=== PATIENT | male | born 1955 | race Caucasian/White ===

== ENCOUNTER 2024-07-10 10:58 | Outpatient (AMB) | payer OTHER, SELFPAY ==
--- NOTE | 2024-07-10 11:28 | AM.OFFWIN_ITS ---
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 Started a week ago Patient Tobacco Use Status: Former Tobacco user Allergies codeine Allergy (Intermediate, Verified 07/10/24 11:35) Headache Do you need a note to return to daycare/school/sports/work: No HPI HPI Comments History of Present Illness Details Patient is a 68-year-old male complaining of 2 days of constipation. He states his constipation has actually been happening for 2 weeks but he started taking MiraLax which helps him have a bowel movement but he has never had issues like this before. He denies any fevers. He does admit to 1 prior abdominal surgery. He states he is passing gas regularly. He states he does get regular colonoscopies in his last 1 was about 10 years ago. [facility] Social History Patient Tobacco Use Status: Former Tobacco user Review of Systems Const All systems reviewed & are unremarkable except as noted in HPI and below Physical Exam Vital Signs: Last Vital Signs Temp 98.1 F 07/10/24 11:29 Pulse 66 07/10/24 11:29 BP 122/78 07/10/24 11:29 Pulse Ox 95 07/10/24 11:29 Oxygen Delivery Method Room Air 07/10/24 11:29 BMI result Body Mass Index 23.0 Const General: cooperative, healthy appearing, comfortable, no acute distress and well developed Orientation/consciousness: patient oriented x3 Limitations: no limitations HEENT Head: Yes normal to inspection Ears: hearing grossly normal bilaterally General nose exam: Normal external nose present Face and sinus: Yes normal facial exam Eyes General: appearance normal, both eyes and all related structures Neck Neck: Yes normal visual inspection and Yes full ROM Resp Effort & Inspection: normal respiratory effort and able to speak in complete sentences GI Inspection: Yes normal to inspection Palpation (GI): Soft to palpation (very small amount of distension) and nontender Auscultation: normal bowel sounds Skin General skin exam: no rashes or lesions noted Neuro General: patient oriented x3 Extrem General: Yes normal to inspection Assessment & Plan Assessment & Plan (1) Constipation: Code(s): K59.00 - Constipation, unspecified Qualifiers: Constipation type: unspecified constipation type Qualified Code(s): K59.00 - Constipation, unspecified Plan: Recommended using daily Colace and senna and Metamucil and then adding in MiraLax as needed, gave him red flag warning signs and when to seek emergent medical care, ie SBO. Also recommended he follow up with his PCP for a colonoscopy if his symptoms continue because he is due for one. Plan see above Coding Level of Care Code Est Pt Level 3 (51064) Diagnoses Constipation, unspecified constipation type K59.00 Constipation type: unspecified constipation type
[2024-07-10 11:29] VITALS: BP 122/78; PULSE 66; TEMP 36.7; O2SAT 95; BMI 23.0
== END 2024-07-10 12:12 | disposition home or self-care (01) ==
PROVIDERS: Visit Provider Physician Assistant
DX: K59.00 Constipation, unspecified (principal)

== ENCOUNTER → 2024-07-10 10:58 | Outpatient (BNVA) | payer OTHER, SELFPAY | DX: K59.00 Constipation, unspecified (principal) ==

== ENCOUNTER 2024-09-12 09:41 | Outpatient (AMB) | payer OTHER, SELFPAY ==
--- NOTE | 2024-09-12 10:05 | MHC.PC.OV ---
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 - see comment Intake Note: establish care Allergies codeine Allergy (Intermediate, Verified 09/12/24 10:06) Headache Medication List - Last Reconciled 09/12/24 by Paulie Her MD ascorbic acid (vitamin C) 1 g PO DAILY atorvastatin 80 mg PO DAILY budesonide-formoterol 160-4.5 mcg/actuation (Symbicort) 1 puff inhalation BID folic acid 1 mg PO DAILY lisinopril 20 mg PO DAILY methotrexate sodium 15 mg PO QWEEK tamsulosin 0.4 mg PO DAILY Tobacco use date assessed: 09/12/24 Fall risk assessment: No Falls in past year Last assessed Fall Risk: 09/12/24 Dental Screening Dental Screen Date: 09/12/24 Did you have a dental visit in the last 12 months?: No Did you have a dental problem in the last 6 months where you did not have access to dental care?: No Was dental information given to patient?: 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 ?? Prior PCP:?Carrie Last office visit/CPE:? > 1 yr ago Acute issue(s):? Umbilical bulge ?? PMHx:? Rheumatoid Arthritis - Dr Santiago. CAD & Stents Cardiology Dr Meek SurgHx:?Umbilical hernia repairs. Coronary stents x 2. HTN. Enlarged prostate. SocHx:? 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 EtOH Social 4 dr a month. No drugs PFSH Surgical History (Updated 09/12/24 @ 10:09 by GENTRY Phillip) Stented coronary artery Social History (Updated 09/12/24 @ 10:09 by GENTRY Phillip) Housing: House Patient Tobacco Use Status: Former Tobacco user e-Cigarette/Vaping Use: Never Used service: No Current occupational status: retired Current occupational exposures/hazards: No Cognitive needs: No Hearing needs: No Vision needs: Yes Questionnaire PHQ-9 Over the last 2 weeks, how often have you been bothered by any of the following problems? 1. Little interest or pleasure in doing things: not at all 2. Feeling down, depressed, or hopeless: not at all 3. Trouble falling or staying asleep, or sleeping too much: not at all 4. Feeling tired or having little energy: not at all 5. Poor appetite or overeating: not at all 6. Feeling bad about yourself - or that you are a failure or have let yourself or your family down: not at all 7. Trouble concentrating on things, such as reading the newspaper or watching television: not at all 8. Moving or speaking so slowly that other people could have noticed. Or the opposite - being so fidgety or restless that you have been moving around a lot more than usual: not at all 9. Thoughts that you would be better off or of hurting yourself in some way: not at all Total score: 0 Depression Screening Interpretation: Negative Depression Screening Done: Yes 50198 - PHQ-9 Billing: Yes Source: Developed by Drs. Aba Larsen, Soraya Marcelino, Indra Duran and colleagues, with an educational lisette from [employer]. Thrive Questionnaire Date Thrive assessed: 09/12/24 I am a: Patient What is your living situation today?: I have a steady place to live Within the past 12 months, did the food you bought not last and you didn't have the money to get more?: Never true Within the past 12 months, did you worry whether your food would run out before you got money to buy more?: Never true Do you have trouble paying for medicines?: No Do you have trouble getting transportation to medical appointments?: No Do you have trouble paying your heating and electricity bill?: No Do you have trouble taking care of your child, family member or friend?: No Do you have trouble with day-to-day activities such as bathing, preparing meals, shopping, managing finances, etc.?: No Are you currently unemployed and looking for a job?: No Are you interested in more education?: No Please select the resources that you would like help with: None Currently or been in a relationship where the following occur: No concerns reported THRIVE Score: 0 AUDIT C Alcohol Use Questionnaire (AUDIT-C) 1. How often do you have a drink containing alcohol?: Monthly or less 2. How many drinks containing alcohol do you have on a typical day when you are drinking?: 1 or 2 3. How often do you have six or more drinks on one occasion?: Never Total Score: 1 OTONIEL-7 AMB Questionnaire OTONIEL-7 Date OTONIEL - 7 assessed: 09/12/24 Feeling nervous, anxious, or on edge: 0 = Not at all Not being able to stop or control worryin = Not at all Worrying too much about different things: 0 = Not at all Trouble relaxin = Not at all Being so restless that it is hard to sit still: 0 = Not at all Becoming easily annoyed or irritable: 0 = Not at all Feeling afraid as if something awful might happen: 0 = Not at all Total OTONIEL-7 score (0-4 normal; 5-9 mild; 10-14 moderate; 15-21 severe): 0 Source: Developed by Drs. Aba Larsen, Soraya Marcelino, Indra Duran and colleagues, with an educational lisette from [employer]. OTONIEL-7 Assessment Billing OTONIEL-7 Assessment Tool: OTONIEL-7 Assessment 11509 Review of Systems Const Denies chills, Denies fatigue, Denies fever(s), Denies headache(s) and Denies weakness ENT Denies dizziness and Denies headache(s) Card Denies chest pain, Denies lightheadedness, Denies dyspnea and Denies other (Palpitations) Resp Denies cough, Denies dyspnea, Denies wheezing and Denies other ( shortness of breath) Musc Denies numbness and Denies tingling Neuro Denies dizziness, Denies headache(s), Denies numbness, Denies tingling, Denies paresthesias and Denies weakness Psych Denies anxiety and Denies depression Endo Denies fatigue Aller/Immun Denies wheezing Physical exam (Primary Care) Vital Signs: Last Vital Signs Temp 98.1 F 09/12/24 10:11 Pulse 85 09/12/24 10:11 Resp 14 09/12/24 10:11 BP 133/65 09/12/24 10:11 Pulse Ox 95 09/12/24 10:11 Oxygen Delivery Method Room Air 09/12/24 10:11 BMI result Body Mass Index 22.7 Tobacco/Smoking Status: Tobacco use Status Tobacco use date assessed 09/12/24 09/12/24 10:15 Patient Tobacco Use Status Former Tobacco user 09/12/24 10:15 e-Cigarette/Vaping Use Never Used 09/12/24 10:15 PHQ-9: PHQ-9 Score PHQ-9: Total score 0 09/12/24 10:15 Depression Screening Interpretation: Negative Thrive Assessment: Date of Thrive Assessment Date Thrive assessed 09/12/24 09/12/24 10:15 Currently or been in a relationship where the following occur: No concerns reported Const General: no acute distress and well developed Nutritional Appearance: well nourished Orientation/consciousness: patient oriented x3 HENMT Head: Yes normocephalic and Yes atraumatic Eyes General: appearance normal, both eyes and all related structures Pupils: Equal, round and reactive pupils present EOM: EOMs intact bilaterally Resp Effort & Inspection: normal respiratory effort Auscultation: clear to auscultation bilaterally Cardio Rate: regular rate Rhythm: regular rhythm Heart sounds: S1 normal heart sound present, S2 normal heart sound present, no gallops, no murmurs and no rubs Neuro General: patient oriented x3 and gait normal Cranial nerves: Yes Equal, round and reactive pupils present Psych Affect: normal affect Coding Level of Care Code New Pt Level 3 (30058) Diagnoses CAD (coronary artery disease) I25.10 Hypertension I10 Rheumatoid arthritis M06.9 Umbilical mass R19.09 Smoker F17.200 Incomplete emptying of bladder R33.9 Laboratory exam ordered as part of routine general medical examination Z00.00 Additional Codes OTONIEL-7 Assessment Billing - OTONIEL-7 Assessment Tool: OTONIEL-7 Assessment 45773 ([id number]) PHQ-9 - 51489 - PHQ-9 Billing: Yes ([id number]) Assessment & Plan Assessment & Plan (1) CAD (coronary artery disease): Code(s): I25.10 - Atherosclerotic heart disease of [place] coronary artery without angina pectoris Category: Medical Plan: Stable.??Patient?is?on?atorvastatin?and?followed?by?cardiology Control?blood?pressure.??Goal?is?less?than?30/80 Follow-up?with?Cardiology?as?recommended (2) Hypertension: Code(s): I10 - Essential (primary) hypertension Category: Medical Plan: Blood?pressure?is?fairly?well?controlled?on?lisinopril?20?mg?daily.??Goal?is?less?than?130/80 Continue?current?medication Full?with?Cardiology (3) Rheumatoid arthritis: Code(s): M06.9 - Rheumatoid arthritis, unspecified Category: Medical Plan: He?is?methotrexate?and?followed?[facility]?as?recommended (4) Umbilical mass: Code(s): R19.09 - Other intra-abdominal and pelvic swelling, mass and lump Category: Medical Plan: History?umbilical?hernia?repair Patient?has?new?herniations?likely?through?mesh Referred?to?general?surgery (5) Smoker: Code(s): F17.200 - Nicotine dependence, unspecified, uncomplicated Category: Social Hx Plan: Patient?was?30+?year?smoker?quit?less?than?15?years?ago He?says?he?is?due?for?LDCT?which?ordered?today. 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?urology (7) Laboratory exam ordered as part of routine general medical examination: Code(s): Z00.00 - Encounter for general adult medical examination without abnormal findings Category: Medical Plan: Check?labs Orders: Orders Microalbumin, Random (w Creat) Today I10 - Essential (primary) hypertension Lipid Panel Today Z00.00 - Encounter for general adult medical examination without abnormal findings TSH reflex Free T4 Today Z00.00 - Encounter for general adult medical examination without abnormal findings CT lung screening Today F17.200 - Nicotine dependence, unspecified, uncomplicated Comprehensive [place]. Panel Fast Today Z00.00 - Encounter for general adult medical examination without abnormal findings Complete Blood Count Auto Diff Today Z00.00 - Encounter for general adult medical examination without abnormal findings Prostate Specific Antigen Scr Today Z12.5 - Encounter for screening for malignant neoplasm of prostate UA and rflx microscopic Today Z00.00 - Encounter for general adult medical examination without abnormal findings Referrals General Surgery Referral K42.9 - Umbilical hernia without obstruction or gangrene Urology Referral R33.9 - Retention of urine, unspecified
[2024-09-12 10:11] VITALS: BP 133/65; PULSE 85; RESP 14; TEMP 36.7; O2SAT 95; BMI 22.7
== END 2024-09-12 11:05 | disposition home or self-care (01) ==
PROVIDERS: Visit Provider Family Medicine
DX: I25.10 Atherosclerotic heart disease of native coronary artery without angina pectoris (principal); I10 Essential (primary) hypertension; M06.9 Rheumatoid arthritis, unspecified; R19.09 Other intra-abdominal and pelvic swelling, mass and lump; F17.200 Nicotine dependence, unspecified, uncomplicated; R33.9 Retention of urine, unspecified; Z00.00 Encounter for general adult medical examination without abnormal findings

== ENCOUNTER → 2024-09-12 09:41 | Outpatient (BNVA) | payer OTHER, SELFPAY | LOC: CF 09-13 08:30 | PROVIDERS: Visit Provider Family Medicine | DX: I25.10 Atherosclerotic heart disease of native coronary artery without angina pectoris (principal); I10 Essential (primary) hypertension; M06.9 Rheumatoid arthritis, unspecified; R19.09 Other intra-abdominal and pelvic swelling, mass and lump; R33.9 Retention of urine, unspecified; F17.200 Nicotine dependence, unspecified, uncomplicated; Z79.899 Other long term (current) drug therapy | CPT/HCPCS: 96127 ==

== ENCOUNTER 2024-09-13 08:31 | Outpatient (REF) | payer OTHER, SELFPAY ==
[2024-09-13 10:06] LABS: MANUAL DIFF FLAG NO
[2024-09-13 10:19] LABS: Appearance Urine Clear; Color Urine Yellow; Glucose Urine UA Negative (Negative); Leukocyte Esterase Urine Negative (Negative); Nitrite Urine Negative (Negative); PH 5.5 (5.0-9.0); Specific Gravity - Urine <= 1.005 (1.005-1.025); Urine Blood Negative (Negative); Urine Ketones Negative (Negative); Urine Protein Negative (Neg-Trace)
[2024-09-13 10:20] LABS: Basophils Percent Auto 0.4 % (0-2); Eosinophils Absolute Auto 0.3 X10*3/uL (0.0-0.4); Eosinophils Percent Auto 3.1 % (0-4); Hematocrit 38.3 % (42.0-52.0); Hemoglobin 12.5 g/dl (14.0-18.0); Imm Gran Abs Auto 0.02 X10*3/uL (0.00-0.03); Imm Gran Pct Auto 0.2 % (0.0-0.4); Lymphocytes Absolute Auto 1.2 X10*3/uL (1.2-4.9); Lymphocytes Percent Auto 14.3 % (20-40); Mean Corpuscular HGB Conc 32.6 g/dl (31.0-36.0); Mean Corpuscular Hemoglobin 30.2 pg (27.0-33.0); Mean Corpuscular Volume 92.5 fL (80.0-98.0); Mean Platelet Volume 9.3 fL (9.4-12.4); Monocytes Absolute Auto 0.6 X10*3/uL (0.1-1.2); Monocytes Percent Auto 6.9 % (2-11); Neutrophils Absolute Auto 6.2 x10*3/uL (2.0-8.3); Neutrophils Percent Auto 75.1 % (45-73); Platelet Count 317 X10*3/uL (160-400); Red Blood Count 4.14 X10*6/uL (4.60-5.80); White Blood Count 8.3 X10*3/uL (4.8-10.8)
[2024-09-13 10:48] LABS: Alanine Aminotransferase 22 U/L (0-40); Albumin Level 4.2 g/dL (3.5-5.0); Alkaline Phosphatase 101 U/L (39-117); Anion Gap 14 (12-20); Aspartate Amino Transferase 26 U/L (5-37); Bilirubin Total 0.3 mg/dL (0.0-1.0); Blood Urea Nitrogen 14 mg/dL (9-16); Calcium 9.2 mg/dL (8.4-10.2); Carbon Dioxide 25 mmol/L (22-29); Chloride 105 mmol/L (96-108); Cholesterol 113 mg/dL (<200); Estimated Glomerular Filt Rate > 60; Glucose Fasting 94 mg/dL (60-99); HDL Cholesterol 42 mg/dL (>40); LDL Cholesterol Calculated 56 mg/dL (<100); Potassium 4.2 mmol/L (3.3-5.1); Sodium 140 mmol/L (135-145); TSH reflex Free T4 1.14 uIU/mL (0.32-4.0); Total Protein 7.1 g/dL (6.5-8.0); Triglycerides 78 mg/dL (<150)
[2024-09-13 10:50] LABS: Prostate Specific Antigen Scr 3.16 ng/mL (<0.05-4.0)
[2024-09-13 10:51] LABS: Creatinine Urine 30.93 mg/dL; Microalbumin Urine < 5.0 mg/L
== END 2024-09-13 08:32 | disposition home or self-care (01) ==
LOC: HO.HMGCLDS 08:31
PROVIDERS: PCP Family Medicine; Visit Provider Family Medicine
DX: Z00.00 Encounter for general adult medical examination without abnormal findings (principal); I10 Essential (primary) hypertension; Z12.5 Encounter for screening for malignant neoplasm of prostate
CPT/HCPCS: 36415; 80053; 80061; 81003; 82570; 84153; 84443; 85025

== ENCOUNTER 2024-09-26 10:33 | Outpatient (AMB) | payer OTHER, SELFPAY ==
--- NOTE | 2024-09-26 10:34 | MHC.OFFVIS ---
Vital Signs 09/26/24 10:42 Height 5 ft 10 in Weight 162 lb BMI 23.2 BP 158/69 H Blood Pressure Location Lt brachial Position Sitting Pulse 68 Intake Visit Reasons: Umbilical hernia Intake Note: Patient referred by pcp Dr. Her for umbilical hernia. Present for 3-5m. Hx of umbilical repair 20yrs ago. Patient c/o: bulging out, burning feeling, feels like umbilicus ripped open recently. Outside B2B Sales Required: No Accompanied by: Self / Same As Patient Allergies codeine Allergy (Intermediate, Verified 09/26/24 10:40) Headache HPI Comments Details: Patient was status post umbilical hernia repair open technique roughly 20 years ago. He has noticed some discomfort over the last few months time over this site. During this interim, patient was lost over 30 lb. He otherwise is tolerating his diet. He is having regular bowel habits. Chart was reviewed and patient evaluated [facility] Surgical History Stented coronary artery Social History Housing: House Patient Tobacco Use Status: Former Tobacco user e-Cigarette/Vaping Use: Never Used service: No Current occupational status: retired Current occupational exposures/hazards: No Cognitive needs: No Hearing needs: No Vision needs: Yes Physical Exam Vital Signs: Last Vital Signs Pulse 68 09/26/24 10:42 BP 158/69 H 09/26/24 10:42 BMI result Body Mass Index 23.2 GI Other: Patient was examined both supine and standing with Valsalva. Abdomen is soft and benign. Patient was a small reducible left inguinal hernia. Right groin negative. Genitalia within normal limits. Patient has a scar from prior umbilical hernia repair. He has sutures subcutaneously which are palpable and this is his area of concern. There is no evidence of recurrence of hernia. Assessment & Plan Assessment & Plan (1) Protruding suture present on examination: Code(s): T85.692A - Other mechanical complication of permanent sutures, initial encounter Category: Surgical Plan Patient was reassured that since his weight loss, they sutures have become more prominent. They are not eroding through the skin and in the usual scenario are of no clinical consequence. At present, we will treat the patient conservatively. Should these symptoms progress or worsen or any indeed as a bulge in the hernia area, he has been instructed to contact the office. Otherwise patient will follow-up p.r.n.. All questions answered Coding Level of Care Code New Pt Level 4 (44899) Diagnoses Protruding suture present on examination T85.522S
[2024-09-26 10:42] VITALS: BP 158/69; PULSE 68; BMI 23.2
== END 2024-09-26 10:51 | disposition home or self-care (01) ==
PROVIDERS: PCP Family Medicine; Referring Provider Family Medicine; Visit Provider Surgery
DX: T85.692A Other mechanical complication of permanent sutures, initial encounter (principal)
CPT/HCPCS: 99204

== ENCOUNTER 2024-11-13 10:32 | Outpatient (AMB) | payer OTHER, SELFPAY ==
--- NOTE | 2024-11-13 10:48 | MHC.OFFVIS ---
Intake Visit Reasons: histoyr of retention and BPH Intake Note: Patient is present for HISTORY OF RETENTION AND BPH Urology Medication:TAMSULOSIN Antibiotic Allergy:NONE Blood Thinner:NONE TODAY'S PVE:187ML'S Inspector Exhaust Emissions Required: No Allergies codeine Allergy (Intermediate, Verified 11/13/24 10:52) Headache Medication List - Last Reconciled 11/13/24 by Osiris Oreilly MD ascorbic acid (vitamin C) 1 g PO DAILY atorvastatin 80 mg PO DAILY 90 days budesonide-formoterol 160-4.5 mcg/actuation (Symbicort) 1 puff inhalation BID dutasteride (Avodart) 0.5 mg PO DAILY folic acid 1 mg PO DAILY lisinopril 20 mg PO DAILY 90 days methotrexate sodium 15 mg PO QWEEK tamsulosin 0.4 mg PO DAILY HPI Comments Details: Jorge is a 69-year-old male who is here for evaluation due to enlarged prostate and incomplete bladder emptying. The patient states he gets up 1-3 times at night to urinate. He denies irritative voiding symptoms. He admits to drinking a lot of coffee throughout the day about 32 oz. He states he drinks decaffeinated coffee. I have discussed cutting back on coffee intake to about 12 oz. Reviewed PSA lab results with the patient which is within normal limits. Bladder scan PVR today is 187 mL. He is on tamsulosin daily, I have discussed adding Avodart 0.5 mg daily. Will check ultrasound retroperitoneal follow-up in 4 months PSA-09/13/2024--3.13 ng mL PFSH Surgical History Stented coronary artery Social History Housing: House Patient Tobacco Use Status: Former Tobacco user e-Cigarette/Vaping Use: Never Used service: No Current occupational status: retired Current occupational exposures/hazards: No Cognitive needs: No Hearing needs: No Vision needs: Yes Review of Systems Const All systems reviewed & are unremarkable except as noted in HPI and below Reports no additional complaints Eyes Reports no additional complaints ENT Reports no additional complaints Card Reports no additional complaints Resp Reports no additional complaints GI Reports no additional complaints Reports as per HPI Musc Reports no additional complaints Skin/Breast Reports system reviewed and no additional complaints, except as documented Neuro Reports no additional complaints Psych Reports no additional complaints Endo Reports no additional complaints Randell/Lymph Reports no additional complaints Aller/Immun Reports no additional complaints Physical Exam Const General: healthy appearing, no acute distress and well developed Orientation/consciousness: patient oriented x3 HEENT Head: Yes normocephalic and Yes atraumatic Eyes Conjunctivae: conjunctivae normal Neck Neck: Yes normal visual inspection Chest Chest palpation & inspection: normal inspection of the chest Resp Effort & Inspection: normal respiratory effort Cardio Rate: regular rate GI Inspection: Yes normal to inspection Palpation (GI): Soft to palpation Neuro General: patient oriented x3 Psych Appearance: grossly normal Affect: normal affect Office Procedures Post Void Residual Post Residual Void Post Void Residual (PVR): 187 [id number] Void Residual by ultrasound Assessment & Plan Assessment & Plan (1) Incomplete emptying of bladder: Code(s): R33.9 - Retention of urine, unspecified Category: Medical (2) BPH loc w urin obs/LUTS: Code(s): N40.1 - Benign prostatic hyperplasia with lower urinary tract symptoms Category: Medical Plan The patient is prescribed tamsulosin 0.4 mg daily. Avodart 0.5 mg sent to the pharmacy. Ultrasound retroperitoneal. Orders: Orders AMB Urinalysis Automated Today Z13.9 - Encounter for screening, unspecified US retroperitoneal comp 6 Weeks N40.1 - Benign prostatic hyperplasia with lower urinary tract symptoms, R33.9 - Retention of urine, unspecified Medications: New dutasteride (Avodart) 0.5 mg PO DAILY 90 caps 3RF Patient Instructions: The patient had an opportunity to ask questions regarding treatment plan. The patient expressed understanding and agreement with the above treatment plan. The patient is aware they should contact our office by phone for worsening of their current condition or the appearance of new symptoms. Compliance is encouraged with any medications and followup testing that is ordered. It is a privilege to be allowed the opportunity to participate in the urologic care of your patient. If you have any questions or concerns regarding treatment for the above conditions please do not hesitate to contact me. The office telephone contact is [phone]. This note is constructed in part using voice recognition software. While every effort has been made to ensure accuracy inside solar sales consultant errors may have been included. Yours sincerely, Osiris Oreilly MD Coding Level of Care Code New Pt Level 4 (57471) Diagnoses Incomplete emptying of bladder R33.9 BPH loc w urin obs/LUTS N40.1 CPT Codes Post Residual Void - PVR CPT Code: 45188-Toih Void Residual by ultrasound ([id number])
== END 2024-11-13 11:25 | disposition home or self-care (01) ==
PROVIDERS: PCP Family Medicine; Visit Provider Urology
DX: R33.9 Retention of urine, unspecified (principal); N40.1 Benign prostatic hyperplasia with lower urinary tract symptoms; Z13.9 Encounter for screening, unspecified
CPT/HCPCS: 99204

== ENCOUNTER → 2024-11-13 10:32 | Outpatient (BNVA) | payer OTHER, SELFPAY | PROVIDERS: PCP Family Medicine; Visit Provider Urology | DX: N40.1 Benign prostatic hyperplasia with lower urinary tract symptoms (principal); N13.8 Other obstructive and reflux uropathy; R33.8 Other retention of urine | CPT/HCPCS: 51798; 81003 ==

== ENCOUNTER 2024-12-26 09:52 | Outpatient (REF) | payer OTHER, SELFPAY ==
--- NOTE | ~2024-12-26 | US_ITS ---
CLINICAL HISTORY: N40.1 - Benign prostatic hyperplasia with lower urinary tract symptoms US retroperitoneum with color Doppler Comparison: None Findings: Right kidney normal size and echotexture, 12.0 cm length. No hydronephrosis. Normal color flow. No nephrolithiasis. Benign renal cortical cyst lower pole measuring 1.4 x 1.0 x 1.2 cm. Left kidney normal size and echotexture, 11.3 cm in length. No hydronephrosis. Normal color flow. No nephrolithiasis. Complex cystic lesion with septation midpole measuring 0.7 x 0.6 x 0.7 cm. Urinary bladder is unremarkable. Prevoid volume 195.0 mL. Postvoid volume 155 mL. Ureteral jets are visualized bilaterally Prostate gland measures 3.8 x 3.9 x 3.8 cm. Volume 29.5 cc. Complex cystic lesion within the prostate gland measuring 2.1 x 2.1 x 2.2 cm. Impression: 1. Elevated postvoid residual. Prostate volume 155 cc. 2. Complex cystic lesion seen within the prostate gland. MRI may be of further diagnostic value. 3. Complex cystic lesion lower pole left kidney CT or MRI with and without contrast renal protocol study can be considered. This document has been electronically signed by: Refugio Hicks MD on 12/26/2024 17:59:24
--- OUTSIDE RECORDS SUMMARY | 2024-12-26 11:29 | XMS_ITS ---
Author Organization [facility] Address [address] [place] [address] Care Team Providers Care Die Setter Name Role Phone DEANNE DIAS Primary Care Provider [phone] DEANNE DIAS Unavailable [phone] REASON FOR VISIT Patient Transferred Out Encounters Encounter Location Date Provider Diagnosis [facility] [address] [place] [address] 09/20/2023 DEANNE DIAS Plan Of Treatment No Information Progress Notes * Jorge DELVALLEDOB:1955 (68 yo M)Acc No.[id number]:09/20/2023 Patient:?MookJorge ritter :1955???Age:68 Y???Sex:Male [address]:[address] [place] [address], [id number] * true * Date:? Generated for Lottiei dez/Adela/eTransmitting on:?12/26/2024 11:29 AM EST
--- OUTSIDE RECORDS SUMMARY | 2024-12-26 11:30 | XMS_ITS ---
Author Organization [facility] Address [address] [place] [address] Care Team Providers Care Racecourse Barrier Attendant Name Role Phone AYAKA DIAS Primary Care Provider [phone] AYAKA DIAS Unavailable [phone] SUNIL HAWTHORNE Unavailable [phone] Allergies Allergen (clinical drug ingredient) Drug/Non Drug Allergy documented on EMR Reaction Allergy Type Onset Date Status codeine Codeine Headaches Drug Allergy Active REASON FOR VISIT Follow-Up: DM & Lipids, Last Labs: 07/08/23, EKG Needed @ Next Annual Visit Medications Medication SIG (Take, Route, Frequency, Duration) Notes Start Date End Date Status Ezetimibe 10 MG 1 tablet Orally Once a day for 30 day(s) Not-Taking Saw Ambrose 500 MG as directed Orally Not-Taking Lisinopril 20 MG TAKE 1 TABLET BY EVERY DAY for 90 Active Symbicort 160-4.5 MCG/ACT INHALE 2 PUFFS BY MOUTH TWICE DAILY for 30 Active Tamsulosin HCl 0.4 MG TAKE 1 CAPSULE BY MOUTH EVERY DAY 30 MINUTES AFTER THE SAME MEAL for 90 Active Atorvastatin Calcium 80 MG TAKE 1 TABLET BY MOUTH EVERY DAY for 90 Active Aspir-81 81 MG 1 tablet Orally Once a day for 90 Active Vitamin C 1000 MG as directed Orally Active Vitamin B-12 1000 MCG 1 tablet Orally On ce a day for 30 day(s) Active Sildenafil Citrate 100 MG 1 tablet as ne eded Orally Once a day for 90 days Active Methotrexate 2.5 MG as directed Orally 6 Tabs On Saturdays Active Folic Acid 1 MG 1 tablet Orally Once a day Active Social History Tobacco Use: Social History Observation Description Date Details (start date - stop date) Former Smoker NA - NA Tobacco Use/Smoking Question Answer Notes Are you a former smoker How long has it been since you last smoked? 1-5 years Additional Findings: Tobacco Non-User Current no n-smoker Alcohol Screen (Audit-C) Question Answer Notes Did you have a drink contain ing alcohol in the past year? Yes How often did you have a dri nk containing alcohol in the past year? 2 to 4 times a month (2 points) How many drinks did you have on a typical day when you were drinking in the past year? 1 or 2 drinks (0 point) How often did you have 6 or more drinks on one occasion in the past year? Never (0 point) Points 2 Interpretation Negative Tobacco use other than smoking: Question Answer Notes Are you an other tobacco user? 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 Swam in [facility]. Worked at [employer] 19 years. 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 played alot of [employer]. Now does back country hiking 3-4 months a year. Travels through the country by car sightseeing. In relationship satya Hawk for 21 years. 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 Lives in [place] but also has [employer] in [place] Has two grandsons. Problems Problem Type SNOMED Code ICD Code Onset Dates Problem Status W/U Status Risk Notes Problem Rheumatoid arthritis (72472442) Rheumatoid arthritis (M06.9) Active confirmed Vital Signs Temperature 98.5 degrees Fahrenheit 07/12/20 23 Blood pressure systolic 124 mm Hg 07/12/20 23 Blood pressure diastolic 62 mm Hg 023 Heart Rate 74 /min 07/12/2023 Height 70 in 07/12/2023 Weight 163 lbs 07/12/2023 BMI 23.39 kg/m2 07/12/2023 Oximetry 96 % 07/12/2023 Encounters Encounter Location Date Provider Diagnosis [address] [place] [address] 07/12/2023 SUNIL HAWTHORNE Type 2 diabetes mellitus E11.9 ; Essential hypertension I10 ; Coronary artery disease involving [place] coronary artery of [place] heart without angina pectoris I25.10 ; Benign prostatic hyperplasia with lower urinary tract symptoms N40.1 ; Erectile dysfunction N52.9 ; Pulmonary nodule R91.1 ; Hand pain, left M79.642 and Rheumatoid arthritis M06.9 Assessments Encounter Date Diagnosis (ICD Code) Assessment Notes Treatment Notes Treatment Clinical Notes Section Notes 07/12/2023 Type 2 diabetes mellitus (ICD-10 - E11.9) 07/12/2023 Essential hypertension (ICD-10 - I10) 07/12/2023 Coronary artery disease involving [place] coronary artery of [place] heart without angina pectoris (ICD-10 - I25.10) 07/12/2023 Benign prostatic hyperplasia with lower urinary tract symptoms (ICD-10 - N40.1) 07/12/2023 Erectile dysfunction (ICD-10 - N52.9) 07/12/2023 Pulmonary nodule (ICD-10 - R91.1) 07/12/2023 Hand pain, left (ICD-10 - M79.642) 07/12/23 Wears wrist braces at night 07/12/2023 Rheumatoid arthritis (ICD-10 - M06.9) 07/12/23 Diagnosed 25 yrs ago Never treated Saw Dr Santiago and now put on Methotrexate 2.5 mg 6 tablets every wednesday Plan Of Treatment Next Appt Details Follow Up: 6 Months, Reason: Progress Notes * Jorge DELVALLEDOB:1955 (67 yo M)Acc No.[id number]:07/12/2023 Progress Notes Patient:?Jorge Delvalle Provider:?Sunil Hawthorne MD :1955???Age:67 Y???Sex:Male Jose e:07/12/2023 Address:[address] [place], [place] [id number] Pcp:AYAKA Oneal Subjective: * Chief Complaints: * ???Follow-Up: DM & LipidsLas t Labs: 07/08/23EKG Needed @ Next Annual Visit * HPI: ???New/Follow-up Patient Consult:? 07/12/23 Seen after [address] Luke Santiago after [facility]. Saw him three times , last wednesday. Put on Methotrexate 2.5 mg Started on 4 tablets once a week on Saturdays and now 6 tablets Also Folic Acid 1 mg daily, Nate noticed any improvement in his wrist pain He wears 2 braces on the left wrist at night and one on right wrist. Scheduled for echo after 3 days with gas turbine assembler Dr Landon . Meds reviewed . No new complaints today. His sister of Covid in Nov 2022 in [place] Drove over there in February for the . Has 4 children ?01/08/23 Medications reviewed and reconciled ?Saw Dr Hawthorne wanted to go to her Dr Petrona sanz, they did xrays, EMG testing. She said no carpel tunnel. she did surgery in both hands and removed bone and helped. ?Has a pinhole in side of left hand, dr petrona sanz recommend engineer specialist. Used to see Dr Toscano a long time ago. he is moving to [place] so will refer to arthritis treatment center. (Jerry drake, Jack) ?Since august watches food intake, stopped cupcakes, pastries. nothing with more then 2 g of sugar. ?CT lung screening normal, no change ?Aortic aneurysm screening negative ?Going in june for echo and to follow up with cardiology ?10/12/22 67 yr old male, seeing Ayaka for past 2 years. States he is in excellent health and hikes and uses treadmill every morning for 30 minutes at [facility]. Has 2 stents in his heart. Lived in [facility] for 54 yrs. Moved to [place] at [place] for 5 years and then moved back to [place] 10 years ago because of his GF. Lives with her 23 years . 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 with 2 sons Murray 7 yr and Paul 11 yrs . Keeps in touch Lives in [facility] in [place]. ([phone]) . Carine has 2 children Margaret Angel 33 yr Special needs Lives with them [place]. Graduated from College. 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 ?Meds reviewed and reconciled Former smoker. Stopped 2015 Customer Service Trainer is Dr Meek Saw him early this year Once a year. Sees eye doctor every 2 years. Sharon started him on Tamsulosin a month ago and fels improvement in his urination. ?Hobbies , Travelling in his car a month at a tiime without a destination Went to [facility] last year. Visted his siter in [facility] last February 2022. ? Comes today for evaluation of hand swelling and numbness which started last Woke up and coulldnt open his hands Its beter but still stiff . Never happened before. * ROS:?General/Constitutional:?Denies?Change in appetite.?Denies?Chills.?Denies?Fatigue.?Denies?Fever.?Denies?Headache.?Denies?L ightheadedness.?ENT:?Denies?Blocked ear.?Denies?Decreased hearing.?Denies?Decreased sense of smell.?Denies?Deviated septum.?Denies?Difficulty swallowing.?Denies?Dry mouth.?Denies?Ear pain.?Denies?Ear problems. Denies?Hearing screen.?Denies?Nose/Throat problems,?denies.?Denies?Nosebleed.?Denies?Ringing in the ears.?Denies?Sinus pain.?Denies?Snoring,?denies.?Denies?Sore throat.?Denies?Swollen glands.?Cardiovascular:?Denies?Chest pain.?Denies?Chest pain at rest.?Denies?Chest pain with exertion.?Denies?Claudication.?Denies?Difficulty laying flat.?Denies?Dizziness.?Denies?Dyspnea on exertion.?Denies?Fluid accumulation in the legs.?Denies?Irregular heartbeat.?Denies?Orthopnea.?Denies?Palpitations.?Denies?Shortness of breath.?Swelling in hands/feet?denies.?Denies?Weakness.?Gastrointestinal:?Denies?Abdominal pain.?Denies?Blood in stool.?Denies?Change in bowel habits.?Denies?Constipation.?Denies?Decreased appetite.?Denies?Diarrhea.?Denies?Difficulty swallowing.?Denies?Heartburn.?Denies?Hematemesis.?Denies?Nausea.?Denies?Vomiting .?Hematology:?Denies?Bleeding problems.?Denies?Easy bruising.?Denies?Swollen glands.?Men Only:?Admits?Difficulty initiating stream.?Denies?Dribbling after urination.?Denies?Lump in groin.?Denies?Scrotal pain.?Genitourinary:?Denies?Abdominal pain/swelling.?Denies?Blood in urine.?Denies?Difficulty urinating.?Admits?Frequent urination.?Musculoskeletal:?Denies?Joint stiffness.?Denies?Muscle aches.?Denies?Swollen joints.?Denies?Weakness.?Peripheral Vascular:?Denies?Cold extremities.?Denies?Decreased sensation in extremities.?Denies?Pain/cramping in legs after exertion.?Denies?Painful extremities.?Denies?Ulceration of feet.?Skin:?Denies?Dry skin.?Denies?Hives.?Denies?Itching.?Denies?Rash.?Denies?Skin lesion(s).?Denies?Skin oozing.?Neurologic:?Denies?Balance difficulty.?Denies?Coordination.?Denies?Difficulty speaking.?Denies?Dizziness.?Denies?Fainting.?Denies?Gait abnormality.?Denies?Headache.?Denies?Loss of strength.?Denies?Memory loss.?Denies?Tingling/Numbness.?Denies?Transient loss of vision.?Denies?Tremor.?Psychiatric:?Denies?Anxiety.?Denies?Depressed mood.? * Medical History:? * Surgical History:?[facility] surger y for severe OA bilat. Gene Tapia 2015 and 2017angioplasty with stent Circumflex 99% occlusion 10/12/2016umbiilacat hernia repair with mesh Dr Flores[facility] * Hospitalization/Major Diagno stic Procedure:? * Family History:?Father: dece ased 78 yrs, of CAD, had polio in use, severe back problems, diagnosed with Unspecified heart disease.?Mother: 63 yrs, cancer.? 2 sisters One lives in [place] and one lives in [place] Hypertension. younger sister had stomach problems for 20 years, began after childbirth and from it. * Social History:?Tobacco Use:?Tobacco Use/Smoking?Are you a?former smoker ?How long has it been since you last smoked??1-5 years ?Additional Findings: Tobacco Non-User?Current non-smoker ?Tobacco use other than smoking?Are you an other tobacco user??No ???Drugs/Alcohol:?Alcohol Screen (Audit-C)?Did you have a drink containing alcohol in the past year??Yes ?How often did you have a drink containing alcohol in the past year??2 to 4 times a month (2 points) ?How many drinks did you have on a typical day when you were drinking in the past year??1 or 2 drinks (0 point) ?How often did you have 6 or more drinks on one occasion in the past year??Never (0 point) ?Points?2 ?Interpretation?Negative ???Miscellaneous:?Exercise: [place]. ?Home smoke detector use: smoke detectors, carbon monoxide detector. ?Housing: [facility] [place]. ?Living with: significant other. ?Marital status: , in relationship with male partner. 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 Swam in [facility]. Worked at [employer] 19 years. 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 played alot of [employer]. Now does back country hiking 3-4 months a year. Travels through the country by car sightseeing. In relationship satya Hawk for 21 years. 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 Lives in [place] but also has [employer] in [place] Has two grandsons. * Medications:?TakingFolic Aci d 1 MG Tablet 1 tablet Orally Once a dayMethotrexate 2.5 MG Tablet as directed Orally 6 Tabs On SaturdaysSildenafil Citrate 100 MG Tablet 1 tablet as needed Orally Once a dayVitamin B-12 1000 MCG Tablet 1 tablet Orally Once a dayVitamin C 1000 MG Tablet as directed Orally Aspir-81 81 MG Tablet Delayed Release 1 tablet Orally Once a dayAtorvastatin Calcium 80 MG Tablet TAKE 1 TABLET BY MOUTH EVERY DAY Tamsulosin HCl 0.4 MG Capsule TAKE 1 CAPSULE BY MOUTH EVERY DAY 30 MINUTES AFTER THE SAME MEAL Symbicort 160-4.5 MCG/ACT Aerosol INHALE 2 PUFFS BY MOUTH TWICE DAILY Lisinopril 20 MG Tablet TAKE 1 TABLET BY MOUTH EVERY DAY Taking Folic Acid 1 MG Tablet 1 tablet Orally Once a dayTaking Methotrexate 2.5 MG Tablet as directed Orally 6 Tabs On SaturdaysTaking Sildenafil Citrate 100 MG Tablet 1 tablet as needed Orally Once a dayTaking Vitamin B-12 1000 MCG Tablet 1 tablet Orally Once a dayTaking Vitamin C 1000 MG Tablet as directed Orally Taking Aspir-81 81 MG Tablet Delayed Release 1 tablet Orally Once a dayTaking Atorvastatin Calcium 80 MG Tablet TAKE 1 TABLET BY MOUTH EVERY DAY Taking Tamsulosin HCl 0.4 MG Capsule TAKE 1 CAPSULE BY MOUTH EVERY DAY 30 MINUTES AFTER THE SAME MEAL Taking Symbicort 160-4.5 MCG/ACT Aerosol INHALE 2 PUFFS BY MOUTH TWICE DAILY Taking Lisinopril 20 MG Tablet TAKE 1 TABLET BY MOUTH EVERY DAY Not-TakingSaw Ambrose 500 MG Capsule as directed Orally Ezetimibe 10 MG Tablet 1 tablet Orally Once a dayMedication List reviewed and reconciled with the patientNot-Taking Saw Ambrose 500 MG Capsule as directed Orally Not-Taking Ezetimibe 10 MG Tablet 1 tablet Orally Once a dayMedication List reviewed and reconciled with the patient * Allergies:?Codeine: Headache s - Side Effectsno[Allergies Verified] Objective: * Vitals:?Temp: 98.5 F, HR: 74 /min, BP: 124/62 mm Hg, Wt: 163 lbs, BMI:23.39 Index, Ht: 70 in, Oxygen sat %: 96 %, Ht-cm: 177.8 cm, Wt-k.94 kg. * ???Past Orders: Lab:MICROALB/CREAT RATIO, RA NDOM * Order Date 07/08/2023 11/30/2022 CREATININE, RANDOM URINE 101 (Ref Range: mg/dL) 131 (Ref Range: mg/dL) MICROALB/CRE RATIO RANDOM 21.1 (Ref Range: 0.0-30.0 mg/G) 20.8 (Ref Range: 0.0-30.0 mg/G) MICROALBUMIN, RANDOM 21.4 (Ref Range: 0.0-29.0 mg/L) 27.3 (Ref Range: 0.0-29.0 mg/L) * Lab:GLYCOHEMOGLOBIN PROFILE * Order Date 07/08/2023 11/30/2022 09/01/2022 ESTIMATED AVERAGE GLUCOSE 137 (Ref Range: mg/dL) 143 (Ref Range: mg/dL) 143 (Ref Range: mg/dL) GLYCATED HEMOGLOBIN A1C 6.4 (Ref Range: <6.5 %) 6.6?H (Ref Range: <6.5 %) 6.6?H (Ref Range: <6.5 %) * Lab:COMPREHENSIVE METABOLIC PANEL * Order Date 07/08/2023 11/30/2022 09/01/2022 ALBUMIN 3.8 (Ref Range: 3.2-5.0 G/dL) 3.7 (Ref Range: 3.2-5.0 G/dL) 3.5 (Ref Range: 3.2-5.0 G/dL) ALK PHOS 93 (Ref Range: 42-121 U/L) 114 (Ref Range: 42-121 U/L) 110 (Ref Range: 42-121 U/L) SGPT 37 (Ref Range: 10-60 U/L) 26 (Ref Range: 10-60 U/L) 32 (Ref Range: 10-60 U/L) ANION GAP 4 (Ref Range: 3-11) 6 (Ref Range: 3-11) 6 (Ref Range: 3-11) SGOT 25 (Ref Range: 10-42 U/L) 14 (Ref Range: 10-42 U/L) 19 (Ref Range: 10-42 U/L) BILI,TOTAL 0.5 (Ref Range: 0.0-1.4 mg/dL) 0.3 (Ref Range: 0.0-1.4 mg/dL) 0.4 (Ref Range: 0.0-1.4 mg/dL) BUN 14 (Ref Range: 5-25 mg/dL) 16 (Ref Range: 5-25 mg/dL) 17 (Ref Range: 5-25 mg/dL) CALCIUM 9.2 (Ref Range: 8.5-10.5 mg/dL) 8.8 (Ref Range: 8.5-10.5 mg/dL) 8.9 (Ref Range: 8.5-10.5 mg/dL) CHLORIDE 106 (Ref Range: 96-110 mmol/L) 108 (Ref Range: 96-110 mmol/L) 103 (Ref Range: 96-110 mmol/L) CO2 28 (Ref Range: 21-32 mmol/L) 26 (Ref Range: 21-32 mmol/L) 28 (Ref Range: 21-32 mmol/L) CREAT 0.84 (Ref Range: 0.7-1.3 mg/dL) 0.85 (Ref Range: 0.7-1.3 mg/dL) 0.82 (Ref Range: 0.7-1.3 mg/dL) GLOMERULAR FILTRATION RATE 94 (Ref Range: >60) 94 (Ref Range: >60) 95 (Ref Range: >60) GLUCOSE 97 (Ref Range: 70-100 mg/dL) 93 (Ref Range: 70-100 mg/dL) 113?H (Ref Range: 70-100 mg/dL) POTASSIUM 5.0 (Ref Range: 3.5-5.5 mmol/L) 4.3 (Ref Range: 3.5-5.5 mmol/L) 4.7 (Ref Range: 3.5-5.5 mmol/L) SODIUM 138 (Ref Range: 135-145 mEq/L) 140 (Ref Range: 135-145 mEq/L) 137 (Ref Range: 135-145 mEq/L) TOTAL PROTEIN 6.8 (Ref Range: 6.0-8.0 G/dL) 7.0 (Ref Range: 6.0-8.0 G/dL) 7.3 (Ref Range: 6.0-8.0 G/dL) ???Lab:CC PRIMARY (Order Date - 04/29/2023) (Collection Date - 04/29/2023) ???Lab:LYME PROFILE (Order Date - 12/07/2022) (Collection Date - 12/07/2022) ?ValueReference Range?LYME DISEASE ANTIBODIESNEGATIVENEGATIVE - ?Notes: SHARON VILLEGAS 12/10/2022 12:04:37 PM >Viry Mccabe MD, not this office * Lab:RHEUMATOID FACTOR * Order Date 12/07/2022 02/13/2021 11/09/2019 RHEUMATOID FACTOR 222?H (Ref Range: <15 IU/mL) 219?H (Ref Range: <15 IU/mL) 147?H (Ref Range: <15 IU/mL) Notes: OV 02/21 GONSALO DIAS 11/14/2019 5:19:41 PM > ???Lab:ESR (Order Date - 12/07/2022) (Collection Date - 12/07/2022)?Value Reference Range?[id number] - mm/hr ???Lab:URIC ACID (Order Date - 12/07/2022) (Collection Date - 12/07/2022) ?ValueReference Range?URIC [id number] - mg/dL * Lab:CBC WITH AUTO DIFF * Order Date 12/07/2022 11/30/2022 09/01/2022 BASO # 0.03 (Ref Range: 0-0.2 x10-3/uL) 0.03 (Ref Range: 0-0.2 x10-3/uL) 0.03 (Ref Range: 0-0.2 x10-3/uL) BASO % 0.3 (Ref Range: %) 0.4 (Ref Range: %) 0.4 (Ref Range: %) EOS # 0.08 (Ref Range: 0-0.5 x10-3/uL) 0.41 (Ref Range: 0-0.5 x10-3/uL) 0.37 (Ref Range: 0-0.5 x10-3/uL) EOS % 0.9 (Ref Range: %) 5.4 (Ref Range: %) 4.6 (Ref Range: %) HEMATOCRIT 46.3 (Ref Range: 42-54 %) 43.3 (Ref Range: 42-54 %) 42.3 (Ref Range: 42-54 %) HEMOGLOBIN 14.3 (Ref Range: 13.5-17.5 g/dL) 13.6 (Ref Range: 13.5-17.5 g/dL) 13.5 (Ref Range: 13.5-17.5 g/dL) IMMATURE GRANULOCYTES % 0.6 (Ref Range: %) 0.4 (Ref Range: %) 0.4 (Ref Range: %) IMMATURE GRANULOCYTES # 0.05?H (Ref Range: 0-0.03 x10-3/uL) 0.03 (Ref Range: 0-0.03 x10-3/uL) 0.03 (Ref Range: 0-0.03 x10-3/uL) LYMPH # 1.76 (Ref Range: 1-5.0 x10-3/uL) 1.48 (Ref Range: 1-5.0 x10-3/uL) 1.50 (Ref Range: 1-5.0 x10-3/uL) LYMPH % 19.8 (Ref Range: %) 19.5 (Ref Range: %) 18.8 (Ref Range: %) MCH 28.9 (Ref Range: 27-32 pg) 28.9 (Ref Range: 27-32 pg) 29.8 (Ref Range: 27-32 pg) MCHC 30.9?L (Ref Range: 32-37 g/dL) 31.4?L (Ref Range: 32-37 g/dL) 31.9?L (Ref Range: 32-37 g/dL) MCV 93.5 (Ref Range: 79-98 fL) 91.9 (Ref Range: 79-98 fL) 93.4 (Ref Range: 79-98 fL) MONO # 0.70 (Ref Range: 0.2-1.0 x10-3/uL) 0.58 (Ref Range: 0.2-1.0 x10-3/uL) 0.75 (Ref Range: 0.2-1.0 x10-3/uL) MONO % 7.9 (Ref Range: %) 7.7 (Ref Range: %) 9.4 (Ref Range: %) MEAN PLATELET VOLUME 9.6 (Ref Range: 7-11 fL) 9.7 (Ref Range: 7-11 fL) 9.5 (Ref Range: 7-11 fL) ABSOLUTE NEUT 6.29 (Ref Range: 1.5-7.0 x10-3/uL) 5.05 (Ref Range: 1.5-7.0 x10-3/uL) 5.30 (Ref Range: 1.5-7.0 x10-3/uL) NEUT % 70.5 (Ref Range: %) 66.6 (Ref Range: %) 66.4 (Ref Range: %) NRBC # AUTO DIFF 0.00 (Ref Range: <0.1 x10-3/uL) 0.00 (Ref Range: <0.1 x10-3/uL) 0.00 (Ref Range: <0.1 x10-3/uL) NRBC % AUTO DIFF 0.0 (Ref Range: <1 %) 0.0 (Ref Range: <1 %) 0.0 (Ref Range: <1 %) PLT COUNT 386 (Ref Range: 130-400 x10-3/uL) 343 (Ref Range: 130-400 x10-3/uL) 382 (Ref Range: 130-400 x10-3/uL) RBC 5.0 (Ref Range: 4.5-5.5 x10-6/uL) 4.7 (Ref Range: 4.5-5.5 x10-6/uL) 4.5 (Ref Range: 4.5-5.5 x10-6/uL) RDW 14.0 (Ref Range: 11-15 %) 13.5 (Ref Range: 11-15 %) 13.4 (Ref Range: 11-15 %) WBC 8.9 (Ref Range: 4.8-10.8 x10-3/uL) 7.6 (Ref Range: 4.8-10.8 x10-3/uL) 8.0 (Ref Range: 4.8-10.8 x10-3/uL) * Examination: ???General Examination: ?GENERAL APPEARANCE:?in no acute distress, well developed, well nourished.?HEAD:?normocephalic, atraumatic.?HEART:?no murmurs, regular rate and rhythm, S1, S2 normal.?LUNGS:?clear to auscultation bilaterally.?ABDOMEN:?normal, bowel sounds present, soft, nontender, nondistended.?PSYCH:?alert, oriented, cognitive function intact , good eye contact.? Assessment: * Assessment: 1.?Type 2 diabetes mellitus - E11.9 (Primary)?2.?Essential hypertension - I10?3.?Coronary artery disease involving [place] coronary artery of [place] heart without angina pectoris - I25.10?4.?Benign prostatic hyperplasia with lower urinary tract symptoms - N40.1?5.?Erectile dysfunction - N52.9?6.?Pulmonary nodule - R91.1?7.?Hand pain, left - M79.642, 07/12/23 Wears wrist braces at night?8.?Rheumatoid arthritis - M06.9, 07/12/23 Diagnosed 25 yrs ago Never treated Saw Dr Santiago and now put on Methotrexate 2.5 mg 6 tablets every wednesday? Plan: * Treatment: * Procedure Codes:? * Follow Up:?6 Months * Billing Information: * Visit Code:? 78443 Office Visit, Est Pt., Level 4. * Procedure Codes:? * Sign off status: Completed true * Provider:?Sunil Hawthorne MD Date:?2022 Generated for Zoraida garces/Adela/Edd on:?12/26/2024 11:29 AM EST History and Physical Notes * HPI (History of Present Illness) Category Sub-Category Detail Notes Category Not es New/Follow-up Patient Consult 07/12/23 Seen after [address] uLke Santiago [facility]. Saw him three times , last wednesday. Put on Methotrexate 2.5 mg Started on 4 tablets once a week on Saturdays and now 6 tablets Also Folic Acid 1 mg daily, Hant noticed any improvement in his wrist pain He wears 2 braces on the left wrist at night and one on right wrist. Scheduled for echo after 3 days with gas turbine assembler Dr Landon . Meds reviewed . No new complaints today. His sister of Covid in Nov 2022 in [place] Drove over there in February for the . Has 4 children 01/08/23 Medications reviewed and reconciled Saw Dr Hawthorne wanted to go to her Dr Petrona sanz, they did xrays, EMG testing. She said no carpel tunnel. she did surgery in both hands and removed bone and helped. Has a pinhole in side of left hand, dr petrona sanz recommend engineer specialist. Used to see Dr Toscano a long time ago. he is moving to [place] so will refer to [facility] treatment [facility]. (Jerry drake, Jack) Since august watches food intake, stopped cupcakes, pastries. nothing with more then [address] lung screening normal, no change Aortic aneurysm screening negative Going in june for echo and to follow up with cardiology 10/12/22 67 yr old male, seeing Ayaka for past 2 years. States he is in excellent health and hikes and uses treadmill every morning for 30 minutes at 3mph. Has 2 stents in his heart. Lived in [facility] for 54 yrs. Moved to [place] at [place] for 5 years and then moved back to [place] 10 years ago because of his GF. Lives with her 23 years . 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 with 2 sons Murray 7 yr and Paul 11 yrs . Keeps in touch Lives in [facility] in [place]. ([phone]) . Carine has 2 children Margaret Angel 33 yr Special needs Lives with them [place]. Graduated from [employer]. Prasanna Angel 28 yr works for [employer] in [place] Single Lives with father in . Living in [facility] for 23 years .He sold his [employer] [place] [employer] in [place] 15 years $1.1 million. Meds reviewed and reconciled Former smoker. Stopped 2015 Customer Service Trainer is Dr Meek Saw him early this year Once a year. Sees eye doctor every 2 years. Sharon started him on Tamsulosin a month ago and fels improvement in his urination. Hobbies , Travelling in his car a month at a tiime without a destination [facility] Of [place] last year. Visted his siter in [facility] last February 2022. Comes today for evaluation of hand swelling and numbness which started last Woke up and coulldnt open his hands Its beter but still stiff . Never happened before. Examination Category Sub-Category Detail Notes Category Not es General Examination GENERAL APPEARANCE: in no ac carey distress, well developed, well nourished HEAD: normocephalic, atrau matic HEART: no murmurs, regular rate and rhythm, S1, S2 normal LUNGS: clear to auscultatio n bilaterally ABDOMEN: normal, bowel sounds present, soft, nontender, nondistended PSYCH: alert, oriented , co gnitive function intact , good eye contact
--- OUTSIDE RECORDS SUMMARY | 2024-12-26 11:30 | XMS_ITS | Clinical Summary ---
Author Organization [facility] Address [address] [place] [address] Phone Care Team Providers Care Datapower Developer Name Role Phone Jennifer Quiroz MD Primary Care Prov ider Allergies Active Allergy Reactions Criticality Noted Date Comments Codeine Headache 09/09/2021 Medications tamsulosin (FLOMAX) 0.4 mg 24 hr capsule TAKE 1 CAPSULE BY MOUTH EVERY DAY 30 MINUTES AFTER THE SAME MEAL 90 capsule 09/29/2024 Active ascorbic acid (VITAMIN C) 500 mg tablet Take 1 tablet (500 mg total) by mouth 1 (one) time each day. Active aspirin 81 mg EC tablet Take 1 tablet (81 mg total) by mouth 1 (one) time. Active atorvastatin (LIPITOR) 80 mg tablet Take 80 mg by mouth daily. Active budesonide-form oteroL (SYMBICORT) 160-4.5 mcg/actuation inhaler Inhale 2 puffs by mouth 2 (two) times a day. Active folic acid (FOLVITE) 1 mg tablet Take 1 tablet (1,000 mcg total) by mouth 1 (one) time each day. 12/22/2023 Active lisinopriL (PRINIVIL,ZESTR IL) 20 mg tablet Take 1 tablet (20 mg total) by mouth 1 (one) time each day. Active methotrexate 2.5 mg tablet TAKE 6 TABLETS BY MOUTH ONCE WEEKLY ON Wednesday12/05/2023 Active naproxen sodium (ALEVE ORAL) Take by mouth. Active cyanocobalamin (VITAMIN B-12) 1,000 mcg tablet Take 1 tablet (1,000 mcg total) by mouth 1 (one) time each day. Active Active Problems Problem Noted Date Diagnosed Date Pulmonary emphysema 01/04/2024 Essential hypertension 01/04/2024 HLD (hyperlipidemia) 01/04/2024 Enlarged prostate without lo wer urinary tract symptoms (luts) 01/04/2024 Rheumatoid arthritis 01/04/2024 CAD (coronary atherosclerotic disease) 6 Overview (10/13/2024): with stents Encounters Date Type Department Care Team Description 09/29/2024 Telephone Lung Screening Program - [address] [id number] Tiny Marcelino [place] Appointment (1st notification) from Last 3 Months Immunizations Name Administration Dates Next Due COVID-19 (Pfizer/Comirnaty) 12yo and older 07/27/2023 Influenza trivalent, 0.5mL ( Fluad) 65yo and older 07/27/2023,07/17/2022,07/25/2021,07/30 Influenza trivalent, 0.5mL, preservative free (Fluarix; FluLaval; Fluzone) ages 6mo and older (Afluria) 3 years and older 09/06/2017,09/08/2016,09/01/2013,08/10 Influenza, Unspecified 07/27/2023 Pneumococcal conjugate 13 va lent (Prevnar 13, PCV13) 2mo and older 05/25/2019 Pneumococcal polysaccharide 23 valent (Pneumovax 23) 2yo and older 03/14/2013 Respiratory syncytial virus (RSV), unspecified 09/10/2023 Td Tetanus diptheria (Tdvax) 7yo and older 05/15/2019 Tdap Tetanus diptheria acell ular pertussis (Boostrix; Adacel) 7yo and older 2008 Zoster Live 05/13/2015 Surgical History Surgery Date Site/Laterality Comments ANGIOPLASTY 10/12/2016 PROCEDURE: HISTORICAL ANGIOPLASTY W/STENT; COMMENT: Circumflex 99% occlusion HERNIA REPAIR 2004 N/A PROCEDURE: HISTORICAL HERNIA REPAIR/UMB; COMMENT: with mesh WRIST SURGERY 2016 Bilateral PROCEDURE: HISTORICAL WRIST SURGERY; COMMENT: bone removal Medical History Medical History Date Comments CAD (coronary atherosclerotic disease) 2015 DX:CAD (coronary atherosclerotic disease); COMMENT: with stents Pulmonary emphysema (CMS/HCC) DX :Pulmonary emphysema (HCC) History of elevated glucose DX:H istory of elevated glucose HTN (hypertension) DX:HTN (hyper tension) HLD (hyperlipidemia) DX:HLD (hyp erlipidemia) Enlarged prostate without lo wer urinary tract symptoms (luts) DX:Enlarged prostate without lower urinary tract symptoms (luts) Rheumatoid arthritis (CMS/HCC) D X:Rheumatoid arthritis (HCC) Family History Medical History Relation Name Comments No Known Problems Daughter Coronary artery disease Father Heart attack Father Other: History of polio Father Other cancer Mother Arthritis Sister 1 Hypertension Sister 1 Hypertension Sister 2 February Other: COVID-19 Sister 2 February Breast cancer Neg Hx Colon cancer Neg Hx Diabetes Neg Hx Prostate cancer Neg Hx Relation Name Status Comments Daughter Alive Father Maternal Grandfather Maternal Grandmother Mother (Age 63) Cancer Paternal Grandfather Paternal Grandmother Sister 1 Alive Sister 2 February Social History Tobacco Use Types Packs/Day Years Used Date Smoking Tobacco: Former Cigarettes Q uit: 10/25/2014 Smokeless Tobacco: Never Alcohol Use Standard Drinks/Week Comments Yes 0 (1 standard drink = 0.6 oz pur e alcohol) Sex and Gender Information Value Date Recorded Sex Assigned at Not on file Legal Sex Male 4:58 PM EST Gender Identity Not on file Sexual Orientation Not on file Obstetrics History Last Filed Vital Signs Vital Sign Reading Time Taken Comments Blood Pressure 122/56 01/04/2024 1:49 PM EDT Pulse 54 01/04/2024 1:49 PM EDT Temperature - - Respiratory Rate - - Oxygen Saturation - - Inhaled Oxygen Concentration - - Weight 74.9 kg (165 lb 3.2 oz) 01/04/2024 1:49 P M EDT Height - - Body Mass Index - - Plan of Treatment Health Maintenance Due Date Last Done Comments RSV Immunization Patients 60+ Years Old (1 - Risk 60-74 years 1-dose series) 2013 09/10/2023 Zoster Vaccines (2 of 3) 07/08/2015 05/13/2015 Hepatitis C Screening 09/23/2022 Medicare Annual Wellness Visit 09/23/2022 Social Influencers of Health Screening 09/23/2022 Pneumococcal Vaccine: 50+ Years (3 of 3 - PCV20 or PCV21) 05/25/2024 05/25/2019, 03/14/2013 COVID-19 Vaccine ( season) 2024 07/27/2023, 07/27/2023, 09/28/2022, Additional history exists Influenza Vaccine (#1) 2024 , 07/27/2023, 07/17/2022, Additional history exists Lung Cancer Screening (Low Dose CT) 10/11/2024 10/11/2023, 09/25/2022, 09/24/2021 Depression Screening 01/03/2025 01/04/2024 Falls Risk Assessment 01/03/2025 01/04/2024 Hypertension/CHF/CAD Annual BMP Blood Test 01/04/2025 01/05/2024 Cholesterol Screening (Lipid Panel) 01/04/2029 01/05/2024 DTaP,Tdap,and Td Vaccines (3 - Td or Tdap) 05/15/2029 05/15/2019, 2008 Colorectal Cancer Screening: Colonoscopy 09/14/2029 09/14/2019 RSV Immunization Patients Under 20 months Aged Out 09/10/2023 No longer eligible based on patient's age to complete this topic Abdominal Aortic Aneurysm (AAA) Screen Completed 02/03/2024, 02/03/2024, 02/03/2024, Additional history exists HIB Vaccines Aged Out No longer eligi ble based on patient's age to complete this topic HPV Vaccines Aged Out No longer eligi ble based on patient's age to complete this topic Hepatitis A Vaccines Aged Out No long er eligible based on patient's age to complete this topic Hepatitis B Vaccines Aged Out No long er eligible based on patient's age to complete this topic IPV Vaccines Aged Out No longer eligi ble based on patient's age to complete this topic MMR Vaccines Aged Out No longer eligi ble based on patient's age to complete this topic Meningococcal ACWY Vaccine Aged Out N o longer eligible based on patient's age to complete this topic Meningococcal B Vacine Aged Out No lo nger eligible based on patient's age to complete this topic Varicella Vaccines Aged Out No longer eligible based on patient's age to complete this topic Procedures Procedure Name Priority Date/Time Associated Diagnosis Comments US ABDOMINAL AORTA REAL TIME SCREEN STUDY AAA Routine 02/03/2024 9:26 AM EDT Personal history of nicotine dependence ANNUAL BMP BLOOD TEST Routine 01/05/2024 LIPID PANEL Routine 01/05/2024 DEPRESSION SCREENING Routine 01/04/2024 FALLS RISK ASSESSMENT Routine 01/04/2024 CT LUNG SCREENING LOW DOSE Routine 10/11/2023 4:23 AM EST Encounter for screening for malignant neoplasm of respiratory organs COLONOSCOPY Routine 09/14/2019 from Last 3 Months or Most Recently Relevant to Health Maintenance Results * US ABDOMINAL AORTA REAL TIME SCREEN STUDY AAA (02/03/2024 9:26 AM EDT) Anatomical Region Laterality Modality Ultrasound 01/04/2024 2:26 PM EDT Narrative 02/03/2024 10:36 AM EDT US ABDOMINAL AORTA REAL TIME SCREEN STUDY AAA ABDOMINAL AORTA SCREENING ULTRASOUND History: ??Former smoker. Comparison: None. FINDINGS: ??The proximal aorta measures 2.5 cm in diameter. The mid aorta measures 1.8 cm in diameter. The distal aorta measures 1.4 cm in diameter. No periaortic fluid collection is seen. The aortic bifurcation is normal in appearance. The proximal bilateral common iliac arteries are normal in caliber. IMPRESSION: IMPRESSION: No visualized abdominal aortic aneurysm. Procedure Note Jazmyn Patrick MD - 06/12/2024 US ABDOMINAL AORTA REAL TIME SCREEN STUDY AAA ABDOMINAL AORTA SCREENING ULTRASOUND History: Former smoker. Comparison: None. FINDINGS: The proximal aorta measures 2.5 cm in diameter. The mid aortameasures 1.8 cm in diameter. The distal aorta measures 1.4 cm in diameter. No periaortic fluid collection is seen. The aortic bifurcation is normalin appearance. The proximal bilateral common iliac arteries are normal in caliber. IMPRESSION: IMPRESSION: No visualized abdominal aortic aneurysm. us Chantel CARVALHO US PROCEDURES Final Result * Annual BMP Blood Test (01/05/2024) Pathologist [facility] Annual BMP Blood Test abstracted Historical Provider HEALTH MAINTENANCE Final Result * Lipid panel (01/05/2024) [facility] LDL/HDL Ratio 2 0 - 4 Triglycerides 82 0 - 150 mg/dL Cholesterol 118 0 - 200 mg/dL HDL 53 >=40 mg/dL LDL Cholesterol 49 0 - 100 mg/dL Blood Venous blood specimen / Unknown Historical Provider MD LAB BLOOD ORDERABLES Radha l Result * Falls Risk Assessment (01/04/2024) [facility] Falls Risk Assessment abstracted [facility] Provider HEALTH MAINTENANCE Final Result * Depression Screening (01/04/2024) [facility] Depression Screening abstracted [facility] Provider HEALTH MAINTENANCE Final Result * CT LUNG SCREENING LOW DOSE (10/11/2023 4:23 AM EST) Anatomical Region Laterality Modality Computed Tomogra phy 09/30/2023 7:43 AM EST Narrative 10/11/2023 4:23 AM EST [facility] Diagnostic Imaging Department [address] [place], [place] [id number] Patient: ??SEDRICK HOWE ?/Age/Sex: 1955 - 68 - M Unit#: ??[id number] ? Location/Status: ??SPDICATLS/REG CLI ? Mnemonic/Ordering Site: ??CTLUNGLD/SPCT Ordering Physician: ??TREVON DONATO MD CT Lung Screening Low Dose - 09/30/23 - [id number] Report Status:Signed Indication: Greater than 20 total pack-year smoking history, asymptomatic former smoker Technique: Low-dose CT scan of the chest obtained as a lung cancer screening study. Multiplanar reformatted images were obtained. ??Dose reduction technique: ASIR (Adaptive statistical iterative reconstruction) and/or AEC (automated exposure control) COMPARISON: September 2022. FINDINGS: Lack of intravenous contrast limits evaluation of the annabelle, vascular structures and visualized abdominal viscera. Lungs/airways: Trachea and central airways are patent. ??Bronchial wall thickening. ??Emphysematous changes. ??Lingular atelectasis. ??Biapical pleural- parenchymal scarring. Scattered sub-5 mm pulmonary nodules, similar to prior. Base of the neck, mediastinum, heart, chest wall, vessels: ??The assessment of hilar lymphadenopathy is difficult without the use of IV contrast. ??No enlarged mediastinal lymphadenopathy. ??Thoracic aortic and coronary artery calcifications. Upper abdomen: This study was performed without contrast and with lower than standard dose. These factors reduce the sensitivity for detection of small lesions in the upper abdomen. No significant abnormality is seen Bones/soft tissues: No suspicious osseous lesion IMPRESSION: No suspicious pulmonary nodules Lung RADS 2: Benign Appearance or Behavior - Continue annual screening with LDCT in 12 months. Dictating Physician: ??ALEX MALIN MD Electronically Signed by: ??ALEX MALIN MD Dic Date/Time: ??10/11/23 0419 Sign date/Time: ??10/11/23 0423 Procedure Note Alex Malin MD - 11/30/2023 [facility] Diagnostic Imaging Department [address] [place] [id number] Patient: SEDRICK HOWE /Age/Sex: 1955 - 68 - M Unit#: [id number] Location/Status: SPDICATLS/REG CLI Mnemonic/Ordering Site: [facility] Ordering Physician: TREVON DONATO MD CT Lung Screening Low Dose - 09/30/23 - [id number] Report Status:Signed Indication: Greater than 20 total pack-year smoking history,asymptomatic former smoker Technique: Low-dose CT scan of the chest obtained as a lung cancerscreening study. Multiplanar reformatted images were obtained. Dose reductiontechnique: ASIR (Adaptive statistical iterative reconstruction) and/or AEC(automated exposure control) COMPARISON: September 2022. FINDINGS: Lack of intravenous contrast limits evaluation of the annabelle,vascular structures and visualized abdominal viscera. Lungs/airways: Trachea and central airways are patent. Bronchial wall thickening. Emphysematous changes. Lingular atelectasis. Biapicalpleural- parenchymal scarring. Scattered sub-5 mm pulmonary nodules, similar to prior. Base of the neck, mediastinum, heart, chest wall, vessels: The assessmentof hilar lymphadenopathy is difficult without the use of IV contrast. Noenlarged mediastinal lymphadenopathy. Thoracic aortic and coronary artery calcifications. Upper abdomen: This study was performed without contrast and with lowerthan standard dose. These factors reduce the sensitivity for detection ofsmall lesions in the upper abdomen. No significant abnormality is seen Bones/soft tissues: No suspicious osseous lesion IMPRESSION: No suspicious pulmonary nodules Lung RADS 2: Benign Appearance or Behavior - Continue annual screeningwith LDCT in 12 months. Dictating Physician: ALEX MALIN MD Electronically Signed by: ALEX MALIN MD Dic Date/Time: 10/11/23 0419 Sign date/Time: 10/11/23 0423 Trevon Donato MD IMG CT PROCEDURES Final Result * Colonoscopy (09/14/2019) Colonoscopy no interpretation , abstracted Anatomical Region Laterality Modality Other Historical Provider HEALTH MAINTENANCE Final Result from Last 3 Months or Most Recently Relevant to Health Maintenance Insurance [employer] Care Teams Datapower Developer Relationship Specialty Start Date End Date Jennifer Quiroz MD [address] [place] [id number] PCP - General Internal Medicine 10/04/24
--- OUTSIDE RECORDS SUMMARY | 2024-12-26 11:30 | XMS_ITS | Patient Health Record ---
Author Organization [facility] Address [address] [place] [address] Care Team Providers Care Animal Damage Control Agent Name Role Phone DEANNE DIAS Primary Care Provider DEANNE DIAS Unavailable [phone] Allergies Allergen (clinical drug ingredient) Drug/Non Drug Allergy documented on EMR Reaction Allergy Type Onset Date Status codeine Codeine Headaches Drug Allergy Active Reason For Referral No Information Medications Medication SIG (Take, Route, Frequency, Duration) Notes Start Date End Date Status Ezetimibe 10 MG 1 tablet Orally Once a day for 30 day(s) Not-Taking Saw [place] 500 MG as directed Orally Not-Taking Tamsulosin HCl 0.4 MG TAKE 1 CAPSULE BY MOUTH EVERY DAY 30 MINUTES AFTER THE SAME MEAL for 90 Active Aspir-81 81 MG 1 tablet Orally Once a day for 90 Active Vitamin C 1000 MG as directed Orally Active Vitamin B-12 1000 MCG 1 tablet Orally On a day for 30 day(s) Active Sildenafil Citrate 100 MG 1 tablet as ne eded Orally Once a day for 90 days Active Methotrexate 2.5 MG as directed Orally 6 Tabs On Saturdays Active Atorvastatin Calcium 80 MG TAKE 1 TABLET BY MOUTH EVERY DAY for 90 days Active Folic Acid 1 MG 1 tablet Orally Once a day Active Lisinopril 20 MG TAKE 1 TABLET BY VALERIE TH EVERY DAY for 90 days Active Symbicort 160-4.5 MCG/ACT INHALE 2 PUFFS BY MOUTH TWICE DAILY for 90 days Active Immunizations Vaccine Route Administration Date Status Comme nts Zoster Unknown 05/13/2005 Administered Tdap Unknown 05/15/2019 Administered Pneumococcal polysaccharide PPV23 Unknown 03/14/2013 Administered Pneumococcal conjugate PCV 13 Unknown 05/15/2019 Administered Influenza (split), 3 yrs and above Unknown 07/25/2020 Administered Influenza (split), 3 yrs and above IM Intramuscular 07/25/2021 Administered Social History Tobacco Use: Social History Observation [...] 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. Swam in [place]. Worked at [employer] 19 years. 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 played alot of [employer]. Now does back country hiking 3-4 months a year. Travels through the country by car sightseeing. In relationship satya Hawk for 21 years. Was from first marriage Has 41 yo daughter, works in [facility] working for [employer], is the news producer for the [employer]. Lives in [place] but also has [employer] in [place] Has two grandsons. 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. Swam in [employer]. Worked at [employer] 19 years. 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 played alot of sotfball. Now does back country hiking 3-4 months a year. Travels through the country by car sightseeing. In relationship satya Hawk for 21 years. Was from first marriage Has 41 yo daughter, works in [facility] working for [employer], is the news producer for the show. Lives in [place] but also has [employer] in [place] Has two grandsons. 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. Swam in [facility]. Worked at [employer] [facility] [employer] 19 years. 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 played alot of sotfball. Now does back country hiking 3-4 months a year. Travels through the country by car sightseeing. In relationship satya Hawk for 21 years. Was from first marriage Has 41 yo daughter, works in [facility] working for [employer], is the news producer for the show. Lives in [place] but also has [employer] in [place] Has two grandsons. 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. Swam in [facility]. Worked at [employer] 19 years. 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 played alot of s[employer]fball. Now does back country hiking 3-4 months a year. Travels through the country by car sightseeing. In relationship satya Hawk for 21 years. Was from first marriage Has 41 yo daughter, works in [facility] working for [employer], is the news producer for the show. Lives in [place] but also has [employer] in [place] Has two grandsons. 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. Swam in [place]. Worked at [employer] [facility] [employer] 19 years. 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 played alot of sotfball. Now does back country hiking 3-4 months a year. Travels through the country by car sightseeing. In relationship satya Hawk for 21 years. Was from first marriage Has 41 yo daughter, works in [facility] working for [employer], is the news producer for the show. Lives in [place] but also has [employer] in [place] Has two grandsons. 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. Swam in [place]. Worked at [employer] [facility] [employer] [facility] [employer] 19 years. 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 played alot of sotfball. Now does back country hiking 3-4 months a year. Travels through the country by car sightseeing. In relationship satya Hawk for 21 years. Was from first marriage Has 41 yo daughter, works in [facility] working for [employer], is the news producer for the show. Lives in [place] but also has [employer] in [place] Has two grandsons. 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. Swam in [place]. Worked at [employer] [facility] [employer] [facility] [employer] 19 years. 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 played alot of s[employer]fball. Now does back country hiking 3-4 months a year. Travels through the country by car sightseeing. In relationship satya Hawk for 21 years. Was from first marriage Has 41 yo daughter, works in [facility] working for [employer], is the news producer for the show. Lives in [place] but also has [employer] in [place] Has two grandsons. 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. Swam in [place]. Worked at [employer] [facility] [employer] [facility] [employer] 19 years. 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 played alot of sotfball. Now does back country hiking 3-4 months a year. Travels through the country by car sightseeing. In relationship satya Hawk for 21 years. Was from first marriage Has 41 yo daughter, works in [facility] working for [employer], is the news producer for the show. Lives in [place] but also has [employer] in [place] Has two grandsons. 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. Swam in [place]. Worked at [employer] 19 years. 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 played alot of sotfball. Now does back country hiking 3-4 months a year. Travels through the country by car sightseeing. In relationship satya Hawk for 21 years. Was from first marriage Has 41 yo daughter, works in [facility] working for [employer], is the news producer for the show. Lives in [place] but also has [employer] in [place] Has two grandsons. 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. Swam in [place]. Worked at [employer] 19 years. 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 played alot of sotfball. Now does back country hiking 3-4 months a year. Travels through the country by car sightseeing. In relationship satya Hawk for 21 years. Was from first marriage Has 41 yo daughter, works in [facility] working for [employer], is the news producer for the show. Lives in [place] but also has [employer] in [place] Has two grandsons. 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. Swam in [place]. Worked at [employer] [facility] [employer] 19 years. 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 played alot of s[employer]fball. Now does back country hiking 3-4 months a year. Travels through the country by car sightseeing. In relationship satya Hawk for 21 years. Was from first marriage Has 41 yo daughter, works in [facility] working for [employer], is the news producer for the show. Lives in [place] but also has [employer] in [place] Has two grandsons. 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. Swam in [place]. Worked at [employer] [facility] [employer] 19 years. 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 played alot of sotfball. Now does back country hiking 3-4 months a year. Travels through the country by car sightseeing. In relationship wirico Hawk for 21 years. Was from first marriage Has 41 yo daughter, works in [facility] working for [employer], is the news producer for the show. Lives in [place] but also has [employer] in [place] Has two grandsons. Problems Problem Type SNOMED Code ICD Code Onset Dates Problem Status W/U Status Risk Notes Problem Mixed hyperlipidemia (394788838) Mixed hyperlipidemia (E78.2) Active confirmed Problem 63449284 Centrilobular emphysema (J43.2) Active confirmed moderate per low dose CT lung 06/2020 2 pulm nodules repeat 1 year. Not symptomatic. No cigs since 2002. FEV1 today 41% Taking symbicort inhaler once daily- urged to use bid. 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 began with a shivering sensation when exercising. Never had CP or SOB Had angioplasty and stent. Has been followed by Allen Morel MD in [facility]; in [address] Meek. On statin and bp med . No recent sx. Not associated with palp or SOB, CP. Mange lipds and bp. Problem Type 2 diabetes mellitus (44284097) Type 2 diabetes mellitus (E11.9) Active confirmed 10/12/22 A1 C 6.6 Lost 10 bs weight with diet restriction On no meds. Problem Rheumatoid arthritis (06534800) Rheumatoid arthritis (M06.9) Active confirmed Problem 98956027 Essential hypertension (I10) Active confirmed ekg nsr bp at goal. Problem 2282789196053 Benign prostatic hyperplasia with lower urinary tract symptoms (N40.1) Active confirmed discussed dx and meds. will try saw palmetto rather than rx meds. Problem 925862227 Pure hypercholesterol emia (E78.00) Active confirmed llabs reviewed with pt. cont lower fat diet, statin Problem Localized, primary osteoarthritis of the hand (137048265) Arthritis pain of hand (M19.049) Active confirmed 10/12/22 Had bilateral wrist surgery by Dr Viry Herzog in [place] I will send him back to her for evaluation May need EMG and NCV Problem 509274242 Primary osteoarthritis of both first carpometacarpal joints (M18.0) Active confirmed surgery at [facility] Problem 395298974 Elevated rheumatoid factor (R76.8) Active confirmed told in past RF was elevated but never persued eval Has multiple joints stiffness in morning. advised rheumatology eval. Problem hypercholesterolemi a (disorder) (23605126) Hypercholesterem ia (E78.00) Active confirmed Plan Of Treatment Pending Test Test Name Order Date Hemoglobin A1c 01/08/2023 Microalb/Creat Ratio, Randm Ur 3 Comp. Metabolic Panel (14) 01/08/2023 HEPATITIS C VIRUS SCREEN 09/10/2022 LIPID PANEL 11/30/2022 PSA, SCREEN 09/10/2022 Future Test Test Name Order Date CBC 11/01/2019 COMPREHENSIVE METABOLIC PANEL 11/01/2019 LIPID PROFILE 11/01/2019 RHEUMATOID FACTOR 11/01/2019 Insurance Providers Payer Name Payer Address Payer Phone Subscriber Number Group Number Insured Name Patient Relationship to Insured Coverage Start Date Coverage End Date [facility] [address] [place] [address] [id number] Jorge Delvalle Self - patient is the insured Medical (General) History Medical History History ICD Code CAD with stents 2015 let shoulder dislocation while in [place], [place] punchboard stuffer left testicle 2010 negative eval elevated LFT's decades ago. found due to high acetominophen doses lung nodules up to 4mm, unchanged on rep eat CT' smoked for 35 years 1 ppd , stopped 2015 Right sided sciatica . Not since he stop ped riding a bike 11 yrs ago. Surgical History Surgery Date(Month/Year) [facility] surgery for severe OA bilat. [facility] 2015 and 2018 angioplasty with stent Circumflex 99% oc clusion 10/12/2016 umbiilacat hernia repair with mesh Dr Elia blackwood, [facility] surgery 2004
== END 2024-12-26 09:53 | disposition home or self-care (01) ==
LOC: HO.HMGCX 09:52
PROVIDERS: PCP Family Medicine; Visit Provider Urology
DX: N40.1 Benign prostatic hyperplasia with lower urinary tract symptoms (principal); R33.9 Retention of urine, unspecified
CPT/HCPCS: 76770

== ENCOUNTER → 2024-12-26 09:56 | Outpatient (BNV) | payer OTHER, SELFPAY | PROVIDERS: PCP Family Medicine; Visit Provider Radiology Diagnostic Radiology | DX: N40.1 Benign prostatic hyperplasia with lower urinary tract symptoms (principal) | CPT/HCPCS: 76770 ==

== ENCOUNTER 2025-01-09 15:49 | Outpatient (AMB) | payer OTHER, SELFPAY ==
--- NOTE | 2025-01-09 15:56 | MHC.PC.OV ---
Vital Signs 01/09/25 15:59 Height 5 ft 10 in Weight 161 lb 6 oz BMI 23.2 BP 120/50 L Blood Pressure Location Lt brachial Position Sitting Respiration 14 Pulse 66 Pulse Source Pulse Oximeter Temp 98.4 F Temp Source Oral Pulse Oximetry (%) 94 Oxygen Delivery Method Room Air Intake Visit Reasons: CPE with f/u labs and health maint Intake Note: CPE with lab review Thiokol Operator Required: No Allergies codeine Allergy (Intermediate, Verified 01/09/25 15:57) Headache Medication List - Last Reconciled 01/09/25 by Paulie Her MD ascorbic acid (vitamin C) 1 g PO DAILY atorvastatin 80 mg PO DAILY 90 days budesonide-formoterol 160-4.5 mcg/actuation (Symbicort) 1 puff inhalation BID dutasteride (Avodart) 0.5 mg PO DAILY folic acid 1 mg PO DAILY lisinopril 20 mg PO DAILY 90 days methotrexate sodium 15 mg PO QWEEK tamsulosin 0.4 mg PO DAILY Tobacco use date assessed: 01/09/25 Fall risk assessment: No Falls in past year Last assessed Fall Risk: 01/09/25 Dental Screening Dental Screen Date: 09/12/24 Did you have a dental visit in the last 12 months?: No Did you have a dental problem in the last 6 months where you did not have access to dental care?: No Was dental information given to patient?: No HPI CPE with f/u labs and health maint HPI Details Patient?presents?for?complete?physical?exam Reviewed?labs?with?patient: Mild?anemia.??He?denies?any?blood?loss?or?blood?in?stools His?other?labs?are?okay No?new?complaints.??Patient?feels?well [facility] History Stented coronary artery Social History Housing: House Patient Tobacco Use Status: Former Tobacco user e-Cigarette/Vaping Use: Never Used service: No Current occupational status: retired Current occupational exposures/hazards: No Cognitive needs: No Hearing needs: No Vision needs: Yes Questionnaire PHQ-9 Over the last 2 weeks, how often have you been bothered by any of the following problems? 1. Little interest or pleasure in doing things: not at all 2. Feeling down, depressed, or hopeless: not at all 3. Trouble falling or staying asleep, or sleeping too much: not at all 4. Feeling tired or having little energy: not at all 5. Poor appetite or overeating: not at all 6. Feeling bad about yourself - or that you are a failure or have let yourself or your family down: not at all 7. Trouble concentrating on things, such as reading the newspaper or watching television: not at all 8. Moving or speaking so slowly that other people could have noticed. Or the opposite - being so fidgety or restless that you have been moving around a lot more than usual: not at all 9. Thoughts that you would be better off or of hurting yourself in some way: not at all Total score: 0 Depression Screening Interpretation: Negative Depression Screening Done: Yes 11224 - PHQ-9 Billing: Yes Source: Developed by Drs. Aba Larsen, Soraya Marcelino, Indra Duran and colleagues, with an educational lisette from [employer] Thrive Questionnaire Date Thrive assessed: 01/09/25 I am a: Patient What is your living situation today?: I have a steady place to live Within the past 12 months, did the food you bought not last and you didn't have the money to get more?: Never true Within the past 12 months, did you worry whether your food would run out before you got money to buy more?: Never true Do you have trouble paying for medicines?: No Do you have trouble getting transportation to medical appointments?: No Do you have trouble paying your heating and electricity bill?: No Do you have trouble taking care of your child, family member or friend?: No Do you have trouble with day-to-day activities such as bathing, preparing meals, shopping, managing finances, etc.?: No Are you currently unemployed and looking for a job?: No Are you interested in more education?: No Please select the resources that you would like help with: None Currently or been in a relationship where the following occur: I choose not to answer THRIVE Score: 0 AUDIT C Alcohol Use Questionnaire (AUDIT-C) 1. How often do you have a drink containing alcohol?: Never 2. How many drinks containing alcohol do you have on a typical day when you are drinking?: 1 or 2 3. How often do you have six or more drinks on one occasion?: Never Total Score: 0 Score Reviewed/Action Taken: Yes OTONIEL-7 AMB Questionnaire OTONIEL-7 Date OTONIEL - 7 assessed: 01/09/25 Feeling nervous, anxious, or on edge: 0 = Not at all Not being able to stop or control worryin = Not at all Worrying too much about different things: 0 = Not at all Trouble relaxin = Not at all Being so restless that it is hard to sit still: 0 = Not at all Becoming easily annoyed or irritable: 0 = Not at all Feeling afraid as if something awful might happen: 0 = Not at all Total OTONIEL-7 score (0-4 normal; 5-9 mild; 10-14 moderate; 15-21 severe): 0 Source: Developed by Drs. Aba Larsen, Soraya Marcelino, Indra Duran and colleagues, with an educational lisette from [employer]. OTONIEL-7 Assessment Billing OTONIEL-7 Assessment Tool: OTONIEL-7 Assessment 91997 Review of Systems Const Denies chills, Denies fatigue, Denies fever(s), Denies headache(s) and Denies weakness Eyes Denies change in vision ENT Denies dizziness, Denies headache(s), Denies hearing loss, Denies nasal congestion, Denies sinus pain, Denies sinus pressure and Denies sore throat Card Denies chest pain, Denies lightheadedness, Denies dyspnea and Denies other (palpitations) Resp Denies cough, Denies dyspnea and Denies wheezing GI Denies abdominal pain, Denies melena, Denies hematochezia, Denies change in bowel habits, Denies dyspepsia and Denies nausea Denies hematuria and Denies dysuria Musc Denies abnormal gait, Denies myalgias, Denies arthralgias, Denies numbness and Denies tingling Skin/Breast Denies rash, Denies unusual bruising and Denies wounds Neuro Denies abnormal gait, Denies dizziness, Denies headache(s), Denies memory loss, Denies numbness, Denies Sensory deficit (Neuro), Denies tingling and Denies weakness Psych Denies anxiety, Denies depression and Denies memory loss Endo Denies cold intolerance, Denies fatigue, Denies heat intolerance, Denies polydipsia and Denies polyuria Randell/Lymph Denies easy bleeding and Denies easy bruising Aller/Immun Denies wheezing Physical exam (Primary Care) Vital Signs: Last Vital Signs Temp 98.4 F 01/09/25 15:59 Pulse 66 01/09/25 15:59 Resp 14 01/09/25 15:59 BP 120/50 L 01/09/25 15:59 Pulse Ox 94 01/09/25 15:59 Oxygen Delivery Method Room Air 01/09/25 15:59 BMI result Body Mass Index 23.2 Tobacco/Smoking Status: Tobacco use Status Tobacco use date assessed 01/09/25 01/09/25 16:03 Patient Tobacco Use Status Former Tobacco user 01/09/25 15:56 e-Cigarette/Vaping Use Never Used 01/09/25 15:56 PHQ-9: PHQ-9 Score PHQ-9: Total score 0 01/09/25 16:03 Depression Screening Interpretation: Negative Thrive Assessment: Date of Thrive Assessment Date Thrive assessed 01/09/25 01/09/25 16:03 Currently or been in a relationship where the following occur: I choose not to answer Const General: no acute distress, well developed, alert and awake Nutritional Appearance: well nourished Orientation/consciousness: patient oriented x3 HENMT Head: Yes normocephalic and Yes atraumatic Ears: hearing grossly normal bilaterally and TM's normal bilaterally General nose exam: Normal external nose present and Normal nares present Mouth: Normal oral and palatal mucosa present and moist mucous membranes Teeth and gingiva: poor dentition Throat: Yes posterior oropharynx normal Eyes Pupils: Equal, round and reactive pupils present and Pupil accommodation reflex normal EOM: EOMs intact bilaterally Neck Neck: Yes normal visual inspection, Yes no lymphadenopathy and Yes trachea midline Thyroid: Thyroid normal Carotids: no bruits Lymphatic: no lymphadenopathy noted Chest Chest palpation & inspection: normal inspection of the chest Resp Effort & Inspection: normal respiratory effort Auscultation: clear to auscultation bilaterally Cardio Rate: regular rate Rhythm: regular rhythm Heart sounds: S1 normal heart sound present, S2 normal heart sound present, no gallops, no murmurs and no rubs Bruits: no abdominal aortic bruits and no carotid bruits GI Palpation (GI): No Abdominal aortic bruit present, Soft to palpation, nontender, No hepatosplenomegaly present and No Rebound tenderness present Auscultation: normal bowel sounds General: Yes no CVA tenderness Back/Spine/Pelvis Back: no CVA tenderness Cervical Spine: cervical ROM normal and No Cervical spine tenderness Thoracic/Lumbar Spine: thoraco-lumbar ROM normal, No pain with thoraco-lumbar ROM, No thoracic spinal tenderness and No lumbar spinal tenderness Skin Lesions: no lesions Rashes: no rashes Trauma: no lacerations or abrasions Wounds: no wounds Nails: normal Neuro General: patient oriented x3, gait normal and CN's II-XI intact bilaterally Cranial nerves: Yes Equal, round and reactive pupils present Cognition (Neuro): normal cognition Gait exam (Neuro): Normal gait present Motor exam (neuro): 5/5 motor strength present throughout Sensory Exam: No Sensory deficit (Neuro) Deep tendon reflexes (DTR's): Right patellar reflex intensity grade: 2+ and Left patellar reflex intensity grade: 2+ Extrem General: Yes normal to inspection and No edema Psych Appearance: grossly normal Affect: normal affect Attitude: cooperative Thought process: Normal thought process present Coding Level of Care Code Est Pt Prev Care >65y(80039) Diagnoses Adult general medical exam Z00.00 Mild anemia D64.9 Hypertension I10 CAD (coronary artery disease) I25.10 Poor dentition K08.9 Smoker F17.200 Screening for prostate cancer Z12.5 Screening for colon cancer Z12.11 Elevated fasting blood sugar R73.01 Additional Codes OTONIEL-7 Assessment Billing - OTONIEL-7 Assessment Tool: OTONIEL-7 Assessment 21326 ([id number]) PHQ-9 - 72305 - PHQ-9 Billing: Yes ([id number]) Assessment & Plan Assessment & Plan (1) Adult general medical exam: Code(s): Z00.00 - Encounter for general adult medical examination without abnormal findings Category: Medical Plan: 69-year-old?male?presents?for?complete?physical?exam Encouraged?healthy?diet?with?active?lifestyle?and?plenty?of?exercise (2) Mild anemia: Code(s): D64.9 - Anemia, unspecified Category: Medical Plan: Mild?anemia Denies?any?bleeding?or?blood?in?stools Will?repeat?with?next?blood?draw?and?discussed?with?patient (3) Hypertension: Code(s): I10 - Essential (primary) hypertension Category: Medical Plan: Blood?pressure?is?controlled.??Goal?is?less?than?130/80 Continue?current?medication (4) CAD (coronary artery disease): Code(s): I25.10 - Atherosclerotic heart disease of [place] coronary artery without angina pectoris Category: Medical Plan: History?of?coronary?artery?disease?and?stent Followed?by?Dr. Meek He?is?on?atorvastatin?80?mg?daily Stable Follow-up?with?Cardiology?as?recommended (5) Poor dentition: Code(s): K08.9 - Disorder of teeth and supporting structures, unspecified Category: Medical Plan: Recommended?follow-up?with?a?dentist. (6) Smoker: Code(s): F17.200 - Nicotine dependence, unspecified, uncomplicated Category: Social Hx Plan: History?of?smoking?and?I?had?referred?him?for?lung?cancer?screening?by?low-dose?CT He?says?he?has?not?been?contacted Will?have?the?office?try?to?get?him?scheduled. (7) Screening for prostate cancer: Code(s): Z12.5 - Encounter for screening for malignant neoplasm of prostate Category: Medical Plan: PSA?is?within?normal?limits He?does?have?some?urinary?symptoms?and?BPH He?is?followed?by?Urology?and?has?appointment?to?review?retroperitoneal?ultrasound He?is?on?Avodart?and?Flomax. Follow-up?with?urology?as?recommended (8) Screening for colon cancer: Code(s): Z12.11 - Encounter for screening for malignant neoplasm of colon Category: Medical Plan: Patient?says?he?had?his?last?colonoscopy?almost?10?years?ago. Referred?to?Gastroenterology (9) Elevated fasting blood sugar: Code(s): R73.01 - Impaired fasting glucose Category: Medical Plan: History?of?elevated?fasting?blood?sugars.??Patient?has?lost?significant?amounts?of?weight Will?recheck?A1c?with?next?blood?draw Orders: Orders Lipid Panel Today I25.10 - Atherosclerotic heart disease of [place] coronary artery without angina pectoris, Z00.00 - Encounter for general adult medical examination without abnormal findings Vitamin B12 and Folate Today D64.9 - Anemia, unspecified, E53.8 - Deficiency of other specified B group vitamins Reticulocyte Count Today D64.9 - Anemia, unspecified Complete Blood Count Auto Diff Today D64.9 - Anemia, unspecified, Z00.00 - Encounter for general adult medical examination without abnormal findings Hemoglobin A1c Today R73.01 - Impaired fasting glucose Comprehensive [place]. Panel Fast Today R73.01 - Impaired fasting glucose, Z00.00 - Encounter for general adult medical examination without abnormal findings IRON PROFILE Today D64.9 - Anemia, unspecified Ferritin Today D64.9 - Anemia, unspecified Referrals Lung Cancer Screening Referral F17.200 - Nicotine dependence, unspecified, uncomplicated Gastroenterology Referral D64.9 - Anemia, unspecified, Z12.11 - Encounter for screening for malignant neoplasm of colon
[2025-01-09 15:59] VITALS: BP 120/50; PULSE 66; RESP 14; TEMP 36.9; O2SAT 94; BMI 23.2
--- OUTSIDE RECORDS SUMMARY | 2025-01-09 18:35 | XMS_ITS ---
Author Organization [facility] Address [address] [place] [address] Care Team Providers Care Dressing Machine Operator Name Role Phone DEANNE DIAS Primary Care Provider [phone] DEANNE DIAS Unavailable [phone] REASON FOR VISIT refills Medications Medication SIG (Take, Route, Frequency, Duration) Notes Start Date End Date Status Atorvastatin Calcium 80 MG TAKE 1 TABLET BY MOUTH EVERY DAY for 90 days Active Lisinopril 20 MG TAKE 1 TABLET BY VALERIE TH EVERY DAY for 90 days Active Symbicort 160-4.5 MCG/ACT INHALE 2 PUFFS BY MOUTH TWICE DAILY for 90 days Active Encounters Encounter Location Date Provider Diagnosis [facility] [address] [facility] [address] [place] [address] 09/20/2023 DEANNE DIAS Plan Of Treatment Medication Medication Name Sig Start Date Stop Date Notes Atorvastatin Calcium 80 MG TAKE 1 TABLET BY MOUTH EVERY DAY for 90 days Lisinopril 20 MG TAKE 1 TABLET BY VALERIE TH EVERY DAY for 90 days Symbicort 160-4.5 MCG/ACT INHALE 2 PUFFS BY MOUTH TWICE DAILY for 90 days Progress Notes * Jorge DELVALLEDOB:1955 (68 yo M)Acc No.[id number]:09/20/2023 Patient:?Jorge Delvalle :1955???Age:68 Y???Sex:Male Address:[address] [place] [address], [address] * Refills? Refill Atorvastatin Calcium Tablet, 80 MG, 90, TAKE 1 TABLET BY MOUTH EVERY DAY, 90 days, Refills=3 Refill Symbicort Aerosol, 160-4.5 MCG/ACT, 3, INHALE 2 PUFFS BY MOUTH TWICE DAILY, 90 days, Refills=3 Refill Lisinopril Tablet, 20 MG, 90, TAKE 1 TABLET BY MOUTH EVERY DAY, 90 days, Refills=3 * true * Date:? Generated for Zoraida garces/Adela/Jackieitting on:?01/09/2025 06:35 PM EDT
--- OUTSIDE RECORDS SUMMARY | 2025-01-09 18:35 | XMS_ITS ---
Author Organization [facility] Address [address] [place] [address] Care Team Providers Care Rn Urgent Care Name Role Phone DEANNE DIAS Primary Care Provider [phone] DEANNE DIAS Unavailable [phone] REASON FOR VISIT Patient Transferred Out Encounters Encounter Location Date Provider Diagnosis [facility] [address] [place] [address] 09/20/2023 DEANNE DIAS Plan Of Treatment No Information Progress Notes * Jorge DELVALLEDOB:1955 (68 yo M)Acc No.[id number]:09/20/2023 Patient:?MookJorge ritter :1955???Age:68 Y???Sex:Male Address:[address] [place] [address], [address] * true * Date:? Generated for Printi ng/Enriquetag/eTransmitting on:?01/09/2025 06:34 PM EDT
--- OUTSIDE RECORDS SUMMARY | 2025-01-09 18:35 | XMS_ITS | Clinical Summary ---
Author Organization [facility] Address [address] [place] [address] Phone Care Team Providers Care Manager Contract Name Role Phone Jennifer Quiroz MD Primary [...] atherosclerotic disease) 6 Overview (10/13/2024): with stents Immunizations Name Administration Dates Next Due COVID-19 [...] IMPRESSION: IMPRESSION: No visualized abdominal aortic aneurysm. Chantel CARVALHO US PROCEDURES Final Result * Annual BMP Blood Test (01/05/2024) Annual BMP Blood Test abstracted Historical Provider HEALTH MAINTENANCE Final Result * Lipid panel (01/05/2024) LDL/HDL Ratio 2 0 - 4 Triglycerides 82 0 - 150 mg/dL Cholesterol 118 0 - 200 mg/dL HDL 53 >=40 mg/dL LDL Cholesterol 49 0 - 100 mg/dL Blood Venous blood specimen / Unknown Historical Provider LAB BLOOD ORDERABLES Radha l Result * Falls Risk Assessment (01/04/2024) Falls Risk Assessment abstracted Historical Provider MD HEALTH MAINTENANCE Final Result * Depression Screening (01/04/2024) Depression Screening abstracted Historical Provider HEALTH MAINTENANCE Final Result * CT LUNG SCREENING LOW DOSE (10/11/2023 4:23 AM EST) Anatomical Region Laterality Modality Computed Tomogra phy 09/30/2023 7:43 AM EST Narrative 10/11/2023 4:23 AM EST [facility] Diagnostic Imaging Department [address] [place] [address] Patient: ??SEDRICK HOWE ?/Age/Sex: 1955 - 68 - M Unit#: ??[id number] ? Location/Status: ??SPDICATLS/REG CLI ? Mnemonic/Ordering Site: ??CTLUNGLD/SPCT Ordering Physician: ??TREVON DONATO MD CT Lung Screening Low Dose - 09/30/2324 Report Status:Signed Indication: Greater than 20 total [...] MD Dic Date/Time: ??10/11/23 0419 Sign date/Time: ??10/11/23422 Procedure Note Alex Malin MD - 11/30/2023 [facility] Diagnostic Imaging Department [address] [place] [address] Patient: SEDRICK HOWE./Age/Sex: 1955 - 68 - M Unit#: [id number] Location/Status: SPDICATLS/REG CLI Mnemonic/Ordering Site: [facility] Ordering Physician: TREVON DONATO MD CT Lung Screening Low Dose - 09/30/23 - 47 Report Status:Signed Indication: Greater than 20 total [...] Signed by: ALEX MALIN MD Dic Date/Time: 10/11/23418 Sign date/Time: 10/11/23422 Trevon Donato MD IM CT PROCEDURES Final Result * Colonoscopy (09/14/2019) Colonoscopy no interpretation , abstracted Anatomical Region Laterality Modality Other us Historical Provider HEALTH MAINTENANCE Final Result from Last 3 Months or Most Recently Relevant to Health Maintenance Insurance [employer] Care Teams Manager Contract Relationship Specialty Start Date End Date Jennifer Quiroz MD [address] [place] [address] PCP - General Internal Medicine 10/04/24
--- OUTSIDE RECORDS SUMMARY | 2025-01-09 18:35 | XMS_ITS ---
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 Swam in [facility]. Worked at [employer] 19 years. 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 played alot of [employer]. Now does back country hiking 3-4 months a year. Travels through the country by car sightseeing. In relationship satya Hawk for 21 years. 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 Lives in [place] but also has [employer] in [place] Has two grandsons. Problems Problem Type SNOMED Code ICD Code Onset Dates Problem Status W/U Status Risk Notes Problem Rheumatoid arthritis (03097319) Rheumatoid arthritis (M06.9) Active confirmed Vital Signs Temperature 98.5 degrees Fahrenheit 07/12/20 23 Blood pressure systolic 124 mm Hg 07/12/20 23 Blood pressure diastolic 62 mm Hg 023 Heart Rate 74 /min 07/12/2023 Height 70 in 07/12/2023 Weight 163 lbs 07/12/2023 BMI 23.39 kg/m2 07/12/2023 Oximetry 96 % 07/12/2023 Encounters Encounter Location Date Provider Diagnosis [address] [place] [address] 07/12/2023 SUNIL HAWTHORNE Type 2 diabetes mellitus E11.9 ; Essential hypertension I10 ; Coronary artery disease involving omaha coronary artery of omaha heart without angina pectoris I25.10 ; Benign [...] - I10) 07/12/2023 Coronary artery disease involving omaha coronary artery of omaha heart without angina pectoris (ICD-10 - I25.10) [...] Notes * Jorge DELVALLEDOB:1955 (67 yo M)Acc No.[id number]:07/12/2023 Progress Notes Patient:?Jorge Delvalle Provider:?Sunil Hawthorne MD :1955???Age:67 Y???Sex:Male Jose e:07/12/2023 Address:[address] [place], [place] [id number] Pcp:AYAKA Oneal Subjective: * Chief Complaints: * [...] Scheduled for echo after [address] Landon . Meds reviewed . No new complaints today. His sister of Covid in Nov 2022 in [place] Drove over there in February for the . Has 4 children ?01/08/23 Medications reviewed and reconciled ?Saw Dr Hawthorne wanted to go to her Dr Petrona sanz, they did xrays, EMG testing. She said no carpel tunnel. she did surgery in both hands and removed bone and helped. ?Has a pinhole in side of left hand, dr petrona sanz recommend retail experience specialist. Used to see Dr Toscano a long time ago. he is moving to [place] so will refer to arthritis treatment center. [...] treadmill every morning for 30 minutes at [facility]. Has 2 stents in his heart. Lived in [facility] for 54 yrs. Moved to [place] at [place] for 5 years and then moved back to [place] 10 years ago because of his GF. Lives with her 23 years . Carine Harvey 54 yr Works at [employer] in [place] for 30 yrs He was for 12 yrs and has a daughter Yumi Delvalle 43 yr Director of [employer] in [facility]. with 2 sons Murray 7 yr and Paul 11 yrs . Keeps in touch Lives in [place] in [place]. ([phone]) . Carine has 2 children Margaret Angel 33 yr Special needs Lives with them [place]. Graduated from College. 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 ?Meds reviewed and reconciled Former smoker. Stopped [address] Dr Meek Saw him early this year Once a year. Sees eye doctor every 2 years. Sharon started him on Tamsulosin a month ago and fels improvement in his urination. ?Hobbies , Travelling in his car a month at a tiime without a destination Went to [facility] last year. Visted his siter in [facility] last February 2022. ? Comes today for [...] 10/12/2016umbiilacat hernia repair with mesh Dr Flores, [facility] surgery 2004 * Hospitalization/Major Diagno stic Procedure:? * Family History:?Father: dece ased 78 yrs, of CAD, had polio in use, severe back problems, diagnosed with Unspecified heart disease.?Mother: 63 yrs, cancer.? 2 sisters One lives in [place] and one lives in [place] Hypertension. younger sister had stomach problems for [...] use: smoke detectors, carbon monoxide detector. ?[facility]. ?Living with: significant other. ?Marital status: , in relationship with male partner. 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 Swam in [facility]. Worked at [employer] 19 years. 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 played alot of s[employer]ball. Now does back country hiking 3-4 months a year. Travels through the country by car sightseeing. In relationship satya Hawk for 21 years. 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 Lives in [place] but also has [employer] in [place] Has two grandsons. * Medications:?TakingFolic Aci d [...] 1 TABLET BY MOUTH EVERY DAY Not-TakingSaw Lebanon 500 MG Capsule as directed Orally Ezetimibe 10 MG Tablet 1 tablet Orally Once a dayMedication List reviewed and reconciled with the patientNot-Taking Saw Lebanon 500 MG Capsule as directed Orally Not-Taking [...] - 12/07/2022) (Collection Date - 12/07/2022)?Value Reference Range?[id number] - mm/hr ???Lab:URIC ACID (Order Date - [...] (Primary)?2.?Essential hypertension - I10?3.?Coronary artery disease involving omaha coronary artery of omaha heart without angina pectoris - I25.10?4.?Benign prostatic [...] Months * Billing Information: * Visit Code:? 13626 Office Visit, Est Pt., Level 4. * Procedure Codes:? * Sign off status: Completed true * Provider:?Sunil Hawthorne MD Date:?2022 Generated for Zoraida garces/Adela/Edd on:?01/09/2025 06:35 PM EDT History and Physical Notes * HPI (History [...] Scheduled for echo after [address] Landon . Meds reviewed . No new complaints today. His sister of Covid in Nov 2022 in [place] Drove over there in February for the . Has 4 children 01/08/23 Medications reviewed and reconciled Saw Dr Hawthorne wanted to go to her Dr Petrona sanz, they did xrays, EMG testing. She said no carpel tunnel. she did surgery in both hands and removed bone and helped. Has a pinhole in side of left hand, dr petrona sanz recommend retail experience specialist. Used to see Dr Toscano a long time ago. he is moving to [place] so will refer to arthritis treatment center. [...] treadmill every morning for 30 minutes at [facility]. Has 2 stents in his heart. Lived in [facility] for 54 yrs. Moved to [place] at [place] for 5 years and then moved back to [place] 10 years ago because of his GF. Lives with her 23 years . Carine Harvey 54 yr Works at [employer] in [place] for 30 yrs He was for 12 yrs and has a daughter Yumi Delvalle 43 yr Director of [employer] in [facility]. with 2 sons Murray 7 yr and Paul 11 yrs . Keeps in touch Lives in [place] in [place]. ([phone]) . Carine has 2 children Margaret Angel 33 yr Special needs Lives with them [place]. Graduated from College. Prasanna Angel 30 yr works for [employer] in [place] Single Lives with father in . Living in [facility] for 23 years .He sold his [employer] acre [employer] in [place] 15 years $1.1 million. Meds reviewed and reconciled Former smoker. Stopped [address] is Dr Meek Saw him early this year Once a year. Sees eye doctor every 2 years. Sharon started him on Tamsulosin a month ago and fels improvement in his urination. Hobbies , Travelling in his car a month at a tiime without a destination Went to [facility] last year. Visted his siter in [facility] last February 2022. Comes today for evaluation of hand swelling and numbness which started last Woke up and coulldnt open his hands Its beter but still stiff . Never happened before. Examination Category Sub-Category Detail Notes Category Not es General Examination GENERAL APPEARANCE: in no ac ho-chunk distress, well developed, well nourished HEAD: normocephalic, atrau matic HEART: no murmurs, regular rate and rhythm, S1, S2 normal LUNGS: clear to auscultatio n bilaterally ABDOMEN: normal, bowel sounds present, soft, nontender, nondistended PSYCH: alert, oriented , co gnitive function intact , good eye contact
== END 2025-01-09 16:30 | disposition home or self-care (01) ==
LOC: HO.HMCFM 15:50
PROVIDERS: PCP Family Medicine; Visit Provider Family Medicine
DX: Z00.00 Encounter for general adult medical examination without abnormal findings (principal); D64.9 Anemia, unspecified; I10 Essential (primary) hypertension; I25.10 Atherosclerotic heart disease of native coronary artery without angina pectoris; K08.9 Disorder of teeth and supporting structures, unspecified; F17.200 Nicotine dependence, unspecified, uncomplicated; Z12.5 Encounter for screening for malignant neoplasm of prostate; Z12.11 Encounter for screening for malignant neoplasm of colon; R73.01 Impaired fasting glucose

== ENCOUNTER → 2025-01-09 15:49 | Outpatient (BNVA) | payer OTHER, SELFPAY | PROVIDERS: PCP Family Medicine; Visit Provider Family Medicine | DX: Z00.00 Encounter for general adult medical examination without abnormal findings (principal); D64.9 Anemia, unspecified; I10 Essential (primary) hypertension; I25.10 Atherosclerotic heart disease of native coronary artery without angina pectoris; K08.9 Disorder of teeth and supporting structures, unspecified; R73.01 Impaired fasting glucose; Z79.899 Other long term (current) drug therapy; Z87.891 Personal history of nicotine dependence | CPT/HCPCS: 96127 ==

== ENCOUNTER 2025-03-01 11:21 | Outpatient (AMB) | payer OTHER, SELFPAY ==
--- NOTE | 2025-03-01 11:35 | A.OFFVIS_ITS ---
Intake Visit Reasons: 4m/US Intake Note: Patient is present for 4M/US Urology Medication:TAMSULOSIN Antibiotic Allergy:NONE Blood Thinner:NONE General Activities Therapist Required: No Allergies codeine Allergy (Intermediate, Verified 03/13/25 09:08) Headache HPI Comments Details: 03/01/25--69-year-old male presenting with benign prostatic hyperplasia (BPH) for follow-up. Treatments have included dutasteride and tamsulosin, leading to decreased nocturnal urinary frequency. He occasionally notes increased urination during the day, often correlated with high fluid consumption like coffee. Ultrasound findings revealed complex cystic lesions kidney and prostate. Plan to further evaluate the noted cysts, a CT scan Abd/pelvis with and without IV contrast. PSA monitoring. Continuation of the current dutasteride and tamsulosin regimen, given its efficacy for this patient's urinary symptoms, is confirmed. Urinary Symptoms Review - Decreased frequency of nocturnal urination with current medications - Increased daytime urination associated with high fluid intake, particularly coffee - No reports of discomfort, pain, or incontinence - No urinary hesitancy Results - Ultrasound Report (12/26/24): - Prostate: 2.1 x 2.2 cm complex cystic lesion, - Left Kidney: 0.7 cm complex cystic lesion - No urolithiasis noted 11/13/24--Jorge is a 69-year-old male who is here for evaluation due to enlarged prostate and incomplete bladder emptying. The patient states he gets up 1-3 times at night to urinate. He denies irritative voiding symptoms. He admits to drinking a lot of coffee throughout the day about 32 oz. He states he drinks decaffeinated coffee. I have discussed cutting back on coffee intake to about 12 oz. Reviewed PSA lab results with the patient which is within normal limits. Bladder scan PVR today is 187 mL. He is on tamsulosin daily, I have discussed adding Avodart 0.5 mg daily. Will check ultrasound retroperitoneal follow-up in 4 months PSA-09/13/2024--3.13 ng mL PFSH Medical History (Updated 05/06/25 @ 08:14 by Osiris Oreilly MD) CAD (coronary artery disease) Stented coronary artery Hypertension Hyperlipidemia Pre-diabetes BPH loc w urin obs/LUTS Personal history of nicotine dependence Surgical History (Updated 02/08/25 @ 16:05 by Brittney Pedersen PA-C) History of surgery on wrist History of umbilical hernia repair History of heart artery stent Social History (Updated 03/23/25 @ 09:54 by Brittney Pedersen PA-C) Housing: House Patient Tobacco Use Status: Current someday Tobacco user Years Smoked: (onset 16yo, 1ppd x 42yrs, 40pyh - quit 2013) e-Cigarette/Vaping Use: Never Used service: No Current occupational status: retired Current occupational exposures/hazards: No Cognitive needs: No Hearing needs: No Vision needs: Yes Review of Systems Const All systems reviewed & are unremarkable except as noted in HPI and below Reports no additional complaints Eyes Reports no additional complaints ENT Reports no additional complaints Card Reports no additional complaints Resp Reports no additional complaints GI Reports no additional complaints Reports as per HPI Musc Reports no additional complaints Skin/Breast Reports system reviewed and no additional complaints, except as documented Neuro Reports no additional complaints Psych Reports no additional complaints Endo Reports no additional complaints Randell/Lymph Reports no additional complaints Aller/Immun Reports no additional complaints Results Reviewed Results Reviewed: Date of Service: 12/26/24 CLINICAL HISTORY: N40.1 - Benign prostatic hyperplasia with lower urinary tract symptoms US retroperitoneum with color Doppler Comparison: None Findings: Right kidney normal size and echotexture, 12.0 cm length. No hydronephrosis. Normal color flow. No nephrolithiasis. Benign renal cortical cyst lower pole measuring 1.4 x 1.0 x 1.2 cm. Left kidney normal size and echotexture, 11.3 cm in length. No hydronephrosis. Normal color flow. No nephrolithiasis. Complex cystic lesion with septation midpole measuring 0.7 x 0.6 x 0.7 cm. Urinary bladder is unremarkable. Prevoid volume 195.0 mL. Postvoid volume 155 mL. Ureteral jets are visualized bilaterally Prostate gland measures 3.8 x 3.9 x 3.8 cm. Volume 29.5 cc. Complex cystic lesion within the prostate gland measuring 2.1 x 2.1 x 2.2 cm. Impression: 1. Elevated postvoid residual. Prostate volume 155 cc. 2. Complex cystic lesion seen within the prostate gland. MRI may be of further diagnostic value. 3. Complex cystic lesion lower pole left kidney CT or MRI with and without contrast renal protocol study can be considered. Assessment & Plan Assessment & Plan (1) Incomplete emptying of bladder: Code(s): R33.9 - Retention of urine, unspecified Category: Medical (2) BPH loc w urin obs/LUTS: Code(s): N40.1 - Benign prostatic hyperplasia with lower urinary tract symptoms Category: Medical (3) Complex renal cyst: Code(s): N28.1 - Cyst of kidney, acquired Category: Medical (4) Prostatic cyst: Code(s): N42.83 - Cyst of prostate Category: Medical (5) Abnormal ultrasound of prostate: Code(s): R93.89 - Abnormal findings on diagnostic imaging of other specified body structures Category: Medical Plan Plan to further evaluate the noted prostate and complex renal cysts, a CT scan Abd/pelvis with and without IV contrast. PSA monitoring. Continuation of the current dutasteride and tamsulosin regimen, Instructions - Continue taking dutasteride and tamsulosin as prescribed. - Reduce coffee intake to manage daytime urination frequency. - Drink plenty of water; aim for a consistent fluid intake. - fu for CT scan. Patient Instructions: The patient had an opportunity to ask questions regarding treatment plan. The patient expressed understanding and agreement with the above treatment plan. The patient is aware they should contact our office by phone for worsening of their current condition or the appearance of new symptoms. Compliance is encouraged with any medications and followup testing that is ordered. It is a privilege to be allowed the opportunity to participate in the urologic care of your patient. If you have any questions or concerns regarding treatment for the above conditions please do not hesitate to contact me. The office telephone contact is [phone]. This note is constructed in part using voice recognition software. While every effort has been made to ensure accuracy knitter wire mesh errors may have been included. Yours sincerely, Osiris Oreilly MD Scribe Plan - Not visible on output: Patient was informed and verbally consented to the use of an ambient scribe for clinic note documentation during this visit. Coding Level of Care Code Est Pt Level 4 (33651) Complex EM visit Add On G2211 Diagnoses Incomplete emptying of bladder R33.9 BPH loc w urin obs/LUTS N40.1 Complex renal cyst N28.1 Prostatic cyst N42.83 Abnormal ultrasound of prostate R93.89
== END 2025-03-01 12:43 | disposition home or self-care (01) ==
LOC: HO.HUSH 11:21
PROVIDERS: PCP Family Medicine; Visit Provider Urology
DX: R33.9 Retention of urine, unspecified (principal); N40.1 Benign prostatic hyperplasia with lower urinary tract symptoms; N28.1 Cyst of kidney, acquired; N42.83 Cyst of prostate; R93.89 Abnormal findings on diagnostic imaging of other specified body structures
CPT/HCPCS: 99214

== ENCOUNTER → 2025-03-01 11:21 | Outpatient (BNVA) | payer OTHER, SELFPAY | PROVIDERS: PCP Family Medicine; Visit Provider Urology ==

== ENCOUNTER 2025-03-06 07:20 | Outpatient (REF) | payer OTHER, SELFPAY ==
[2025-03-06 10:08] LABS: MANUAL DIFF FLAG NO
[2025-03-06 10:31] LABS: Basophils Percent Auto 0.4 % (0-2); Eosinophils Absolute Auto 0.3 X10*3/uL (0.0-0.4); Eosinophils Percent Auto 4.6 % (0-4); Hematocrit 39.5 % (42.0-52.0); Hemoglobin 12.7 g/dl (14.0-18.0); Imm Gran Abs Auto 0.02 X10*3/uL (0.00-0.03); Imm Gran Pct Auto 0.3 % (0.0-0.4); Lymphocytes Absolute Auto 1.1 X10*3/uL (1.2-4.9); Mean Corpuscular HGB Conc 32.2 g/dl (31.0-36.0); Mean Corpuscular Hemoglobin 29.6 pg (27.0-33.0); Mean Corpuscular Volume 92.1 fL (80.0-98.0); Mean Platelet Volume 9.8 fL (9.4-12.4); Monocytes Absolute Auto 0.5 X10*3/uL (0.1-1.2); Neutrophils Absolute Auto 4.8 x10*3/uL (2.0-8.3); Neutrophils Percent Auto 70.7 % (45-73); Platelet Count 312 X10*3/uL (160-400); Red Blood Count 4.29 X10*6/uL (4.60-5.80); Retic HGB Equivalent 33.9 pg (30.0-35.0); Reticulocyte Percent 1.1 % (0.5-1.8); Reticulocytes Absolute 0.046 X10*6/uL (0.026-0.095); White Blood Count 6.8 X10*3/uL (4.8-10.8)
[2025-03-06 10:32] LABS: Estimated Average Glucose 123 mg/dL; Hemoglobin A1C 139.7873 umol/L; Hemoglobin A1c % 5.9 % (<6.0); Total Hemoglobin (HGBA1C) 3404.0867 umol/L
[2025-03-06 11:03] LABS: Alanine Aminotransferase 29 U/L (0-40); Albumin Level 4.1 g/dL (3.5-5.0); Anion Gap 13 (12-20); Aspartate Amino Transferase 31 U/L (5-37); Bilirubin Total 0.4 mg/dL (0.0-1.0); Blood Urea Nitrogen 16 mg/dL (9-16); Calcium 9.6 mg/dL (8.4-10.2); Carbon Dioxide 24 mmol/L (22-29); Chloride 108 mmol/L (96-108); Cholesterol 131 mg/dL (<200); Estimated Glomerular Filt Rate > 60; Glucose Fasting 102 mg/dL (60-99); HDL Cholesterol 46 mg/dL (>40); Iron 98 mcg/dL (45-160); LDL Cholesterol Calculated 70 mg/dL (<100); Percent Iron Saturation 41 % (15-50); Potassium 4.3 mmol/L (3.3-5.1); Sodium 141 mmol/L (135-145); Total Iron Binding Capacity 240 mcg/dL (228-428); Total Protein 6.9 g/dL (6.5-8.0); Triglycerides 76 mg/dL (<150); Unsaturated Iron Binding 142 ug/dL
[2025-03-06 11:08] LABS: Ferritin 277 ng/mL (20-250)
[2025-03-06 11:12] LABS: Vitamin B12 916 pg/mL (200-900)
[2025-03-06 13:11] LABS: Alkaline Phosphatase 104 U/L (39-117)
== END 2025-03-06 07:21 | disposition home or self-care (01) ==
LOC: HO.HMGCLDS 07:20
PROVIDERS: PCP Family Medicine; Visit Provider Family Medicine
DX: Z00.00 Encounter for general adult medical examination without abnormal findings (principal); D64.9 Anemia, unspecified; E53.8 Deficiency of other specified B group vitamins; I25.10 Atherosclerotic heart disease of native coronary artery without angina pectoris; R73.01 Impaired fasting glucose
CPT/HCPCS: 36415; 80053; 80061; 82607; 82728; 82746; 83036; 83540; 85025; 85045

== ENCOUNTER 2025-03-13 08:38 | Outpatient (AMB) | payer OTHER, SELFPAY ==
--- OUTSIDE RECORDS SUMMARY | 2025-03-13 08:53 | XMS_ITS | Clinical Summary ---
Author Organization [facility] Address [address] [place] [address] Phone Care Team Providers Care Spring Winder Name Role Phone Jennifer Quiroz MD Primary [...] Problem Noted Date Diagnosed Date Pulmonary emphysema (CMS/HCC V24, [facility] V28) 0 01/04/2024 Essential hypertension 01/04/2024 HLD (hyperlipidemia) 01/04/2024 Enlarged prostate without lo wer urinary tract symptoms (luts) 01/04/2024 Rheumatoid arthritis ([facility] V24, [facility] V28) 01/04/2024 CAD (coronary atherosclerotic disease) 6 Overview [...] atherosclerotic disease); COMMENT: with stents Pulmonary emphysema ([facility] V24, [facility] V28) DX:Pulmonary emphysema (HCC) History of elevated glucose DX:H istory of elevated glucose HTN (hypertension) DX:HTN (hyper tension) HLD (hyperlipidemia) DX:HLD (hyp erlipidemia) Enlarged prostate without lo wer urinary tract symptoms (luts) DX:Enlarged prostate without lower urinary tract symptoms (luts) Rheumatoid arthritis (CMS/HC C V24, CMS/HCC V28) DX:Rheumatoid arthritis (HCC ) Family History Medical History Relation Name Comments [...] Due Date Last Done Comments RSV Immunization Adult Patients (1 - Risk 60-74 years 1-dose series) 2013 09/10/2023 Zoster Vaccines (2 of 3) 07/08/2015 05/13/2015 Hepatitis C Screening 09/23/2022 Medicare Annual Wellness Visit 09/23/2022 Social Influencers of Health Screening 09/23/2022 Pneumococcal Vaccine: 50+ Years (3 of 3 - PCV20 or PCV21) 05/25/2024 05/25/2019, 03/14/2013 COVID-19 Vaccine ( season) 2024 07/27/2023, 07/27/2023, 09/28/2022, Additional history exists Lung Cancer Screening (Low Dose CT) 10/11/2024 10/11/2023, 09/25/2022, 09/24/2021 Depression Screening 01/03/2025 01/04/2024 Falls Risk Assessment 01/03/2025 01/04/2024 Hypertension/CHF/CAD Annual BMP Blood Test 01/04/2025 01/05/2024 Influenza Vaccine (Season Ended) 2025 07/27/2023, 07/27/2023, 07/17/2022, Additional history exists Cholesterol Screening (Lipid Panel) 01/04/2029 01/05/2024 DTaP,Tdap,and [...] age to complete this topic Meningococcal B Vaccine Aged Out No l onger eligible based on patient's age to complete this topic Varicella Vaccines Aged Out No longer eligible based on patient's age to complete this topic Procedures Procedure Name Priority Date/Time Associated Diagnosis Comments US ABDOMINAL AORTA REAL TIME SCREEN STUDY AAA Routine 02/03/2024 9:26 AM EDT Personal history of nicotine dependence HM ANNUAL BMP BLOOD TEST Routine 01/05/2024 LIPID [...] MAINTENANCE Final Result * Lipid panel (01/05/2024) Pathologist [facility] LDL/HDL Ratio 2 0 - 4 Triglycerides 82 0 - 150 mg/dL Cholesterol 118 0 - 200 mg/dL HDL 53 >=40 mg/dL LDL Cholesterol 49 0 - 100 mg/dL Blood Venous blood specimen / Unknown Historical Provider LAB BLOOD ORDERABLES Radha l Result * Falls Risk Assessment (01/04/2024) Pathologist [facility] Falls Risk Assessment abstracted Historical Provider HEALTH MAINTENANCE Final Result * Depression Screening (01/04/2024) Pathologist Pending sale to [facility] Depression Screening abstracted Historical Provider HEALTH MAINTENANCE Final Result * CT LUNG SCREENING LOW DOSE (10/11/2023 4:23 AM EST) Anatomical Region Laterality Modality Computed Tomogra phy 09/30/2023 7:43 AM EST Narrative 10/11/2023 4:23 AM EST [facility] Diagnostic Imaging Department [address] [place] [address] Patient: ??SEDRICK HOWE ?/Age/Sex: 1955 - 68 - M Unit#: ??[id number] ? Location/Status: ??SPDICATLS/REG CLI ? Mnemonic/Ordering Site: ??CTLUNGLD/SPCT Ordering Physician: ??TREVON DONATO MD CT Lung Screening Low Dose - 09/30/23 - 76 Report Status:Signed Indication: Greater than 20 total [...] Procedure Note Alex Malin MD - 11/30/2023 [facility] Diagnostic Imaging Department [address] [place] [address] Patient: SEDRICK HOWE /Age/Sex: 1955 - 68 - M Unit#: [id number] Location/Status: SPDICATLS/REG CLI Mnemonic/Ordering Site: [facility] [[email or web address]] Ordering Physician: TREVON DONATO MD CT Lung Screening Low Dose - 09/30/23746 Report Status:Signed Indication: Greater than 20 total [...] Signed by: ALEX MALIN MD Dic Date/Time: 10/11/239 Sign date/Time: 10/11/23422 us Trevon Donato MD IMG CT PROCEDURES Final Result * Colonoscopy (09/14/2019) Colonoscopy no interpretation , abstracted Anatomical Region Laterality Modality Other Historical Provider HEALTH MAINTENANCE Final Result from Last 3 Months or Most Recently Relevant to Health Maintenance Insurance [employer] MEDICARE Care Teams Spring Winder Relationship Specialty Start Date End Date Jennifer Quiroz MD [address] [place] [address] PCP - General Internal Medicine 10/04/24
--- NOTE | 2025-03-13 09:07 | MHC.PC.OV ---
Vital Signs 03/13/25 09:10 Height 5 ft 10 in Weight 161 lb 2 oz BMI 23.1 BP 130/60 Blood Pressure Location Lt brachial Position Sitting Respiration 14 Pulse 56 Pulse Source Pulse Oximeter Temp 97.9 F Temp Source Oral Pulse Oximetry (%) 96 Oxygen Delivery Method Room Air Intake Visit Reasons: follow-up mild anemia Intake Note: patient is scheduled to follow up for lab work Social Media Intern Required: No Allergies codeine Allergy (Intermediate, Verified 03/13/25 09:08) Headache Tobacco use date assessed: 01/09/25 Fall risk assessment: No Falls in past year Last assessed Fall Risk: 03/13/25 Dental Screening Dental Screen Date: 09/12/24 HPI follow-up mild anemia HPI Details 69 y/o male presents to f/u mild anemia. Labs drawn 03/06/25. Reviewed labs with pt. Ongoing mild anemia, slightly improving. A1c 5.9%. Triglycerides 76. TC 131. LDL 70. HDL 46. He is on artovastatin 80mg. Hx of CAD. BP today 130/60, 56p. He is on lisinopril 20mg daily. Has complaints of a tick bite. [facility] Medical History (Updated 03/13/25 @ 09:46 by Vince Hyman) Stented coronary artery CAD (coronary artery disease) Hypertension Personal history of nicotine dependence Surgical History (Updated 02/08/25 @ 16:05 by Brittney Pedersen PA-C) History of surgery on wrist History of umbilical hernia repair History of heart artery stent Social History Housing: House Patient Tobacco Use Status: Former Tobacco user e-Cigarette/Vaping Use: Never Used service: No Current occupational status: retired Current occupational exposures/hazards: No Cognitive needs: No Hearing needs: No Vision needs: Yes Questionnaire Thrive Questionnaire Date Thrive assessed: 01/06/25 I am a: Patient What is your living situation today?: I have a steady place to live Within the past 12 months, did the food you bought not last and you didn't have the money to get more?: Never true Within the past 12 months, did you worry whether your food would run out before you got money to buy more?: Never true Do you have trouble paying for medicines?: No Do you have trouble getting transportation to medical appointments?: No Do you have trouble paying your heating and electricity bill?: No Do you have trouble taking care of your child, family member or friend?: No Do you have trouble with day-to-day activities such as bathing, preparing meals, shopping, managing finances, etc.?: No Are you currently unemployed and looking for a job?: No Are you interested in more education?: No Please select the resources that you would like help with: None Currently or been in a relationship where the following occur: I choose not to answer THRIVE Score: 0 OTONIEL-7 AMB Questionnaire OTONIEL-7 Date OTONIEL - 7 assessed: 01/09/25 Source: Developed by Drs. Aba Larsen, Soraya Marcelino, Indra Duran and colleagues, with an educational lisette from [employer]. Review of Systems Const Denies chills, Denies fatigue, Denies fever(s), Denies headache(s) and Denies weakness ENT Denies dizziness and Denies headache(s) Card Denies dyspnea Resp Denies cough, Denies dyspnea, Denies wheezing and Denies other (shortness of breath) Musc Denies numbness and Denies tingling Neuro Denies dizziness, Denies headache(s), Denies numbness, Denies tingling and Denies weakness Psych Denies anxiety and Denies depression Endo Denies fatigue Aller/Immun Denies wheezing Physical exam (Primary Care) Vital Signs: Last Vital Signs Temp 97.9 F 03/13/25 09:10 Pulse 56 03/13/25 09:10 Resp 14 03/13/25 09:10 BP 130/60 03/13/25 09:10 Pulse Ox 96 03/13/25 09:10 Oxygen Delivery Method Room Air 03/13/25 09:10 BMI result Body Mass Index 23.1 Tobacco/Smoking Status: Tobacco use Status Tobacco use date assessed 01/09/25 03/13/25 09:14 Patient Tobacco Use Status Former Tobacco user 03/13/25 09:14 e-Cigarette/Vaping Use Never Used 03/13/25 09:14 Thrive Assessment: Date of Thrive Assessment Date Thrive assessed 01/06/25 03/13/25 09:14 Currently or been in a relationship where the following occur: I choose not to answer Const General: well developed; No acute distress Nutritional Appearance: well nourished Orientation/consciousness: patient oriented x3 HENMT Head: Yes normocephalic and Yes atraumatic Eyes General: appearance normal, both eyes and all related structures Pupils: Equal, round and reactive pupils present EOM: EOMs intact bilaterally Resp Effort & Inspection: normal respiratory effort Neuro General: patient oriented x3 and gait normal Cranial nerves: Yes Equal, round and reactive pupils present Psych Affect: normal affect Coding Level of Care Code Est Pt Level 4 (79490) Diagnoses Hypertension I10 CAD (coronary artery disease) I25.10 Pre-diabetes R73.03 Anemia of chronic disease D63.8 Tick bites W57.XXXA Assessment & Plan Assessment & Plan (1) Hypertension: Code(s): I10 - Essential (primary) hypertension Category: Medical Plan: Blood?pressure?is?fairly?well?controlled.??Goal?is?less?than?130/80 Watch?salt/sodium?in?diet Get?plenty?of?sleep Control?weight?and?get?exercise?as?tolerated Control?weight Will?continue?to?monitor Continue?current?medication (2) CAD (coronary artery disease): Code(s): I25.10 - Atherosclerotic heart disease of [place] coronary artery without angina pectoris Category: Medical Plan: Stable (3) Pre-diabetes: Code(s): R73.03 - Prediabetes Category: Medical Plan: A1c?in?pre?diabetes?range. Work?at?a?diet?low?in?sugars?and?starches Will?monitor (4) Anemia of chronic disease: Code(s): D63.8 - Anemia in other chronic diseases classified elsewhere Category: Medical Plan: Patient?with?rheumatoid?arthritis?and?on?methotrexate CBC?consistent?with?anemia?of?chronic?disease Stable Will?monitor (5) Tick bites: Code(s): W57.XXXA - Bitten or stung by nonvenomous insect and other nonvenomous arthropods, initial encounter Category: Medical Plan: Recent?tick?bite.??Will?give?patient?prophylactic?doxycycline Can?check?Lyme?titer w/?blood?draw Orders: Orders Lyme IgG/IgM w/reflex to WB Today W57.XXXA - Bitten or stung by nonvenomous insect and other nonvenomous arthropods, initial encounter Hemoglobin A1c Today R73.01 - Impaired fasting glucose, R73.03 - Prediabetes Comprehensive [place]. Panel Fast Today R73.03 - Prediabetes, Z00.00 - Encounter for general adult medical examination without abnormal findings Medications: New doxycycline hyclate 200 mg (2 x 100 mg) PO ONCE 2 tabs 0RF 1 day W57.XXXA - Bitten or stung by nonvenomous insect and other nonvenomous arthropods, initial encounter
[2025-03-13 09:10] VITALS: BP 130/60; PULSE 56; RESP 14; TEMP 36.6; O2SAT 96; BMI 23.1
== END 2025-03-13 09:45 | disposition home or self-care (01) ==
LOC: HO.HMCFM 08:38
PROVIDERS: PCP Family Medicine; Visit Provider Family Medicine
DX: I10 Essential (primary) hypertension (principal); I25.10 Atherosclerotic heart disease of native coronary artery without angina pectoris; R73.03 Prediabetes; D63.8 Anemia in other chronic diseases classified elsewhere; W57.XXXA Bitten or stung by nonvenomous insect and other nonvenomous arthropods, initial encounter

== ENCOUNTER → 2025-03-13 08:38 | Outpatient (BNVA) | payer OTHER, SELFPAY | PROVIDERS: PCP Family Medicine; Visit Provider Family Medicine | DX: Z13.89 Encounter for screening for other disorder (principal) ==

== ENCOUNTER 2025-03-23 09:24 | Outpatient (AMB) | payer OTHER, SELFPAY ==
--- NOTE | 2025-03-23 07:58 | MHC.OFFVIS ---
Intake Visit Reasons: Former Smoker Allergies codeine Allergy (Intermediate, Verified 03/13/25 09:08) Headache HPI HPI Former Smoker: Details: Initial visit for this 69yo former smoker with a 40PYH. Patient started smoking at age 16 for 42 years at 1ppd. Quit 11 years ago in 2013. . Denies marijuana use. Denies second hand smoke exposure. Denies exposure to chemicals or substances like asbestos. . Denies known family history of lung cancer. Denies personal history of cancers. . Denies chest CT in last year. Reports prior chest CT but insurance issues - was due in August at [facility]. . Denies recent travel outside the . Denies recent respiratory illness or recent hospitalization for respiratory issues. Reports history testing positive for COVID. Admits receiving COVID Vaccine. . Denies fever, chills, new/worsening cough, hemoptysis, hoarseness or dysphagia. Denies significant chest pain, significant dyspnea or unintentional weight loss. Patient Lung Cancer Screening Questionnaire reviewed with patient by provider. . Shared Decision Making Completed. Patient meets criteria. Discussed in detail with patient, the risk vs benefit of LDCT screening. Patient consents to proceed with scan. Discussed and encouraged continued smoking cessation. [facility] Medical History (Updated 03/23/25 @ 09:47 by Brittney Pedersen PA-C) CAD (coronary artery disease) Stented coronary artery Hypertension Hyperlipidemia Pre-diabetes BPH loc w urin obs/LUTS Personal history of nicotine dependence Surgical History (Updated 02/08/25 @ 16:05 by Brittney Pedersen PA-C) History of surgery on wrist History of umbilical hernia repair History of heart artery stent Social History (Updated 03/23/25 @ 09:54 by Brittney Pedersen PA-C) Housing: House Patient Tobacco Use Status: Current someday Tobacco user Years Smoked: (onset 16yo, 1ppd x 42yrs, 40pyh - quit 2013) e-Cigarette/Vaping Use: Never Used service: No Current occupational status: retired Current occupational exposures/hazards: No Cognitive needs: No Hearing needs: No Vision needs: Yes Assessment & Plan Assessment & Plan (1) Personal history of nicotine dependence: Comment: (onset 16yo, 1ppd x 42yrs, 40pyh - quit 2013) Code(s): Z87.891 - Personal history of nicotine dependence Category: Medical Plan: - SDM visit completed today in office. - Patient meets criteria for LDCT for lung cancer screening purposes and is asymptomatic. - Smoking cessation counseling offered. Patients can always call [phone]. - Will arrange for a LDCT scan of the chest for screening purposes at [facility]. - Risks, benefits, and alternatives were discussed in detail and the patient agrees to proceed. - Risks discussed include but are not limited to: radiation exposure, anxiety during testing and while awaiting results, false negatives, false positives and possibility of additional intervention such as further imaging or surgical procedures for benign disease. - Benefits are obviously detection of lung cancer at an early stage which can lead to improved outcomes. - Discussed the importance of screening program compliance with adherence to yearly LDCT scan as scheduled - or sooner interval scans for personalized screening regimen. - Discussed follow up plan. Our office will send a letter discussing results and if needed set up phone call and office visit based on CT findings. - Patient educated on results categorization and the management decisions for suspicious findings potentially found on the screening LDCT scan. Any patient with a Lung RADS score of 3 or 4 will be reviewed by a multidisciplinary team at [facility] to form a plan of action in regards to scan findings. - If further work up is warranted for a suspicious lung finding this will be followed by the Lung Cancer Screening program in conjunction with the Thoracic Surgery Department at [facility]. - A copy of the office note and LDCT will be sent to the patient's PCP - as well as documentation on any associated further plans of care. - Incidental findings on LDCT are the PCP's responsibility. These findings are indicated with an S finding on the LDCT Assessment. A note discussing the findings will be sent to the PCP who is then responsible for further management. - All questions answered.? Coding Level of Care Code Lung Cancer Screening G0296 Diagnoses Personal history of nicotine dependence Z87.892
--- OUTSIDE RECORDS SUMMARY | 2025-03-23 09:41 | XMS_ITS | Clinical Summary ---
Author Organization [facility] Address [address] [place] [address] Phone Care Team Providers Care Knitting Teacher Name Role Phone Jennifer Quiroz MD Primary [...] Date Diagnosed Date Pulmonary emphysema (CMS/HCC V24, [facility] V28) 0 01/04/2024 Essential hypertension 01/04/2024 HLD (hyperlipidemia) 01/04/2024 Enlarged prostate without lo wer urinary tract symptoms (luts) 01/04/2024 Rheumatoid arthritis ([facility] V24, [facility] V28) 01/04/2024 CAD (coronary atherosclerotic disease) 6 [...] atherosclerotic disease); COMMENT: with stents Pulmonary emphysema ([facility] V24, [facility] V28) DX:Pulmonary emphysema (HCC) History of [...] Final Result * Lipid panel (01/05/2024) Pathologist [facility] LDL/HDL Ratio 2 0 - 4 Triglycerides 82 0 - 150 mg/dL Cholesterol 118 0 - 200 mg/dL HDL 53 >=40 mg/dL LDL Cholesterol 49 0 - 100 mg/dL Blood Venous blood specimen / Unknown Historical Provider LAB BLOOD ORDERABLES Radha l Result * Falls Risk Assessment (01/04/2024) Pathologist [facility] Falls Risk Assessment abstracted Historical Provider HEALTH MAINTENANCE Final Result * Depression Screening (01/04/2024) Pathologist [facility] Depression Screening abstracted Historical Provider HEALTH MAINTENANCE Final Result * CT LUNG SCREENING LOW DOSE (10/11/2023 4:23 AM EST) Anatomical Region Laterality Modality Computed Tomogra phy 09/30/2023 7:43 AM EST Narrative 10/11/2023 4:23 AM EST [facility] Diagnostic Imaging Department [address] [place] [address] Patient: ??SEDRICK HOWE ?/Age/Sex: 1955 - 68 - M Unit#: ??[id number] ? Location/Status: ??SPDICATLS/REG CLI ? Mnemonic/Ordering Site: ??[facility] Ordering Physician: ??TREVON DONATO MD CT Lung Screening Low Dose - 09/30/23 - 72 Report Status:Signed Indication: Greater than 20 total [...] Procedure Note Alex Malin MD - 11/30/2023 [facility] Diagnostic Imaging Department [address] [place] [id number] Patient: SEDRICK HOWE /Age/Sex: 1955 - 68 - M Unit#: [id number] Location/Status: SPDICATLS/REG CLI Mnemonic/Ordering Site: [facility] Ordering Physician: TREVON DONATO MD CT [...] Maintenance Insurance [employer] Care Teams Knitting Teacher Relationship Specialty Start Date End Date Jennifer Quiroz MD [address] [place] [id number] PCP - General Internal Medicine 10/04/24
== END 2025-03-23 10:12 | disposition home or self-care (01) ==
LOC: HO.HPS 09:25
PROVIDERS: PCP Family Medicine; Referring Provider Family Medicine; Visit Provider Physician Assistant Medical
DX: Z87.891 Personal history of nicotine dependence (principal)
CPT/HCPCS: G0296

== ENCOUNTER 2025-03-23 09:56 | Outpatient (REF) | payer MEDICARE, SELFPAY ==
--- NOTE | ~2025-03-23 | CT_ITS ---
EXAMINATION: CT LUNG SCREENING HISTORY: Z87.891 - Personal history of nicotine dependence TECHNIQUE: Low dose axial images were obtained from the sternal notch to upper abdomen without IV contrast per standard departmental protocol. Sagittal and coronal reformatted images were also obtained and reviewed. One or more of the following techniques was used for dose reduction: Automated exposure control, adjustment of the mA and/or kV according to patient size, use of iterative reconstruction technique. DLP: 51 mGy-cm COMPARISON: There are no prior studies available for comparison. FINDINGS: Lung nodules: Tiny nodules along the left major fissure are compatible with intrapulmonary lymph nodes. No suspicious pulmonary nodules are identified. There is biapical pleural thickening. Emphysema: moderate Coronary Calcification: severe Aortic Arch Calcification: mild Potentially Significant Incidentals : none Additional Chest Findings: There is no pleural or pericardial effusion. No mediastinal or axillary lymphadenopathy is identified. Visualized upper abdomen: The visualized portions of the liver, spleen, and adrenals have an unremarkable unenhanced appearance. CT/CT lung screening IMPRESSION: No suspicious pulmonary nodules are identified. LUNG-RADS ASSESSMENT: Lung-RADS 2: Benign MANAGEMENT: Continue annual screening with LDCT in 12 months Category S: N/A Electronically signed by: Aba Roberto MD 03/23/2025 11:35 AM EDT
== END 2025-03-23 09:57 | disposition home or self-care (01) ==
LOC: HO.CT 09:56
PROVIDERS: PCP Family Medicine; Visit Provider Physician Assistant Medical
DX: Z12.2 Encounter for screening for malignant neoplasm of respiratory organs (principal); Z87.891 Personal history of nicotine dependence
CPT/HCPCS: 71271; G0296

== ENCOUNTER → 2025-03-23 09:58 | Outpatient (BNV) | payer MEDICARE, SELFPAY | PROVIDERS: PCP Family Medicine; Visit Provider Radiology Diagnostic Radiology | DX: Z87.891 Personal history of nicotine dependence (principal) | CPT/HCPCS: 71271 ==

== ENCOUNTER 2025-04-18 07:30 | Outpatient (REF) | payer MEDICARE, SELFPAY ==
--- NOTE | ~2025-04-18 | US_ITS ---
CLINICAL HISTORY: N40.1 - Benign prostatic hyperplasia with lower urinary tract symptoms US Renal Comparison: None provided Findings: Right kidney normal size and echotexture, 11.2 cm length. Complex 2.3 cm right renal cyst is seen containing thickened internal septations. Left kidney normal size and echotexture, 11.3 cm length. 1.7 cm anechoic simple left renal cyst is present. No hydronephrosis of either kidney. IMPRESSION: 1. Complex 2.3 cm right renal cyst containing thickened internal septations. Recommend CT or MRI renal mass protocol for further evaluation. 2. 1.7 cm simple left renal cyst. This document has been electronically signed by: Noemi Aguilar on 04/19/2025 08:59:23
--- NOTE | ~2025-04-18 | CT_ITS ---
CLINICAL HISTORY: N40.1 - Benign prostatic hyperplasia with lower urinary tract symptoms CT abdomen and pelvis with and without contrast Comparison: CT - CT ABDOMEN PELVIS WO/W IV CON - 04/18/25 14:02 EDT Findings: The lung bases are clear. Unremarkable gallbladder and solid organs. No urolithiasis. No bowel obstruction, pneumoperitoneum, or pneumatosis. Pelvic contents unremarkable. Prostate is enlarged. Normal appendix. The bones are intact. IMPRESSION: No acute findings. This document has been electronically signed by: Jennifer Barry MD on 04/19/2025 13:41:02
--- OUTSIDE RECORDS SUMMARY | 2025-04-18 07:33 | XMS_ITS | Clinical Summary ---
Author Organization [facility] Address [address] [place] [address] Phone Care Team Providers Care Field Operations Technician Name Role Phone Jennifer Quiroz MD Primary [...] Diagnosed Date Pulmonary emphysema (CMS/HCC V24, [facility] V28) 0 01/04/2024 Essential hypertension 01/04/2024 HLD (hyperlipidemia) 01/04/2024 Enlarged prostate without lo wer urinary tract symptoms (luts) 01/04/2024 Rheumatoid arthritis ([facility] V24, [facility] V28) 01/04/2024 CAD (coronary atherosclerotic disease) 6 [...] atherosclerotic disease); COMMENT: with stents Pulmonary emphysema ([facility] V24, [facility] V28) DX:Pulmonary emphysema (HCC) History of elevated [...] Result * Falls Risk Assessment (01/04/2024) Pathologist [facility] Falls Risk Assessment abstracted Historical Provider HEALTH MAINTENANCE Final Result * Depression Screening (01/04/2024) Pathologist [facility] Depression Screening abstracted Historical Provider HEALTH MAINTENANCE Final Result * CT LUNG SCREENING LOW DOSE (10/11/2023 4:23 AM EST) Anatomical Region Laterality Modality Computed Tomogra phy 09/30/2023 7:43 AM EST Narrative 10/11/2023 4:[address] [facility] Diagnostic Imaging Department [address] [place] [address] Patient: SEDRICK HOWE /Age/Sex: 1955 - 68 - M Unit#: [id number] Location/Status: SPDICATLS/REG CLI Mnemonic/Ordering Site: [facility] Ordering Physician: TREVON DONATO MD CT Lung Screening Low Dose - 09/30/2395 Report Status:Signed Indication: Greater than 20 total pack-year smoking history, asymptomatic former smoker Technique: Low-dose CT scan of the chest obtained as a lung cancer screening study. Multiplanar reformatted images were obtained. Dose reduction technique: ASIR (Adaptive statistical iterative reconstruction) and/or AEC (automated exposure control) COMPARISON: September 2022. FINDINGS: Lack of intravenous contrast limits evaluation of the annabelle, vascular structures and visualized abdominal viscera. Lungs/airways: Trachea and central airways are patent. Bronchial wall thickening. Emphysematous changes. Lingular atelectasis. Biapical pleural- parenchymal scarring. Scattered sub-5 mm pulmonary nodules, similar to prior. Base of the neck, mediastinum, heart, chest wall, vessels: The assessment of hilar lymphadenopathy is difficult without the use of IV contrast. No enlarged mediastinal lymphadenopathy. Thoracic aortic and coronary artery [...] with LDCT in 12 months. Dictating Physician: ALEX MALIN MD Electronically Signed by: ALEX MALIN MD Dic Date/Time: 10/11/23418 Sign date/Time: 10/11/23422 Procedure Note Alex Malin MD - 11/30/2023 [facility] Diagnostic Imaging Department [address] [place] [address] Patient: SEDRICK HOWE Derrell LockeB./Age/Sex: 1955 - 68 - M Unit#: [id number] [facility] Mnemonic/Ordering Site: [facility] Ordering Physician: TREVON DONATO MD CT Lung Screening Low Dose - 09/30/23 - 746 Report Status:Signed Indication: Greater than 20 total [...] MD Dic Date/Time: 10/11/239 Sign date/Time: 10/11/[address] [facility] CT PROCEDURES Final Result * Colonoscopy (09/14/2019) Colonoscopy no interpretation , abstracted Anatomical Region Laterality Modality Other Historical Provider HEALTH MAINTENANCE Final Result from Last 3 Months or Most Recently Relevant to Health Maintenance Insurance [employer] Care Teams Field Operations Technician Relationship Specialty Start Date End Date Jennifer Quiroz MD [address] [place] [id number] PCP - General Internal Medicine 10/04/24
[2025-04-18 10:39] LABS: Estimated Average Glucose 126 mg/dL; Hemoglobin A1C 148.5528 umol/L
[2025-04-18 10:43] LABS: Alanine Aminotransferase 21 U/L (0-40); Albumin Level 4.4 g/dL (3.5-5.0); Alkaline Phosphatase 93 U/L (39-117); Anion Gap 13 (12-20); Aspartate Amino Transferase 28 U/L (5-37); Bilirubin Total 0.6 mg/dL (0.0-1.0); Blood Urea Nitrogen 20 mg/dL (9-16); Calcium 9.9 mg/dL (8.4-10.2); Carbon Dioxide 25 mmol/L (22-29); Chloride 106 mmol/L (96-108); Estimated Glomerular Filt Rate > 60; Glucose Fasting 95 mg/dL (60-99); Potassium 4.4 mmol/L (3.3-5.1); Sodium 140 mmol/L (135-145); Total Protein 7.1 g/dL (6.5-8.0)
[2025-04-18] MEDS: iohexoL 350 MG/ML 100 ML INFUS..BTL IV (14:16)
[2025-04-19 10:09] LABS: Lyme Abs Screen <0.90 index
== END 2025-04-18 07:31 | disposition home or self-care (01) ==
LOC: HO.US 07:30
PROVIDERS: PCP Family Medicine; Referring Provider Family Medicine; Visit Provider Urology
DX: R73.01 Impaired fasting glucose (principal); R73.03 Prediabetes; N40.1 Benign prostatic hyperplasia with lower urinary tract symptoms; R33.9 Retention of urine, unspecified; Z00.00 Encounter for general adult medical examination without abnormal findings; W57.XXXA Bitten or stung by nonvenomous insect and other nonvenomous arthropods, initial encounter
CPT/HCPCS: 36415; 74178; 76775; 80053; 83036; 86617; 86618; Q9967

== ENCOUNTER → 2025-04-18 13:06 | Outpatient (BNV) | payer MEDICARE, SELFPAY | PROVIDERS: PCP Family Medicine; Referring Provider Family Medicine; Visit Provider Radiology Vascular & Interventional Radiology | DX: N40.1 Benign prostatic hyperplasia with lower urinary tract symptoms (principal) | CPT/HCPCS: 74178; 76775 ==

== ENCOUNTER 2025-05-07 15:34 | Outpatient (AMB) | payer MEDICARE, SELFPAY ==
--- NOTE | 2025-05-07 15:35 | MHC.OFFVIS ---
Intake Visit Reasons: CT/US Intake Note: Patient is present for CT/US follow up 04/19 Renal US 04/19 Abdomen/Pelvis CT Urology Medication:TAMSULOSIN Antibiotic Allergy:NONE Blood Thinner:NONE Senior Environmental Consultant Required: No Allergies codeine Allergy (Intermediate, Verified 06/21/25 08:47) Headache HPI Comments Details: 05/07/25 History of Present Illness - The patient is a 69-year-old male presenting with evaluation of a renal cyst and management of prostate enlargement. - A 2.3 cm cyst was identified in the right kidney, which was evaluated through a CT scan. - The CT scan indicated that the cyst is benign, with no solid components or suspicious lesions. - The patient is currently taking tamsulosin for prostate enlargement. - The last PSA test was conducted in August 2024, showing a normal level of 3.16. - It is planned to repeat the PSA test in six months for ongoing monitoring. Plan - Continue tamsulosin for prostate enlargement management. - Schedule a repeat PSA test in six months for monitoring. - Consider a follow-up ultrasound in one year to monitor the renal cyst, although not mandatory for benign cysts. Results - CT scan: 2.3 cm benign cyst in the right kidney, no solid components or suspicious lesions. - PSA test: Normal level of 3.16 in August 2024. 03/01/25--69-year-old male presenting with benign prostatic hyperplasia (BPH) for follow-up. Treatments have included dutasteride and tamsulosin, leading to decreased nocturnal urinary frequency. He occasionally notes increased urination during the day, often correlated with high fluid consumption like coffee. Ultrasound findings revealed complex cystic lesions kidney and prostate. Plan to further evaluate the noted cysts, a CT scan Abd/pelvis with and without IV contrast. PSA monitoring. Continuation of the current dutasteride and tamsulosin regimen, given its efficacy for this patient's urinary symptoms, is confirmed. Urinary Symptoms Review - Decreased frequency of nocturnal urination with current medications - Increased daytime urination associated with high fluid intake, particularly coffee - No reports of discomfort, pain, or incontinence - No urinary hesitancy Results - Ultrasound Report (12/26/24): - Prostate: 2.1 x 2.2 cm complex cystic lesion, - Left Kidney: 0.7 cm complex cystic lesion - No urolithiasis noted 11/13/24--Jorge is a 69-year-old male who is here for evaluation due to enlarged prostate and incomplete bladder emptying. The patient states he gets up 1-3 times at night to urinate. He denies irritative voiding symptoms. He admits to drinking a lot of coffee throughout the day about 32 oz. He states he drinks decaffeinated coffee. I have discussed cutting back on coffee intake to about 12 oz. Reviewed PSA lab results with the patient which is within normal limits. Bladder scan PVR today is 187 mL. He is on tamsulosin daily, I have discussed adding Avodart 0.5 mg daily. Will check ultrasound retroperitoneal follow-up in 4 months PSA-09/13/2024--3.13 ng mL PFS Medical History (Updated 06/21/25 @ 08:58 by HARRY Parks) Screening for prostate cancer Acquired complex renal cyst Umbilical mass Screening for colon cancer CAD (coronary artery disease) Stented coronary artery Hypertension Hyperlipidemia Pre-diabetes BPH loc w urin obs/LUTS Personal history of nicotine dependence Surgical History (Updated 06/21/25 @ 08:54 by GENTRY Ayon) History of colonoscopy History of surgery on wrist History of umbilical hernia repair History of heart artery stent Social History Housing: House Patient Tobacco Use Status: Current someday Tobacco user Years Smoked: (onset 16yo, 1ppd x 42yrs, 40pyh - quit 2013) e-Cigarette/Vaping Use: Never Used service: No Current occupational status: retired Current occupational exposures/hazards: No Cognitive needs: No Hearing needs: No Vision needs: Yes Review of Systems Const All systems reviewed & are unremarkable except as noted in HPI and below Reports no additional complaints Eyes Reports no additional complaints ENT Reports no additional complaints Card Reports no additional complaints Resp Reports no additional complaints GI Reports no additional complaints Reports as per HPI Musc Reports no additional complaints Skin/Breast Reports system reviewed and no additional complaints, except as documented Neuro Reports no additional complaints Psych Reports no additional complaints Endo Reports no additional complaints Randell/Lymph Reports no additional complaints Aller/Immun Reports no additional complaints Telehealth Telehealth Telehealth Platform: Telephone Location of provider rendering services: practice address Location of patient: address on file Patient Identification confirmed using: Name, : Yes Telehealth method: voice only Patient verbally consented to treatment: Yes Patient verbally consented to billing insurance company: Yes Patient informed of any privacy concerns related to visit: Yes Minutes spent on Phone/Video with Pt.: 13 Assessment & Plan Assessment & Plan (1) Acquired complex renal cyst: Code(s): N28.1 - Cyst of kidney, acquired Category: Medical (2) Bilateral renal cysts: Code(s): N28.1 - Cyst of kidney, acquired Category: Medical (3) BPH loc w urin obs/LUTS: Code(s): N40.1 - Benign prostatic hyperplasia with lower urinary tract symptoms Category: Medical Plan Plan - Continue tamsulosin for prostate enlargement management. - Schedule a repeat PSA test in six months for monitoring. - Consider a follow-up ultrasound in one year to monitor the renal cyst, although not mandatory for benign cysts. Orders: Orders US renal BI 11 Months N28.1 - Cyst of kidney, acquired Patient Instructions: The patient had an opportunity to ask questions regarding treatment plan. The patient expressed understanding and agreement with the above treatment plan. The patient is aware they should contact our office by phone for worsening of their current condition or the appearance of new symptoms. Compliance is encouraged with any medications and followup testing that is ordered. It is a privilege to be allowed the opportunity to participate in the urologic care of your patient. If you have any questions or concerns regarding treatment for the above conditions please do not hesitate to contact me. The office telephone contact is [phone]. This note is constructed in part using voice recognition software. While every effort has been made to ensure accuracy salesperson trailers and motor homes errors may have been included. Yours sincerely, Osiris Oreilly MD Scribe Plan - Not visible on output: Patient was informed and verbally consented to the use of an ambient scribe for clinic note documentation during this visit. Coding Level of Care Code Tele Est Pt Level 4 (45509) Diagnoses Acquired complex renal cyst N28.1 Bilateral renal cysts N28.1 BPH loc w urin obs/LUTS N40.1
--- OUTSIDE RECORDS SUMMARY | 2025-05-07 16:45 | XMS_ITS | Clinical Summary ---
Author Organization [facility] Address [address] [place] [address] Phone Care Team Providers Care Java Development Team Lead Name Role Phone Jennifer Quiroz MD Primary [...] Date Diagnosed Date Pulmonary emphysema ([place]24, [facility] [place] 0 01/04/2024 Essential hypertension 01/04/2024 HLD (hyperlipidemia) 01/04/2024 Enlarged prostate without lo wer urinary tract symptoms (luts) 01/04/2024 Rheumatoid arthritis [place] [place] [facility] [place]) 01/04/2024 CAD (coronary atherosclerotic disease) 6 [...] atherosclerotic disease); COMMENT: with stents Pulmonary emphysema ([facility] V24, [facility] V28) DX:Pulmonary emphysema (HCC) History of [...] BMP Blood Test 01/04/2025 01/05/2024 Influenza Vaccine (#1) 2025 , 07/27/2023, 07/17/2022, Additional history exists Cholesterol Screening [...] Result * Falls Risk Assessment (01/04/2024) Pathologist [facility] Falls Risk Assessment abstracted Historical Provider HEALTH MAINTENANCE Final Result * Depression Screening (01/04/2024) Pathologist [facility] Depression Screening abstracted Historical Provider HEALTH MAINTENANCE Final Result * CT LUNG SCREENING LOW DOSE (10/11/2023 4:23 AM EST) Anatomical Region Laterality Modality Computed Tomogra phy 09/30/2023 7:43 AM EST Narrative 10/11/2023 4:23 AM EST [facility] Diagnostic Imaging Department [address] [place] [address] Patient: SEDRICK HOWE /Age/Sex: 1955 - 68 - M Unit#: [id number] Location/Status: SPDICATLS/REG CLI Mnemonic/[place] [facility] Ordering Physician: TREVON DONATO MD CT Lung Screening Low Dose - 09/30/2314 Report Status:Signed Indication: Greater than 20 total [...] with LDCT in 12 months. Dictating Physician: AELX MALIN MD Electronically Signed by: ALEX MALIN MD Dic Date/Time: 10/11/23418 Sign date/Time: 10/11/23422 Procedure Note Alex Malin MD - 11/30/2023 [facility] Diagnostic Imaging Department [address] [place] [address] Patient: SEDRICK HOWE Derrell LockeB./Age/Sex: 1955 - 68 - M Unit#: [id number] [facility] CLI Mnemonic/Ordering Site: [facility] Ordering Physician: TREVON DONATO MD CT [...] 10/11/239 Sign date/Time: 10/11/23422 Trevon Donato MD [facility] [place] PROCEDURES Final Result * Colonoscopy (09/14/2019) Colonoscopy no interpretation , abstracted Anatomical Region Laterality Modality Other Historical Provider HEALTH MAINTENANCE Final Result from Last 3 Months or Most Recently Relevant to Health Maintenance Insurance [employer] Care Teams Java Development Team Lead Relationship Specialty Start Date End Date Jennifer Quiroz MD [address] [place] [phone] PCP - General Internal Medicine 10/04/24
== END 2025-05-07 16:38 | disposition home or self-care (01) ==
LOC: HO.HUSH 15:34
PROVIDERS: PCP Family Medicine; Visit Provider Urology
DX: N28.1 Cyst of kidney, acquired (principal); N40.1 Benign prostatic hyperplasia with lower urinary tract symptoms
CPT/HCPCS: 99214

== ENCOUNTER 2025-06-21 08:41 | Outpatient (AMB) | payer OTHER, SELFPAY ==
--- NOTE | 2025-06-21 08:44 | A.OFFVIS_ITS ---
Vital Signs 3 06/21/25 08:47 Height 5 ft 10 in Weight 150 lb BMI 21.5 BP 142/64 H Blood Pressure Location Lt brachial Position Sitting Pulse 58 Pulse Source Pulse Oximeter Pulse Oximetry (%) 94 Oxygen Delivery Method Room Air Intake Visit Reasons: [place] screening/ Anemia Intake Note: New pt for recall colo screening + anemia eval. CC: Pt denies any GI sx or concerns at this time. Last colo ~ 10 years ago per pt. Library Clerical Assistant Required: No Accompanied by: Self / Same As Patient Allergies codeine Allergy (Intermediate, Verified 06/21/25 08:47) Headache HPI HPI [place] screening/ Anemia: Details: 69-year-old male here for preprocedural meeting to discuss a screening colonoscopy. He is referred by Paulie Her. PMX Hypertension High cholesterol Pre diabetes Coronary artery disease Rheumatoid arthritis BPH Constipation * SURGICAL HISTORY Wrist surgery thumb OA bilaterally Umbilical hernia repair Cardiac stent x 3 * ALLERGIES Codeine * World Blender LABS: Laboratory Tests 03/06/25 04/18/25 07:30 07:37 WBC 6.8 RBC 4.29 L Hgb 12.7 L Hct 39.5 L MCV 92.1 MCH 29.6 Plt Count 312 Estimated GFR > 60 Ferritin 277 H Total Bilirubin 0.6 AST 28 ALT 21 Alkaline Phosphatase 93 TODAY'S VISIT He had a prior colonoscopy about 10 years ago and e remembers a small polyp. He denies any bowel or upper GI problems. There are no prior problems with anesthesia or sedation. He denies any resp problems and his cardiac conditions is well controlled. No ID polyps. He may have a polyp 10 years ago and there is no known FHX crc or polyps. Patient is asymptomatic for anemia. He has no trouble with his daily activities and even hikes and climbs ladders without difficulty. He occasionally has dizziness which he attributes to his methotrexate. Looking at his CBC given that he has a normocytic normochromic anemia with an elevated ferritin I do not see any reason to do an upper GI as this is not the pattern of blood loss. This is most likely either thalassemia or an anemia of chronic inflammation. Chronic inflammation is favored given the patient's rheumatoid arthritis. I advised the patient against oral iron supplementation given the elevated ferritin which could be damaging to his liver. I suggest that he continue his current lifestyle it if he ever develops symptoms he is welcome to return to our office or report this to his primary care provider. However, if he becomes symptomatic in the absence of heme-positive stools or melena a referral to Hematology maybe of preferred diagnostic pathway. [facility] Medical History (Updated 06/21/25 @ 08:58 by HARRY Parks) Screening for prostate cancer Acquired complex renal cyst Umbilical mass Screening for colon cancer CAD (coronary artery disease) Stented coronary artery Hypertension Hyperlipidemia Pre-diabetes BPH loc w urin obs/LUTS Personal history of nicotine dependence Surgical History (Updated 06/21/25 @ 08:54 by Akash Bernal [facility]) History of colonoscopy History of surgery on wrist History of umbilical hernia repair History of heart artery stent Social History Housing: House Patient Tobacco Use Status: Current someday Tobacco user Years Smoked: (onset 16yo, 1ppd x 42yrs, 40pyh - quit 2013) e-Cigarette/Vaping Use: Never Used service: No Current occupational status: retired Current occupational exposures/hazards: No Cognitive needs: No Hearing needs: No Vision needs: Yes Review of Systems Const Denies fatigue, Denies fever(s), Denies night sweats, Denies poor appetite and Denies weight loss Eyes Details: glasses Reports requires corrective lenses ENT Reports Normal hearing present, Denies dental pain, Denies dysphagia, Denies hearing loss, Denies mouth pain, Denies odynophagia, Denies throat swelling, Denies tongue swelling and Reports other (Dentition adequate) Card Reports no additional complaints Resp Reports no additional complaints GI Details: Denies abdominal pain, Denies melena, Denies bloating, Denies hematochezia, Denies constipation, Denies GI cramping, Denies dysphagia, Denies excessive flatus, Denies early satiety, Denies heartburn, Denies diarrhea, Denies nausea, Denies odynophagia, Denies vomiting and Denies hematemesis Skin/Breast Denies pruritus, Denies lesions, Denies rash and Denies jaundice Neuro Reports Normal hearing present and Denies Abnormal speech present Endo Denies fatigue Aller/Immun Denies throat swelling and Denies tongue swelling Physical Exam Const General: cooperative, no acute distress, well developed and well groomed Nutritional Appearance: well nourished and thin Orientation/consciousness: oriented to person, oriented to place and oriented to time Limitations: No language barrier HEENT Head: Yes normocephalic and Yes atraumatic Eyes General: appearance normal, both eyes and all related structures Pupils: Equal, round and reactive pupils present Neck Neck: Yes normal visual inspection and Yes no lymphadenopathy Thyroid: Thyroid normal Resp Effort & Inspection: normal respiratory effort and able to speak in complete sentences Auscultation: clear to auscultation bilaterally Cardio Rate: regular rate Rhythm: regular rhythm Heart sounds: Normal, physiologic split S2 sound present Peripheral pulses: radial pulses present and posterior tibial pulses present GI Inspection: No distended and No Abdominal panniculus present Palpation (GI): Soft to palpation, nontender, no guarding, not rigid and No hepatosplenomegaly present Percussion: Yes normal to percussion Auscultation: normal bowel sounds Rectal Exam - Male: Yes deferred Abdomen image: 2 1. surgical scar Skin General skin exam: no rashes or lesions noted, turgor normal, skin not dry, no jaundice, No spider nevi and no striae Rashes: no rashes Nails: normal Neuro General: oriented to person, oriented to place and oriented to time Cranial nerves: Yes Equal, round and reactive pupils present and Yes Normal hearing present Speech: No Abnormal speech present Extrem General: Yes normal to inspection, No clubbing, No cyanosis and No edema Psych Appearance: grossly normal and well kempt Mental Status: mental status grossly normal Speech and movement: Normal speech and movement present Affect: normal affect Attitude: cooperative Thought process: Normal thought process present and not confabulating Thought content: Normal thought content present Insight: Good insight present (Psych) Judgement: Good judgement present (Psych) Assessment & Plan Assessment & Plan (1) Pre-op examination: Code(s): Z01.818 - Encounter for other preprocedural examination Category: Medical (2) Anemia of chronic disease: Code(s): D63.8 - Anemia in other chronic diseases classified elsewhere Category: Medical (3) Rheumatoid arthritis: Code(s): M06.9 - Rheumatoid arthritis, unspecified Category: Medical Plan He had a prior colonoscopy about 10 years ago and e remembers a small polyp. He denies any bowel or upper GI problems. There are no prior problems with anesthesia or sedation. He denies any resp problems and his cardiac conditions is well controlled. No ID polyps. He may have a polyp 10 years ago and there is no known FHX crc or polyps. Patient is asymptomatic for anemia. He has no trouble with his daily activities and even hikes and climbs ladders without difficulty. He occasionally has dizziness which he attributes to his methotrexate. Looking at his CBC given that he has a normocytic normochromic anemia with an elevated ferritin I do not see any reason to do an upper GI as this is not the pattern of blood loss. This is most likely either thalassemia or an anemia of chronic inflammation. Chronic inflammation is favored given the patient's rheumatoid arthritis. I advised the patient against oral iron supplementation given the elevated ferritin which could be damaging to his liver. I suggest that he continue his current lifestyle it if he ever develops symptoms he is welcome to return to our office or report this to his primary care provider. However, if he becomes symptomatic in the absence of heme-positive stools or melena a referral to Hematology maybe of preferred diagnostic pathway Orders: Orders 2 Colonoscopy - GI Use Only Today Z01.818 - Encounter for other preprocedural examination Medications: New 2 peg 3350-electrolytes 236-22.74-6.74 -5.86 gram (Golytely) until fecal effluent is clear; do not exceed a total volume of 2,000 mL 240 mL PO Q10M 4,000 mL 0RF 1 day Z12.11 - Encounter for screening for malignant neoplasm of colon bisacodyl (Dulcolax (bisacodyl)) 10 mg (2 x 5 mg) PO BEDTIME 4 tabs 0RF 2 days Coding Level of Care Code New Pt Level 3 (31482) Diagnoses Pre-op examination Z01.818 Anemia of chronic disease D63.8 Rheumatoid arthritis M06.9
[2025-06-21 08:47] VITALS: BP 142/64; PULSE 58; O2SAT 94; BMI 21.5
--- OUTSIDE RECORDS SUMMARY | 2025-06-21 09:23 | XMS_ITS | Clinical Summary ---
Author Organization [facility] Address [address] [place] [address] Phone Care Team Providers Care Pizza Maker Name Role Phone Jennifer Quiroz MD Primary [...] Date Diagnosed Date Pulmonary emphysema (CMS/HCC V24, [facility] [place]28) 0 01/04/2024 Essential hypertension 01/04/2024 HLD (hyperlipidemia) 01/04/2024 Enlarged prostate without lo wer urinary tract symptoms (luts) 01/04/2024 Rheumatoid arthritis ([facility] [place]24, [facility] V28) 01/04/2024 CAD (coronary atherosclerotic disease) 6 [...] atherosclerotic disease); COMMENT: with stents Pulmonary emphysema ([facility] V24, [facility] V28) DX:Pulmonary emphysema (HCC) History of [...] CT) 10/11/2024 10/11/2023, 09/25/2022, 09/24/2021 Depression Screening 10/25/2024 01/04/2024 Falls Risk Assessment 01/03/2025 01/04/2024 Hypertension/CHF/CAD [...] Result * Falls Risk Assessment (01/04/2024) Pathologist [facility] Falls Risk Assessment abstracted Historical Provider HEALTH MAINTENANCE Final Result * Depression Screening (01/04/2024) Pathologist [facility] Depression Screening abstracted Historical Provider HEALTH MAINTENANCE Final Result * CT LUNG SCREENING LOW DOSE (10/11/2023 4:23 AM EST) Anatomical Region Laterality Modality Computed Tomogra phy 09/30/2023 7:43 AM EST Narrative 10/11/2023 4:23 AM EST [facility] Diagnostic Imaging Department [address] [place] [address] Patient: SEDRICK HOWE /Age/Sex: 1955 - 68 - M Unit#: [id number] Location/Status: SPDICATLS/REG CLI Mnemonic/Ordering Site[facility] Ordering Physician: TREVON DONATO MD CT Lung Screening Low Dose - 09/30/2354 Report Status:Signed Indication: Greater than 20 total [...] Procedure Note Alex Malin MD - 11/30/2023 [facility] Diagnostic Imaging Department [address] [place] [address] Patient: SEDRICK HOWE Derrell LockeB./Age/Sex: 1955 - 68 - M Unit#: [id number] [facility] CLI Mnemonic/Ordering Site: [facility] Ordering Physician: [...] 10/11/239 Sign date/Time: 10/11/23422 Trevon Donato MD [facility] [place]ED[place] Final Result * Colonoscopy (09/14/2019) Colonoscopy no interpretation , abstracted Anatomical Region Laterality Modality Other Historical Provider HEALTH MAINTENANCE Final Result from Last 3 Months or Most Recently Relevant to Health Maintenance Insurance [employer] Care Teams Pizza Maker Relationship Specialty Start Date End Date Jennifer Quiroz MD [address] [place] [phone] PCP - General Internal Medicine 10/04/24
== END 2025-06-21 09:23 | disposition home or self-care (01) ==
LOC: HO.HGI 08:41
PROVIDERS: PCP Family Medicine; Visit Provider Nurse Practitioner
DX: Z01.818 Encounter for other preprocedural examination (principal); Z12.11 Encounter for screening for malignant neoplasm of colon; D64.9 Anemia, unspecified; M06.9 Rheumatoid arthritis, unspecified
CPT/HCPCS: 99203

== ENCOUNTER 2025-07-02 06:46 | Outpatient (REF) | payer OTHER, SELFPAY ==
--- OUTSIDE RECORDS SUMMARY | 2025-07-02 06:49 | XMS_ITS | Encounter Summary ---
Author Organization [facility] Address [address] [place] [address] Phone Care Team Providers Care Assistant Press Operator Name Role Phone Akash Schulz PA-C Primary Care Provider [phone] Vaughn Reyes MD Unavailable [phone] Layne Heller Primary Care Provider [phone] Ayaka French CIGAR WRAPPER TENDER AUTOMATIC Primary Care Provi larry Unavailable Magali Maxwell NP Primary Care Provider [phone] Encounter Details Date Type Department Care Team (Late st Contact Info) Description 07/05/2018 Ancillary Orders [address] [address] Magali Goodman PA-C [address] [place] [address] Orthopedics & Sports Medicine, [facility] [place] [address] [email or web address] Finger pain, left Social History Tobacco Use Types Packs/Day Years Used Date Smoking Tobacco: Former Cigarettes Q uit: 2013 Smokeless Tobacco: Never Alcohol Use Standard Drinks/Week Comments Yes 1 (1 standard drink = 0.6 oz pur e alcohol) socially Sex and Gender Information Value Date Recorded Sex Assigned at Not on file Legal Sex Male 9:58 PM EDT Gender Identity Not on file Sexual Orientation Not on file documented as of this encounter Plan of Treatment Not on file documented as of this encounter Results * XR FINGER THUMB (LEFT) (07/05/2018 10:00 AM EDT) Narrative Carrol Harman - 07/05/2018 10:00 AM EDT This image report has been auto-finalized and has not been read by a Radiologist. Interpretation has been included in the provider encounter note for this date of service. Magali Austinfranco ODONNELL IMG XR UPPER EXTREMI TY Final Result documented in this encounter Visit Diagnoses Diagnosis Finger pain, left Pain in soft tissues of limb Finger pain, left Pain in soft tissues of limb documented in this encounter Care Teams Assistant Press Operator Relationship Specialty Start Date End Date Akash Schulz PA-C [address] [place] [address] 1 [place] [address] PCP - General 09/21/17 09/13/19 Layne Heller PA [address] [place] [address] 234 [place] [address] PCP - General Unknown Provider Specialty 09/14/19 06/14/22 Ayaka French NP PCP - General Family Medicine 06/15/22 10/12/22 Magali Maxwell NP [address] [facility] 204 [place] [address] PCP - General Family Medicine 10/13/22 Vaughn Reyes MD [address] [place] [phone] [email or web address] Assigned Provider 01/22/18 01/28/19 documented as of this encounter Additional Source Comments The information contained in this document represents components of the legal health record. It is not the complete legal health record.[facility]
--- OUTSIDE RECORDS SUMMARY | 2025-07-02 06:49 | XMS_ITS | Encounter Summary ---
Author Organization [facility] Address [address] [place] [address] Phone Care Team Providers Care Web Feeder Name Role Phone Akash Schulz PA-C Primary Care Provider [phone] Vaughn Reyes MD Unavailable [phone] Layne Heller Primary Care Provider Ayaka French MINERAL RESOURCES INSPECTOR Primary Care Provi larry Unavailable Magali Maxwell NP Primary Care Provider [phone] Encounter Details Date Type Department Care Team (Latest Contact Info) Description 09/21/2017 Prep for Surgery [facility] Orthopedics & Sports Medicine [address] [place] [address] Viry Mccabe MD [address] [place] [address] Orthopedics & Sports Medicine, [facility] [place] [address] Arthritis of carpometacarpal (CMC) joints of both thumbs (Primary Dx) Social History Tobacco Use Types Packs/Day Years [...] on file documented as of this encounter Visit Diagnoses Diagnosis Arthritis of carpometacarpal (CMC) joints of both thumbs- Primary documented in this encounter Care Teams Web Feeder Relationship Specialty Start Date End Date Akash Schulz PA-C [address] [place] [address] [address] [place] [address] PCP - General 09/21/17 09/13/19 Layne Heller PA [address] [place] [address] 234 [place] [address] PCP - General Unknown Provider Specialty 09/14/19 06/14/22 Ayaka French NP PCP - General Family Medicine 06/15/22 10/12/22 Magali Maxwell NP [address] [place] [address] PCP - General Family Medicine 10/13/22 Vaughn Reyes MD [address] [place] [phone] [email or web address] Insurance Assigned Provider 01/22/18 01/28/19 documented as of this encounter Additional Source Comments The information contained in this document represents components of the legal health record. It is not the complete legal health record.[facility]
--- OUTSIDE RECORDS SUMMARY | 2025-07-02 06:49 | XMS_ITS | Encounter Summary ---
Author Organization [facility] Address [address] [place] [address] Phone Care Team Providers Care Telescope Operator Name Role Phone Layne Heller Primary Care Provider Ayaka French COMMUNICATIONS SUPERINTENDENT Primary Care Provi larry [facility] Magali Maxwell COMMUNICATIONS SUPERINTENDENT Primary Care Provider [phone] Encounter Details Date Type Department Care Team (Late st Contact Info) Description 09/14/2019 Procedure Pass [facility] Endoscopy Admitting Dept Virtual Department [address] [place] [address] Social History Tobacco Use Types Packs/Day Years Used Date Smoking Tobacco: Former Cigarettes Q uit: 2013 Smokeless Tobacco: Never Alcohol Use Standard Drinks/Week Comments Yes 1 (1 standard drink = 0.6 oz pur e alcohol) 2 drinks weekly Sex and Gender Information Value Date Recorded Sex Assigned at Not on file Legal Sex Male 9:58 PM EDT Gender Identity Not on file Sexual Orientation Not on file documented as of this encounter Plan of Treatment Not on file documented as of this encounter Visit Diagnoses Not on filedocumented in this encounter Care Teams Telescope Operator Relationship Specialty Start Date End Date Layne Heller PA [address] [place] [address] PCP - General Unknown Provider Specialty 09/14/19 06/14/22 Ayaka French NP PCP - General Family Medicine 06/15/22 10/12/22 Magali Maxwell NP [address] [address] [place] [address] PCP - General Family Medicine 10/13/22 documented as of this encounter Additional Source Comments The information contained in this document represents components of the legal health record. It is not the complete legal health record.[facility]
--- OUTSIDE RECORDS SUMMARY | 2025-07-02 06:49 | XMS_ITS | Encounter Summary ---
Author Organization [facility] Address [address] [facility] [address] [place] [address] Phone Care Team Providers Care Guest Services Officer Name Role Phone Akash Schulz PA-C Primary Care Provider [phone] Vaughn Reyes MD Unavailable [phone] Layne Heller Primary Care Provider Ayaka French LAW SECRETARY Primary Care Provi larry Unavailable Magali Maxwell NP Primary Care Provider [phone] Encounter Details Date Type Department Care Team (Late st Contact Info) Description 10/13/2017 Procedure Pass [place] Admitting Dept - Virtual Department [address] [place] [address] Social History Tobacco Use Types Packs/Day Years [...] on filedocumented in this encounter Care Teams Guest Services Officer Relationship Specialty Start Date End Date Akash Schulz PA-C [address] [facility] [address] [place] [address] PCP - General 09/21/17 09/13/19 Layne Heller PA [address] [facility] 234 [place] [address] PCP - General Unknown Provider Specialty 09/14/19 06/14/22 Ayaka French NP PCP - General Family Medicine 06/15/22 10/12/22 Magali Maxwell NP 185 [facility] 204 [place] [address] PCP - General Family Medicine 10/13/22 Vaughn Reyes MD [address] [place] [phone] [email or web address] Insurance Assigned Provider 01/22/18 01/28/19 documented as of this encounter Additional Source Comments The information contained in this document represents components of the legal health record. It is not the complete legal health record.[facility]
--- OUTSIDE RECORDS SUMMARY | 2025-07-02 06:49 | XMS_ITS | Encounter Summary ---
Author Organization [facility] Address [address] [place] [address] Phone Care Team Providers Care Impersonator Character Name Role Phone Akash Schulz PA-C Primary Care Provider [phone] Vaughn Reyes MD Unavailable [phone] Layne Heller Primary Care Provider Ayaka French SEGMENT PRODUCER Primary Care Provi larry Unavailable Magali Maxwell NP Primary Care Provider [phone] Encounter Details Date Type Department Care Team (Late st Contact Info) Description 10/21/2017 Ancillary Orders [facility] Orthopedics & Sports Medicine [address] [place] [address] Magali Goodman PA-C [address] [place] [address] Orthopedics & Sports Medicine, [facility] [place] [address] [email or web address] Social History Tobacco Use Types Packs/Day Years [...] on filedocumented in this encounter Care Teams Impersonator Character Relationship Specialty Start Date End Date Akash Schulz PA-C [address] [place] [address] [address] [place] [address] PCP - General 09/21/17 09/13/19 Layne Heller PA [address] [place] [address] 234 [place] [address] PCP - General Unknown Provider Specialty 09/14/19 06/14/22 Ayaka French NP PCP - General Family Medicine 06/15/22 10/12/22 Magali Maxwell NP [address] [place] [address] PCP - General Family Medicine 10/13/22 Vaughn Reyes MD [address] [place] [phone] Insurance Assigned Provider 01/22/18 01/28/19 documented as of this encounter Additional Source Comments The information contained in this document represents components of the legal health record. It is not the complete legal health record.[facility]
--- OUTSIDE RECORDS SUMMARY | 2025-07-02 06:49 | XMS_ITS | Encounter Summary ---
Author Organization [facility] Address [address] [facility] [address] [facility] [address] [place] [address] Phone Care Team Providers Care Book Sewer Name Role Phone Akash Schulz PA-C Primary Care Provider [phone] Vaughn Reyes MD Unavailable [phone] Layne Heller Primary Care Provider Ayaka French SVP RESEARCH AND STRATEGIC ANALYSIS Primary Care Provi larry Unavailable Magali Maxwell NP Primary Care Provider [phone] Encounter Details Date Type Department Care Team (Late st Contact Info) Description 06/22/2018 Procedure Pass [place] Admitting Dept - Virtual Department 30 [place] [address] Social History Tobacco Use Types Packs/Day Years [...] on filedocumented in this encounter Care Teams Book Sewer Relationship Specialty Start Date End Date Akash Schulz PA-C [address] [facility] [address] [place] [address] PCP - General 09/21/17 09/13/19 Layne Heller PA [address] [facility] 234 [place] [address] PCP - General Unknown Provider Specialty 09/14/19 06/14/22 Ayaka French NP PCP - General Family Medicine 06/15/22 10/12/22 Magali Maxwell NP [address] [facility] 204 [place] [address] PCP - General Family Medicine 10/13/22 Vaughn Reyes MD [address] [place] [phone] [email or web address] Assigned Provider 01/22/18 01/28/19 documented as of this encounter Additional Source Comments The information contained in this document represents components of the legal health record. It is not the complete legal health record.[facility]
--- OUTSIDE RECORDS SUMMARY | 2025-07-02 06:49 | XMS_ITS | Encounter Summary ---
Author Organization [facility] Address [address] [place] [address] Phone Care Team Providers Care Machine Rigger Name Role Phone Akash Schulz PA-C Primary Care Provider [phone] Vaughn Reyes MD Unavailable [phone] Layne Heller Primary Care Provider Ayaka French HANDLE TURNER Primary Care Provi larry Unavailable Magali Maxwell NP Primary Care Provider [phone] Encounter Details Date Type Department Care Team (Late st Contact Info) Description 05/13/2018 Prep for Surgery [facility] Orthopedics & Sports Medicine [address] [place] [address] Viry Mccabe MD [address] [place] [address] Orthopedics & Sports Medicine, [facility] [place] [address] Social History Tobacco Use Types Packs/Day Years Used Date Smoking Tobacco: Former Cigarettes Q uit: 2014 Smokeless Tobacco: Never Alcohol Use Standard Drinks/Week [...] on filedocumented in this encounter Care Teams Machine Rigger Relationship Specialty Start Date End Date Akash Schulz PA-C [address] [place] [address] [address] [place] [address] PCP - General 09/21/17 09/13/19 Layne Heller PA [address] [place] [address] 234 [place] [address] PCP - General Unknown Provider Specialty 09/14/19 06/14/22 Ayaka French NP PCP - General Family Medicine 06/15/22 10/12/22 Magali Maxwell NP [address] [place] [address] PCP - General Family Medicine 10/13/22 Vaughn Reyes MD [address] [place] [phone] [email or web address] Insurance Assigned Provider 01/22/18 01/28/19 documented as of this encounter Additional Source Comments The information contained in this document represents components of the legal health record. It is not the complete legal health record.[facility]
--- OUTSIDE RECORDS SUMMARY | 2025-07-02 06:49 | XMS_ITS | Encounter Summary ---
Author Organization [facility] Address [address] [place] [address] Phone Care Team Providers Care Helpdesk Manager Name Role Phone Akash Schulz PA-C Primary Care Provider [phone] Vaughn Reyes MD Unavailable [phone] Layne Heller Primary Care Provider Ayaka French COURSE DEVELOPER Primary Care Provi larry Unavailable Magali Maxwell NP Primary Care Provider [phone] Encounter Details Date Type Department Care Team (Late st Contact Info) Description 10/21/2017 Ancillary Orders [address] [address] Magali Goodman PA-C [address] [place] [address] Orthopedics & Sports Medicine, [facility] [place] [address] [email or web address] Pain of finger, unspecified laterality Social History Tobacco Use Types Packs/Day Years [...] this encounter Results * XR FINGER THUMB (RIGHT) (10/26/2017 9:02 AM EST) Narrative Carrol Harman - 10/26/2017 9:02 AM EST This image report has been auto-finalized and has not been read by a Radiologist. Interpretation has been included in the provider encounter note for this date of service. Magali Sauceda Rex ODONNELL IMG XR UPPER EXTREMI TY Final Result documented in this encounter Visit Diagnoses Diagnosis Pain of finger, unspecified laterality Pain of finger, unspecified laterality documented in this encounter Care Teams Helpdesk Manager Relationship Specialty Start Date End Date Akash Schulz PA-C [address] [place] [address] 1 [place] [address] PCP - General 09/21/17 09/13/19 Layne Heller PA [address] [place] [address] 234 [place] [address] PCP - General Unknown Provider Specialty 09/14/19 06/14/22 Ayaka French NP PCP - General Family Medicine 06/15/22 10/12/22 Magali Maxwell NP [address] [place] [address] 204 [place] [address] PCP - General Family Medicine 10/13/22 Vaughn Reyes MD [address] [place] [phone] [email or web address] Insurance Assigned Provider 01/22/18 01/28/19 documented as of this encounter Additional Source Comments The information contained in this document represents components of the legal health record. It is not the complete legal health record.[facility]
--- OUTSIDE RECORDS SUMMARY | 2025-07-02 06:49 | XMS_ITS | Clinical Summary ---
Author Organization [facility] Address [address] [place] [phone] Phone Care Team Providers Care Test Specialist Name Role Phone Magali Maxwell NP Primary Care Provider Allergies Active Allergy Reactions Criticality Noted Date Comments Codeine Headaches 04/05/2017 Medications aspirin 81 MG EC tablet 1 tablet Active naproxen sodium (ALEVE) 220 MG tablet Take 220 mg by mouth 2 (two) times a day with meals. Active atorvastatin (LIPITOR) 80 MG tablet Take 1 tablet (80 mg total) by mouth daily. 90 tablet 3 10/07/20 18 Active lisinopril (PRINIVIL,ZESTRIL) 20 MG tabletIndications: Hyperlipidemia, unspecified hyperlipidemia type Take 1 tablet (20 mg total) by mouth daily. 90 tablet 3 10/23/20 19 Active ezetimibe (ZETIA) 10 mg tabletIndications: Hyperlipidemia, unspecified hyperlipidemia type Take 1 tablet (10 mg total) by mouth daily. 90 tablet 3 10/23/20 19 Active Additional Information Patient not taking.Reported on 11/23/2022 budesonide-formote rol (SYMBICORT) 160-4.5 mcg/actuation inhaler Inhale 2 puffs into the lungs 2 (two) times a day. Active tamsulosin (FLOMAX) 0.4 mg Cap TAKE 1 CAPSULE BY MOUTH EVERY DAY 30 MINUTES AFTER THE SAME MEAL Active cyanocobalamin/fol ic acid (VITAMIN X12-KNBWC ACID) 1,000-400 mcg Lozg 1 tablet. A ctive ascorbic acid, vitamin C, (VITAMIN C) 1000 MG tablet as directed. Active Active Problems Problem Noted Date Diagnosed Date Arthritis of carpometacarpal (CMC) joint of ariana taylor thumb 11/23/2017 Overview (11/23/2017): Arthroplasty with APL suspension 10/13/[address] Mccabe Coronary artery disease 10/06/2017 Assessment & Plan (10/07/2018 10:55 AM EST): He is not complaining of any symptoms that are concerning for ischemia. His EKG today is normal. He should continue aspirin lifelong. He exercises every day which I have praised him for. We will continue to optimize his risk factors. His blood pressure on my exam is 160/70. I have asked him to increase his lisinopril to 20 mg daily. He is looking for an alternative to his rosuvastatin and since it cost him $200 a month. His LDL was 123 on the highest dose of pravastatin. He wants to switch to lovastatin which I do not believe is strong enough for him. He is willing to retry the Lipitor 80 mg daily. If he has symptoms we can consider the injectables in the future. I will follow-up with him in 3 months regarding his blood pressure and lipids. Assessment & Plan (10/06/2017 9:39 AM EST): He has a history of stenting of his OM1 and RCA back in August 2016. He should remain on aspirin lifelong. At this point I think he can safely come off the clopidogrel. We will continue to optimize his cardiac risk factors. I will feel there are any kind indications to his hand surgery. I like to get the blood work from [facility] to make sure his LDL is improved since we switched him from pravastatin to rosuvastatin. HTN (hypertension) 10/06/2017 Assessment & Plan (10/07/2018 10:55 AM EST): Increase lisinopril to 20 mg. Follow-up 3 months. Assessment & Plan (10/06/2017 9:39 AM EST): His blood pressures well controlled on the current meds. Hyperlipidemia 10/06/2017 Assessment & Plan (10/07/2018 10:56 AM EST): Lipitor 80 mg daily. Recheck lipids in 3 months. Assessment & Plan (10/06/2017 9:39 AM EST): We switched him from pravastatin to rosuvastatin. I assume his LDL is under better control. I will get those labs from your office. Arthritis of carpometacarpal (CMC) joints of bot h thumbs Family History Medical History Relation Comments CV disease Father 2 Relation Status Comments Father 1 Father 2 Social History Tobacco Use Types Packs/Day Years Used Date Smoking Tobacco: Former Cigarettes Q uit: 2013 Smokeless Tobacco: Never Tobacco Cessation:Counseling Given: Not Answered Alcohol Use Standard Drinks/Week Comments Yes 1 (1 standard drink = 0.6 oz pur e alcohol) 2 drinks weekly Education Answer Date Recorded Are you interested in more education? Not on corky e 02/19/2023 Are you concerned about learning? Not on file 02/19/2023 No 02/19/2023 No 02/19/2023 Digital Access Answer Date Recorded No 03/20/2023 No 03/20/2023 Reliable internet access at home? Not on file 03/20/2023 Device with a working camera? Not on file Sex and Gender Information Value Date Recorded Sex Assigned at Not on file Legal Sex Male 9:58 PM EDT Gender Identity Not on file Sexual Orientation Not on file Last Filed Vital Signs Vital Sign Reading Time Taken Comments Blood Pressure 157/72 06/15/2022 4:19 AM EDT Pulse 60 06/15/2022 4:19 AM EDT Temperature 36.9 C (98.4 F) 06/15/2022 4:19 AM EDT Respiratory Rate 20 06/15/2022 4:19 AM EDT Oxygen Saturation 96% 06/15/2022 4:19 AM EDT Inhaled Oxygen Concentration - - Weight 84.4 kg (186 lb) 06/15/2022 4:19 AM EDT Height 177.8 cm (5' 10 ) 06/15/2022 4:19 AM EDT Body Mass Index 26.69 06/15/2022 4:19 AM EDT Plan of Treatment Health Maintenance Due Date Last Done Comments BLOOD PRESSURE 1955 DEPRESSION SCREENING 1965 SMOKING Hx and SMOKELESS TOBACCO SCREENING 1966 HEPATITIS C SCREENING 1971 COLOGUARD 1998 FIT TEST 1998 FOBT 1998 SIGMOIDOSCOPY 1998 VIRTUAL COLONOSCOPY 1998 ZOSTER VACCINES (2 of 3) 07/08/2015 05/13/2015, 04/25 ABDOMINAL AORTIC ANEURYSM (AAA) SCREENING 2018 CREATININE LEVEL 01/10/2020 01/09/2019 POTASSIUM LEVEL 01/10/2020 01/09/2019 PNEUMOCOCCAL VACCINES (50+ years) (3 of 3 - PCV20 or PCV21) 05/25/2024 05/25/2019, 03/14/2013 INFLUENZA VACCINE (#1) 2025 , 07/25/2021, 07/30/2020, Additional history exists COVID-19 VACCINE ( - 2024- season) 2025 09/28/2022, 02/11/2022, 08/19/2021, Additional history exists RSV VACCINE (1 - 1-dose 75+ series) 2028 Adult Td,Tdap Booster 05/15/2029 05/15/2019 , 05/15/2019, 2008 COLONOSCOPY 09/14/2029 09/14/2019 COLORECTAL CANCER SCREENING 09/14/2029 HEPATITIS A VACCINES Aged Out No long er eligible based on patient's age to complete this topic HIB VACCINES Aged Out No longer eligi ble based on patient's age to complete this topic MENINGOCOCCAL VACCINES (ACWY) Aged Out No longer eligible based on patient's age to complete this topic MENINGOCOCCAL VACCINES (B) Aged Out N o longer eligible based on patient's age to complete this topic Medical Devices Implanted Type Area Operative Supervisor Device Identifier Shelf Expiration Date Model / Serial / Lot Cardiac Stents Mesh In Abdomen [place] Suture 2.3mmxsz 0 Absorbable Ethibond Mini [place] - [id number] Implanted:Qty: 1 on 10/13/2017 by Viry Mccabe MD at [facility] Right: Hand [employer] 06/24/2021 [id number] / / [id number] [place] Suture 0 Os2 36in 2.3mm Arthroscopy Ethibond Quickanchor Double Arm Mini Absorbable - [id number] Implanted:Qty: 1 on 06/22/2018 by Viry Mccabe MD at [facility] Left: Hand [employer] 09/23/2022 [id number] / / [id number] Procedures Procedure Name Priority Date/Time Associated Diagnosis Comments ENDOSCOPY, COLON 09/14/2019 10:2 9 AM EST BASIC METABOLIC PANEL Routine 01/09/2019 10:51 AM EDT Benign essential hypertension from Last 3 Months or Most Recently Relevant to Health Maintenance Results * ENDOSCOPY, COLON (09/14/2019 10:29 AM EST) Narrative Transcriptions Stephan Mijares MD - 09/14/2019 10:29 AM EST Patient Name: Jorge Delvalle Attending MD:: STEPHAN MIJARES MD Procedure Date: 09/14/2019 10:29AM Date of : 1955 Age: 64 Admit Type: Outpatient Gender: Male Room: [place] [address] Referring MD: Layne Heller PA-C Exam Type: Colonoscopy Indications: Screening for colorectal malignant neoplasm, Last colonoscopy: 2008 Medications: Monitored Anesthesia Care Procedure: Informed consent was obtained from the patient after discussion of the indications, limitations,alternatives, benefits, and risks of the procedure. Risksspecifically discussed include but are not limited to medication reactions, missed lesions, bleeding, perforation, orthe need for emergent surgery. Throughout the procedure, the patient's blood pressure, pulse, end-tidal CO2, and oxygen saturations were monitored continuously. The Olympus adult variable colonoscope [id number] #3 was introduced through the anus and advanced to theterminal ileum. The colonoscopy was performed withoutdifficulty. The patient tolerated the procedure well. The qualityof the bowel preparation was good. Complications: No immediate complications. Estimated blood loss:None. Findings: The perianal and digital rectal examinations werenormal. Multiple small-mouthed diverticula were found in the sigmoid colon, descending colon and ascending colon. The rectum, recto-sigmoid colon, sigmoid colon,descending colon, splenic flexure, transverse colon, hepaticflexure, ascending colon, cecum, appendiceal orifice, ileocecal valve, ileum, rectum (on retroflexion) and ascendingcolon (on retroflexion) appeared normal. Impression: - Diverticulosis in the sigmoid colon, in thedescending colon and in the ascending colon. - The rectum, recto-sigmoid colon, sigmoid colon, descending colon, splenic flexure, transverse colon, hepatic flexure, ascending colon, cecum, appendiceal orifice, ileocecal valve and terminal ileum arenormal. - No specimens collected. Recommendation: - Discharge patient to home. - High fiber diet. - Continue present medications. - Repeat colonoscopy in 10 years for screeningpurposes. - You have diverticulosis so please eat a high fiberdiet. STEPHAN MIJARES MD 09/14/2019 10:48:30 AM This report has been signed electronically. Number of Addenda: 0 Note Initiated On: 09/14/2019 10:29 AM Procedure Code(s): --- Professional --- 36082, Colonoscopy, flexible; diagnostic, including collection of specimen(s) by brushing or washing, when performed (separateprocedure) --- Technical --- 35441, Colonoscopy, flexible; diagnostic, including collection of specimen(s) by brushing or washing, when performed (separateprocedure) Diagnosis Code(s): --- Professional --- Z12.11, Encounter for screening for malignant neoplasm of colon K57.30, Diverticulosis of large intestine without perforation orabscess without bleeding --- Technical --- Z12.11, Encounter for screening for malignant neoplasm of colon K57.30, Diverticulosis of large intestine without perforation orabscess without bleeding CPT copyright 2018 [employer]. All rights reserved. The codes documented in this report are preliminary and upon oil well service unit operator reviewmay be revised to meet current compliance requirements. [address] [place] [address] Layne MORTON GI PROCEDURE ORDERABLES Fin al Result * (ABNORMAL) Basic metabolic panel (01/09/2019 10:51 AM EDT) SODIUM 143 133 - 146 mmol/L [facility] CHLORIDE 103 96 - 108 mmol/L [facility] POTASSIUM 4.7 3.3 - 5.1 mmol/L [facility] CO2 24 21 - 35 mmol/L [facility] BUN 19 6 - 19 mg/dL [facility] CREATININE 0.70 0.5 - 1.5 mg/dL [facility] GLUCOSE 97 70 - 99 mg/dL [facility] CALCIUM 8.7 8.4 - 10.3 mg/dL [facility] EGFR 99 >59 mL/min/1.7 3m2 [facility] Comment:If patient is black, multiply result by 1.159. Estimated glomerular filtration rate calculated using the CKD-EPI equation. ANION GAP 21(H) 10 - 20 mmol/L [facility] Blood 01/09/2019 10:5 1 AM EDT 01/09/2019 10:53 AM EDT Kristy MORTON LAB BLOOD ORDERABLES Final Result [facility] [address] [place] [address] from Last 3 Months or Most Recently Relevant to Health Maintenance [place] [address] [place] [address] MEDICARE REPLACEMENT [facility] MEDICARE REPLACEMENT [facility] MEDICARE REPLACEMENT [facility] MEDICARE REPLACEMENT MEDICARE REPLACEMENT MEDICARE REPLACEMENT MEDICARE REPLACEMENT MEDICARE REPLACEMENT MEDICARE REPLACEMENT Advance Directives For more information, please contact: [phone] (9AM - 5PM [facility], Wednesday-Wednesday) * Full Code (Presumed) (Latest Code Status on File) Date Activated Date Inactivated Comments 10/13/2017 8:59 AM 10/13/2017 3:11 PM Care Teams Test Specialist Relationship Specialty Start Date End Date Magali Maxwell NP [address] [place] [id number] PCP - General Family Medicine 10/13/22 Additional Source Comments The information contained in this document represents components of the legal health record. It is not the complete legal health record.[facility]
--- OUTSIDE RECORDS SUMMARY | 2025-07-02 06:49 | XMS_ITS | Encounter Summary ---
Author Organization [facility] Address [address] [place] [address] Phone Care Team Providers Care Facility Supervisor Name Role Phone Akash Schulz PA-C Primary Care Provider [phone] Vaughn Reyes MD Unavailable [phone] Layne Heller Primary Care Provider [phone] Ayaka French ARBORIST CLIMBER Primary Care Provi larry Unavailable Magali Maxwell NP Primary Care Provider [phone] Encounter Details Date Type Department Care Team (Late st Contact Info) Description 07/05/2018 Ancillary Orders [facility] Medical [facility] Orthopedics & Sports Medicine [address] [place] [id number] Magali Goodman PA-C [address] [place] [address] Orthopedics & Sports Medicine, [place] [address] [email or web address] Social History Tobacco Use Types Packs/Day Years [...] on filedocumented in this encounter Care Teams Facility Supervisor Relationship Specialty Start Date End Date Akash Schulz PA-C [address] [place] [address] [address] [place] [address] PCP - General 09/21/17 09/13/19 Layne Heller PA [address] [place] [address] [address] [place] [address] PCP - General Unknown Provider Specialty 09/14/19 06/14/22 Ayaka French NP PCP - General Family Medicine 06/15/22 10/12/22 Magali Maxwell NP [address] [place] [address] PCP - General Family Medicine 10/13/22 Vaughn Reyes MD [address] [place] [phone] [email or web address] Assigned Provider 01/22/18 01/28/19 documented as of this encounter Additional Source Comments The information contained in this document represents components of the legal health record. It is not the complete legal health record.[facility]
--- OUTSIDE RECORDS SUMMARY | 2025-07-02 06:49 | XMS_ITS | Clinical Summary ---
Author Organization [facility] Address [address] [place] [address] Phone Care Team Providers Care Debug Technician Name Role Phone Jennifer Quiroz MD [...] Date Diagnosed Date Pulmonary emphysema (CMS/HCC V24, [facility] V28) 0 01/04/2024 Essential hypertension 01/04/2024 HLD (hyperlipidemia) 01/04/2024 Enlarged prostate without lo wer urinary tract symptoms (luts) 01/04/2024 Rheumatoid arthritis ([facility] V24, [facility] V28) 01/04/2024 CAD (coronary atherosclerotic disease) 6 [...] atherosclerotic disease); COMMENT: with stents Pulmonary emphysema ([facility] V24, [facility] V28) DX:Pulmonary emphysema (HCC) History [...] - PCV20 or PCV21) 05/25/2024 05/25/2019, 03/14/2013 Lung Cancer Screening (Low Dose CT) 10/11/2024 10/11/2023, 09/25/2022, 09/24/2021 Depression Screening 10/25/2024 01/04/2024 Falls Risk Assessment 01/03/2025 01/04/2024 Hypertension/CHF/CAD Annual BMP Blood Test 01/04/2025 01/05/2024 COVID-19 Vaccine ( season) 2025 07/27/2023, 07/27/2023, 09/28/2022, Additional history exists Influenza Vaccine (#1) 2025 , 07/27/2023, 07/17/2022, [...] * Falls Risk Assessment (01/04/2024) Pathologist [facility] Falls Risk Assessment abstracted Historical Provider HEALTH MAINTENANCE Final Result * Depression Screening (01/04/2024) Pathologist [facility] Depression Screening abstracted Historical Provider HEALTH MAINTENANCE Final Result * CT LUNG SCREENING LOW DOSE (10/11/2023 4:23 AM EST) Anatomical Region Laterality Modality Computed Tomogra phy 09/30/2023 7:43 AM EST Narrative 10/11/2023 4:23 AM EST [facility] Diagnostic Imaging Department [address] [place] [address] Patient: SEDRICK HOWE /Age/Sex: 1955 - 68 - M Unit#: [id number] Location/Status: SPDICATLS/REG CLI Mnemonic/Ordering Site[facility] Ordering Physician: TREVON DONATO MD CT Lung Screening Low Dose - 09/30/2356 Report Status:Signed Indication: Greater than 20 total [...] [facility] Diagnostic Imaging Department [address] [place] [address] Patient: SEDRICK HOWE Derrell LockeB./Age/Sex: 1955 - 68 - M Unit#: [id number] [facility] CLI Mnemonic/Ordering Site: [facility] Ordering Physician: TREVON DONATO MD [...] 10/11/239 Sign date/Time: 10/11/23422 Trevon Donato MD [facility] PROCEDURES Final Result * Colonoscopy (09/14/2019) Colonoscopy no interpretation , abstracted Anatomical Region Laterality Modality Other Historical Provider HEALTH MAINTENANCE Final Result from Last 3 Months or Most Recently Relevant to Health Maintenance Insurance [employer] MEDICARE Care Teams Debug Technician Relationship Specialty Start Date End Date Jennifer Quiroz MD [address] [place] [address] PCP - General Internal Medicine 10/04/24
[2025-07-02 14:29] LABS: Blood Urea Nitrogen 17 mg/dL (9-16); Estimated Glomerular Filt Rate > 60
== END 2025-07-02 06:47 | disposition home or self-care (01) ==
LOC: HO.HMGCLDS 06:46
PROVIDERS: PCP Family Medicine; Visit Provider Urology
DX: N40.1 Benign prostatic hyperplasia with lower urinary tract symptoms (principal); R33.9 Retention of urine, unspecified
CPT/HCPCS: 36415; 82565; 84520

== ENCOUNTER 2025-07-10 09:16 | Outpatient (AMB) | payer OTHER, SELFPAY ==
--- NOTE | 2025-07-10 09:37 | A.OFFPC_ITS ---
Vital Signs 07/10/25 09:40 Height 5 ft 10 in Weight 151 lb 6 oz BMI 21.7 BP 112/60 Blood Pressure Location Lt brachial Position Sitting Respiration 14 Pulse 59 Pulse Source Pulse Oximeter Pulse Oximetry (%) 95 Oxygen Delivery Method Room Air Intake Visit Reasons: follow-up mild anemia - see comments Intake Note: Follow up Allergies codeine Allergy (Intermediate, Verified 07/10/25 09:37) Headache Medication List - Last Reconciled 07/10/25 by Paulie Her MD ascorbic acid (vitamin C) 1 g PO DAILY aspirin 81 mg PO DAILY atorvastatin 80 mg PO DAILY 90 days bisacodyl (Dulcolax (bisacodyl)) 10 mg (2 x 5 mg) PO BEDTIME 2 days bisacodyl (Laxative (bisacodyl)) 10 mg PO BEDTIME budesonide-formoterol 160-4.5 mcg/actuation (Symbicort) 1 puff inhalation BID cyanocobalamin (vitamin B-12) 1,000 mcg PO DAILY doxycycline hyclate 200 mg (2 x 100 mg) PO ONCE 1 day dutasteride (Avodart) 0.5 mg PO DAILY folic acid 1 mg PO DAILY lisinopril 20 mg PO DAILY 90 days methotrexate sodium 15 mg PO QWEEK peg 3350-electrolytes 236-22.74-6.74 -5.86 gram (Golytely) 240 mL PO Q10M 1 day tamsulosin 0.4 mg PO DAILY Tobacco use date assessed: 07/10/25 Fall risk assessment: No Falls in past year Last assessed Fall Risk: 07/10/25 Dental Screening Dental Screen Date: 07/10/25 Did you have a dental visit in the last 12 months?: No Did you have a dental problem in the last 6 months where you did not have access to dental care?: No Was dental information given to patient?: Patient declined HPI follow-up mild anemia - see comments HPI Details 69 y/o male presents to f/u hypertension , pre-diabetes. Hx of CAD. No recent labs to review for his mild anemia. Denies any bleeding. Recent A1c 6.0%. BP today 112/60, 59p. He is on lisinopril 20mg daily. HPI Comments History of Present Illness Details Documentation assistance for Paulie Her MD, was provided by Vince Llenardo Hyman,? Cart Attendant on at 9:47 AM ANDREA. I, Dr. Her, have read, observed, and verified documentation. [facility] Medical History (Updated 06/21/25 @ 08:58 by HARRY Parks) Screening for prostate cancer Acquired complex renal cyst Umbilical mass Screening for colon cancer CAD (coronary artery disease) Stented coronary artery Hypertension Hyperlipidemia Pre-diabetes BPH loc w urin obs/LUTS Personal history of nicotine dependence Surgical History (Updated 06/21/25 @ 08:54 by Akash Bernal [facility]) History of colonoscopy History of surgery on wrist History of umbilical hernia repair History of heart artery stent Social History Housing: House Patient Tobacco Use Status: Current someday Tobacco user Cigarette Packs Per Day: 1 Years Smoked: (onset 16yo, 1ppd x 42yrs, 40pyh - quit 2013) e-Cigarette/Vaping Use: Never Used service: No Current occupational status: retired Current occupational exposures/hazards: No Cognitive needs: No Hearing needs: No Vision needs: Yes Questionnaire Thrive Questionnaire Date Thrive assessed: 01/06/25 I am a: Patient What is your living situation today?: I have a steady place to live Within the past 12 months, did the food you bought not last and you didn't have the money to get more?: Never true Within the past 12 months, did you worry whether your food would run out before you got money to buy more?: Never true Do you have trouble paying for medicines?: No Do you have trouble getting transportation to medical appointments?: No Do you have trouble paying your heating and electricity bill?: No Do you have trouble taking care of your child, family member or friend?: No Do you have trouble with day-to-day activities such as bathing, preparing meals, shopping, managing finances, etc.?: No Are you currently unemployed and looking for a job?: No Are you interested in more education?: No Please select the resources that you would like help with: None Currently or been in a relationship where the following occur: I choose not to answer THRIVE Score: 0 AUDIT C Alcohol Use Questionnaire (AUDIT-C) 1. How often do you have a drink containing alcohol?: Never 3. How often do you have six or more drinks on one occasion?: Never Total Score: 0 OTONIEL-7 AMB Questionnaire OTONIEL-7 Date OTONIEL - 7 assessed: 01/09/25 Source: Developed by Drs. Aba Larsen, Soraya Marcelino, Indra Duran and colleagues, with an educational lisette from [employer]. Review of Systems Const Denies chills, Denies fatigue, Denies fever(s), Denies headache(s) and Denies weakness ENT Denies dizziness and Denies headache(s) Card Denies dyspnea Resp Denies cough, Denies dyspnea, Denies wheezing and Denies other (shortness of breath) Musc Denies numbness and Denies tingling Neuro Denies dizziness, Denies headache(s), Denies numbness, Denies tingling and Denies weakness Psych Denies anxiety and Denies depression Endo Denies fatigue Aller/Immun Denies wheezing Physical exam (Primary Care) Vital Signs: Last Vital Signs Pulse 59 07/10/25 09:40 Resp 14 07/10/25 09:40 BP 112/60 07/10/25 09:40 Pulse Ox 95 07/10/25 09:40 Oxygen Delivery Method Room Air 07/10/25 09:40 BMI result Body Mass Index 21.7 Tobacco/Smoking Status: Tobacco use Status Tobacco use date assessed 07/10/25 07/10/25 09:42 Patient Tobacco Use Status Former Tobacco user (quit 12 07/10/25 09:42 years ago) e-Cigarette/Vaping Use Never Used 07/10/25 09:42 Thrive Assessment: Date of Thrive Assessment Date Thrive assessed 01/06/25 07/10/25 09:42 Currently or been in a relationship where the following occur: I choose not to answer Const General: well developed; No acute distress Nutritional Appearance: well nourished Orientation/consciousness: patient oriented x3 HENMT Head: Yes normocephalic and Yes atraumatic Eyes General: appearance normal, both eyes and all related structures Pupils: Equal, round and reactive pupils present EOM: EOMs intact bilaterally Resp Effort & Inspection: normal respiratory effort Auscultation: clear to auscultation bilaterally Cardio Rate: regular rate Rhythm: regular rhythm Heart sounds: S1 normal heart sound present, S2 normal heart sound present, no gallops, no murmurs and no rubs Neuro General: patient oriented x3 and gait normal Cranial nerves: Yes Equal, round and reactive pupils present Psych Affect: normal affect Coding Level of Care Code Est Pt Level 4 (11266) Diagnoses Hypertension I10 CAD (coronary artery disease) I25.10 Pre-diabetes R73.03 Mild anemia D64.9 Assessment & Plan Assessment & Plan (1) Hypertension: Code(s): I10 - Essential (primary) hypertension Category: Medical Plan: Blood pressure is well controlled. Goal is less than 130/80 Continue current medication (2) CAD (coronary artery disease): Code(s): I25.10 - Atherosclerotic heart disease of cabazon coronary artery without angina pectoris Category: Medical Plan: Stable Follow-up with Cardiology as recommended (3) Pre-diabetes: Code(s): R73.03 - Prediabetes Category: Medical Plan: A1c less than 3 months ago was 6.0% Continue working at a diet low in sugars and starches Will recheck with next visit (4) Mild anemia: Code(s): D64.9 - Anemia, unspecified Category: Medical Plan: Rechecking labs including CBC, iron and retic count Plan Patient has never had a carotid Doppler and is 69 years old with history of hyperlipidemia and CAD. Ordered Orders: Orders Complete Blood Count Auto Diff Today D64.9 - Anemia, unspecified, Z00.00 - Encounter for general adult medical examination without abnormal findings Basic Metabolic Panel Today D64.9 - Anemia, unspecified, Z00.00 - Encounter for general adult medical examination without abnormal findings Ferritin Today D64.9 - Anemia, unspecified Hemoglobin A1c Today R73.01 - Impaired fasting glucose US carotid duplex BI Today E78.5 - Hyperlipidemia, unspecified, I10 - Essential (primary) hypertension, I25.10 - Atherosclerotic heart disease of cabazon coronary artery without angina pectoris, Z00.00 - Encounter for general adult medical examination without abnormal findings IRON PROFILE Today D64.9 - Anemia, unspecified Reticulocyte Count Today D64.9 - Anemia, unspecified
[2025-07-10 09:40] VITALS: BP 112/60; PULSE 59; RESP 14; O2SAT 95; BMI 21.7
--- OUTSIDE RECORDS SUMMARY | 2025-07-10 11:43 | XMS_ITS | Encounter Summary ---
Author Organization [facility] Address [address] [place] [address] Phone Care Team Providers Care Sleeve Bottom Feller Name Role Phone Akash Schulz PA-C Primary Care Provider [phone] Vaughn Reyes MD Unavailable [phone] Layne Heller Primary Care Provider Ayaka French APARTMENT MAINTENANCE MANAGER Primary Care Provi larry Unavailable Magali Maxwell NP Primary Care Provider [phone] Encounter Details Date Type Department Care Team (Late st Contact Info) Description 10/13/2017 Procedure Pass [place] Admitting Dept - Virtual Department [address] [place] [address] Social History Tobacco Use Types Packs/Day Years [...] on filedocumented in this encounter Care Teams Sleeve Bottom Feller Relationship Specialty Start Date End Date Akash Schulz PA-C [address] [facility] [address] [place] [address] PCP - General 09/21/17 09/13/19 Layne Heller PA [address] [facility] [address] [place] [address] PCP - General Unknown Provider Specialty 09/14/19 06/14/22 Ayaka French NP PCP - General Family Medicine 06/15/22 10/12/22 Magali Maxwell NP [address] [facility] [address] [place] [address] PCP - General Family Medicine 10/13/22 Vaughn Reyes MD [address] [place] [phone] [email or web address] Insurance Assigned Provider 01/22/18 01/28/19 documented as of this encounter Additional Source Comments The information contained in this document represents components of the legal health record. It is not the complete legal health record.[facility]
--- OUTSIDE RECORDS SUMMARY | 2025-07-10 11:43 | XMS_ITS | Encounter Summary ---
Author Organization [facility] Address [address] [place] [address] Phone Care Team Providers Care Digital Media Buyer Name Role Phone Akash Schulz PA-C Primary Care Provider [phone] Vaughn Reyes MD Unavailable [phone] Layne Heller Primary Care Provider Ayaka French FINAL ASSEMBLER Primary Care Provi larry Unavailable Magali Maxwell NP Primary Care Provider [phone] Encounter Details Date Type Department Care Team (Latest Contact Info) Description 09/21/2017 Prep for Surgery [facility] Orthopedics & Sports Medicine [address] [place] [address] Viry Mccabe MD [address] [place] [address] Orthopedics & Sports Medicine, [facility] [place] [address] Arthritis of carpometacarpal (CMC) joints of both [...] Primary documented in this encounter Care Teams Digital Media Buyer Relationship Specialty Start Date End Date Akash Schulz PA-C [address] [place] [address] [address] [place] [address] PCP - General 09/21/17 09/13/19 Layne Heller PA [address] [place] [address] [address] [place] [address] PCP - General Unknown Provider Specialty 09/14/19 06/14/22 Ayaka French NP PCP - General Family Medicine 06/15/22 10/12/22 Magali Maxwell NP [address] [place] [address] PCP - General Family Medicine 10/13/22 Vaughn Reyes MD [address] [place] [phone] [email or web address] Insurance Assigned Provider 01/22/18 01/28/19 documented as of this encounter Additional Source Comments The information contained in this document represents components of the legal health record. It is not the complete legal health record.[facility]
--- OUTSIDE RECORDS SUMMARY | 2025-07-10 11:43 | XMS_ITS | Encounter Summary ---
Author Organization [facility] Address [address] [place] [address] Phone Care Team Providers Care Bagger Meat Name Role Phone Akash Schulz PA-C Primary Care Provider [phone] Vaughn Reyes MD Unavailable [phone] Layne Heller Primary Care Provider Ayaka French DIGITAL AD TRAFFICKER Primary Care Provi larry Unavailable Magali Maxwell NP Primary Care Provider [phone] Encounter Details Date Type Department Care Team (Late st Contact Info) Description 05/13/2018 Prep for Surgery [facility] Orthopedics & Sports Medicine [address] [place] [address] Viry Mccabe MD [address] [place] [address] Orthopedics & Sports Medicine, [facility] [place] [address] Social History Tobacco Use Types Packs/Day Years [...] on filedocumented in this encounter Care Teams Bagger Meat Relationship Specialty Start Date End Date Akash Schulz PA-C [address] [place] [address] [address] [place] [address] PCP - General 09/21/17 09/13/19 Layne Heller PA [address] [place] [address] 234 [place] [address] PCP - General Unknown Provider Specialty 09/14/19 06/14/22 Ayaka French NP PCP - General Family Medicine 06/15/22 10/12/22 Magali Maxwell NP [address] [place] [address] PCP - General Family Medicine 10/13/22 Vaughn Reyes MD [address] [place] [phone] [email or web address] Insurance Assigned Provider 01/22/18 01/28/19 documented as of this encounter Additional Source Comments The information contained in this document represents components of the legal health record. It is not the complete legal health record.[facility]
--- OUTSIDE RECORDS SUMMARY | 2025-07-10 11:43 | XMS_ITS | Encounter Summary ---
Author Organization [facility] Address [address] [place] [address] Phone Care Team Providers Care Director Property Name Role Phone Akash Schulz PA-C Primary Care Provider [phone] Vaughn Reyes MD Unavailable [phone] Layne Heller Primary Care Provider Ayaka French CUSTOMER LIAISON Primary Care Provi larry Unavailable Magali Maxwell NP Primary Care Provider [phone] Encounter Details Date Type Department Care Team (Late st Contact Info) Description 10/21/2017 Ancillary Orders [facility] Medical [facility] Orthopedics & Sports Medicine [address] [place] [address] Maglai Goodman PA-C [address] [place] [address] Orthopedics & Sports Medicine, [place] [address] [email or web address] Social History Tobacco Use Types Packs/Day Years [...] on filedocumented in this encounter Care Teams Director Property Relationship Specialty Start Date End Date Akash Schulz PA-C [address] [place] [address] [address] [place] [address] PCP - General 09/21/17 09/13/19 Layne Heller PA [address] [place] [address] 234 [place] [address] PCP - General Unknown Provider Specialty 09/14/19 06/14/22 Ayaka French NP PCP - General Family Medicine 06/15/22 10/12/22 Magali Maxwell NP [address] [place] [address] PCP - General Family Medicine 10/13/22 Vaughn Reyes MD [address] [place] [phone] [email or web address] Assigned Provider 01/22/18 01/28/19 documented as of this encounter Additional Source Comments The information contained in this document represents components of the legal health record. It is not the complete legal health record.[facility]
--- OUTSIDE RECORDS SUMMARY | 2025-07-10 11:43 | XMS_ITS | Encounter Summary ---
Author Organization [facility] Address [address] [place] [address] Phone Care Team Providers Care Inspection Machine Tender Name Role Phone Layne Heller Primary Care Provider Ayaka French CANAL LOCK TENDER CHIEF OPERATOR Primary Care Provi larry [facility] Magali Maxwell CANAL LOCK TENDER CHIEF OPERATOR Primary Care Provider [phone] Encounter Details Date Type Department Care Team (Late st Contact Info) Description 09/14/2019 Procedure Pass [facility] Endoscopy Admitting Dept Virtual Department [address] [place] [address] Social History Tobacco Use Types Packs/Day Years [...] on filedocumented in this encounter Care Teams Inspection Machine Tender Relationship Specialty Start Date End Date Layne Heller PA [address] [place] [address] PCP - General Unknown Provider Specialty 09/14/19 06/14/22 Ayaka French NP PCP - General Family Medicine 06/15/22 10/12/22 Magali Maxwell NP [address] [address] [place] [address] PCP - General Family Medicine 10/13/22 documented as of this encounter Additional Source Comments The information contained in this document represents components of the legal health record. It is not the complete legal health record.[facility]
--- OUTSIDE RECORDS SUMMARY | 2025-07-10 11:43 | XMS_ITS | Encounter Summary ---
Author Organization [facility] Address [address] [facility] [address] [place] [address] Phone Care Team Providers Care Virtual Classroom Manager Name Role Phone Akash Schulz PA-C Primary Care Provider [phone] Vaughn Reyes MD Unavailable [phone] Layne Heller Primary Care Provider Ayaka French MASTERCAM PROGRAMMER Primary Care Provi larry Unavailable Magali Maxwell NP Primary Care Provider [phone] Encounter Details Date Type Department Care Team (Late st Contact Info) Description 06/22/2018 Procedure Pass [place] Admitting Dept - Virtual Department [address] [place] [address] Social History Tobacco Use Types Packs/Day Years [...] on filedocumented in this encounter Care Teams Virtual Classroom Manager Relationship Specialty Start Date End Date Akash Schulz PA-C [address] [facility] [address] [place] [address] PCP - General 09/21/17 09/13/19 Layne Heller PA [address] [facility] [address] [place] [address] PCP - General Unknown Provider Specialty 09/14/19 06/14/22 Ayaka French NP PCP - General Family Medicine 06/15/22 10/12/22 Magali Maxwell NP [address] [facility] 204 [place] [address] PCP - General Family Medicine 10/13/22 Vaughn Reyes MD [address] [place] [phone] [email or web address] Insurance Assigned Provider 01/22/18 01/28/19 documented as of this encounter Additional Source Comments The information contained in this document represents components of the legal health record. It is not the complete legal health record.[facility]
--- OUTSIDE RECORDS SUMMARY | 2025-07-10 11:43 | XMS_ITS | Encounter Summary ---
Author Organization [facility] Address [address] [place] [address] Phone Care Team Providers Care Grocery Store Bagger Name Role Phone Akash Schulz PA-C Primary Care Provider [phone] Vaughn Reyes MD Unavailable [phone] Layne Heller Primary Care Provider Ayaka French SUPERVISOR NUCLEAR MEDICINE Primary Care Provi larry Unavailable Magali Maxwell NP Primary Care Provider [phone] Encounter Details Date Type Department Care Team (Late st Contact Info) Description 10/21/2017 Ancillary Orders [address] [address] Magali Goodman PA-C [address] [place] [address] Orthopedics & Sports Medicine, [facility] [place] [address] [email or web address] Pain of finger, unspecified laterality Social History [...] laterality documented in this encounter Care Teams Grocery Store Bagger Relationship Specialty Start Date End Date Akash Schulz PA-C [address] [place] [address] 1 [place] [address] PCP - General 09/21/17 09/13/19 Layne Heller PA [address] [place] [address] 234 [place] [address] PCP - General Unknown Provider Specialty 09/14/19 06/14/22 Ayaka French NP PCP - General Family Medicine 06/15/22 10/12/22 Magali Maxwell NP [address] [place] [address] 204 [place] [address] PCP - General Family Medicine 10/13/22 Vaughn Reyes MD [address] [place] [phone] [email or web address] Insurance Assigned Provider 01/22/18 01/28/19 documented as of this encounter Additional Source Comments The information contained in this document represents components of the legal health record. It is not the complete legal health record.[facility]
--- OUTSIDE RECORDS SUMMARY | 2025-07-10 11:43 | XMS_ITS | Clinical Summary ---
Author Organization [facility] Address [address] [place] [address] Phone Care Team Providers Care Batch Still Operator Name Role Phone Jennifer Quiroz MD Primary [...] Date Diagnosed Date Pulmonary emphysema (CMS/HCC V24, [facility] V28) 0 01/04/2024 Essential hypertension 01/04/2024 HLD (hyperlipidemia) 01/04/2024 Enlarged prostate without lo wer urinary tract symptoms (luts) 01/04/2024 Rheumatoid arthritis ([facility] V24, [facility] V28) 01/04/2024 CAD (coronary atherosclerotic disease) 6 [...] atherosclerotic disease); COMMENT: with stents Pulmonary emphysema ([facility] V24, [facility] V28) DX:Pulmonary emphysema (HCC) History [...] Result * Falls Risk Assessment (01/04/2024) Pathologist [facility] Falls Risk Assessment abstracted Historical Provider HEALTH MAINTENANCE Final Result * Depression Screening (01/04/2024) Pathologist [facility] Depression Screening abstracted Historical Provider HEALTH MAINTENANCE Final Result * CT LUNG SCREENING LOW DOSE (10/11/2023 4:23 AM EST) Anatomical Region Laterality Modality Computed Tomogra phy 09/30/2023 7:43 AM EST Narrative 10/11/2023 4:23 AM EST [facility] Diagnostic Imaging Department [address] [place] [address] Patient: SEDRICK HOWE /Age/Sex: 1955 - 68 - M Unit#: [id number] Location/Status: SPDICATLS/REG CLI Mnemonic/Ordering Site: [facility] Ordering Physician: TREVON DONATO MD CT Lung Screening Low Dose - 09/30/2363 Report Status:Signed Indication: Greater than 20 total [...] Procedure Note Alex Malin MD - 11/30/2023 [facility] Diagnostic Imaging Department [address] [place] [address] Patient: SEDRICK HOWE Derrell LockeB./Age/Sex: 1955 - 68 - M Unit#: [id number] [facility] CLI Mnemonic/Ordering Site: [facility] Ordering Physician: TREVON DONATO MD [...] 10/11/239 Sign date/Time: 10/11/23422 Trevon Donato MD [facility] CT PROCEDURES Final Result * Colonoscopy (09/14/2019) Colonoscopy no interpretation , abstracted Anatomical Region Laterality Modality Other Historical Provider HEALTH MAINTENANCE Final Result from Last 3 Months or Most Recently Relevant to Health Maintenance Insurance [employer] MEDICARE Care Teams Batch Still Operator Relationship Specialty Start Date End Date Jennifer Quiroz MD [address] [place] [address] PCP - General Internal Medicine 10/04/24
--- OUTSIDE RECORDS SUMMARY | 2025-07-10 11:43 | XMS_ITS | Encounter Summary ---
Author Organization [facility] Address [address] [place] [address] Phone Care Team Providers Care Emergency Operator Name Role Phone Akash Schulz PA-C Primary Care Provider [phone] Vaughn Reyes MD Unavailable [phone] Layne Heller Primary Care Provider Ayaka French PARKING LOT SIGNALER Primary Care Provi larry Unavailable Magali Maxwell NP Primary Care Provider [phone] Encounter Details Date Type Department Care Team (Late st Contact Info) Description 07/05/2018 Ancillary Orders [address] [address] Magail Goodman PA-C [address] [place] [address] Orthopedics & Sports Medicine, [facility] [place] [address] [email or web address] Finger pain, left Social History Tobacco Use [...] limb documented in this encounter Care Teams Emergency Operator Relationship Specialty Start Date End Date Akash Schulz PA-C [address] [place] [address] 1 [place] [address] PCP - General 09/21/17 09/13/19 Layne Heller PA [address] [place] [address] [address] [place] [address] PCP - General Unknown Provider Specialty 09/14/19 06/14/22 Ayaka French NP PCP - General Family Medicine 06/15/22 10/12/22 Magali Maxwell NP [address] [facility] 204 [place] [address] PCP - General Family Medicine 10/13/22 Vaughn Reyes MD [address] [place] [phone] [email or web address] Assigned Provider 01/22/18 01/28/19 documented as of this encounter Additional Source Comments The information contained in this document represents components of the legal health record. It is not the complete legal health record.[facility]
--- OUTSIDE RECORDS SUMMARY | 2025-07-10 11:43 | XMS_ITS | Encounter Summary ---
Author Organization [facility] Address [address] [place] [address] Phone Care Team Providers Care Physical Science Technician Name Role Phone Akash Schulz PA-C Primary Care Provider [phone] Vaughn Reyes MD Unavailable [phone] Layne Heller Primary Care Provider Ayaka French PHY THERAPIST Primary Care Provi larry Unavailable Magali Maxwell NP Primary Care Provider [phone] Encounter Details Date Type Department Care Team (Late st Contact Info) Description 07/05/2018 Ancillary Orders [facility] Orthopedics & Sports Medicine [address] [place] [address] Magali Goodman PA-C [address] [place] [address] Orthopedics & Sports Medicine, [facility] [place] [address] [email or web address] Social History Tobacco Use Types Packs/Day Years [...] on filedocumented in this encounter Care Teams Physical Science Technician Relationship Specialty Start Date End Date Akash Schulz PA-C [address] [place] [address] [address] [place] [address] PCP - General 09/21/17 09/13/19 Layne Heller PA [address] [place] [address] 234 [place] [address] PCP - General Unknown Provider Specialty 09/14/19 06/14/22 Ayaka French NP PCP - General Family Medicine 06/15/22 10/12/22 Magali Maxwell NP [address] [place] [address] PCP - General Family Medicine 10/13/22 Vaughn Reyes MD [address] [place] [phone] [email or web address] Assigned Provider 01/22/18 01/28/19 documented as of this encounter Additional Source Comments The information contained in this document represents components of the legal health record. It is not the complete legal health record.[facility]
--- OUTSIDE RECORDS SUMMARY | 2025-07-10 11:43 | XMS_ITS | Clinical Summary ---
Author Organization [facility] Address [address] [place] [address] Phone Care Team Providers Care Molasses And Caramel Operator Name Role Phone Magali Maxwell NP Primary Care Provider [phone] Allergies Active Allergy Reactions Criticality Noted Date [...] SAME MEAL Active cyanocobalamin/fol ic acid (VITAMIN [id number] ACID) 1,000-400 mcg Lozg 1 tablet. A [...] like to get the blood work from [facility] to make sure his LDL is improved [...] this topic Medical Devices Implanted Type Area Production Expert Device Identifier Shelf Expiration Date Model / Serial / Lot Cardiac Stents Mesh In Abdomen Chesterton Suture 2.3mmxsz 0 Absorbable Ethibond Mini Chesterton - [id number] Implanted:Qty: 1 on 10/13/2017 by Viry Mccabe MD at [facility] Right: Hand [employer] 06/24/2021 [id number] / / [id number] Chesterton Suture 0 Os2 36in 2.3mm Arthroscopy Ethibond Quickanchor Double Arm Mini Absorbable - [id number] Implanted:Qty: 1 on 06/22/2018 by Viry Mccabe MD at [facility] Left: Hand [employer] 09/23/2022 [id number] / / [id number] Procedures Procedure Name Priority Date/Time Associated Diagnosis [...] 66 Admit Type: Outpatient Gender: Male Room: [place] [address] Referring MD: Layne Heller PA-C Exam Type: [...] monitored continuously. The Olympus adult variable colonoscope [id number] #[id number] was introduced through the anus and [...] 10:29 AM Procedure Code(s): --- Professional --- 63144, Colonoscopy, flexible; diagnostic, including collection of specimen(s) by brushing or washing, when performed (separateprocedure) --- Technical --- 05427, Colonoscopy, flexible; diagnostic, including collection of specimen(s) by brushing or washing, when performed (separateprocedure) Diagnosis Code(s): --- Professional --- Z12.11, Encounter for screening for malignant neoplasm of colon K57.30, Diverticulosis of large intestine without perforation orabscess without bleeding --- Technical --- Z12.11, Encounter for screening for malignant neoplasm of colon K57.30, Diverticulosis of large intestine without perforation orabscess without bleeding CPT copyright 2018 [employer]. All rights reserved. The codes documented in this report are preliminary and upon master lay out specialist reviewmay be revised to meet current compliance requirements. [address] [place] [address] Layne MORTON GI PROCEDURE ORDERABLES Fin al Result * (ABNORMAL) Basic metabolic panel (01/09/2019 10:51 AM EDT) SODIUM 143 133 - 146 mmol/L [facility] CHLORIDE 103 96 - 108 mmol/L [facility] POTASSIUM 4.7 3.3 - 5.1 mmol/L [facility] CO2 24 21 - 35 mmol/L [facility] BUN 19 6 - 19 mg/dL [facility] CREATININE 0.70 0.5 - 1.5 mg/dL [facility] GLUCOSE 97 70 - 99 mg/dL [facility] CALCIUM 8.7 8.4 - 10.3 mg/dL [facility] EGFR 99 >59 mL/min/1.7 3m2 [facility] Comment:If patient is black, multiply result by 1.159. Estimated glomerular filtration rate calculated using the CKD-EPI equation. ANION GAP 21(H) 10 - 20 mmol/L [facility] Blood 01/09/2019 10:5 1 AM EDT 01/09/2019 10:53 AM EDT Kristy MORTON LAB BLOOD ORDERABLES Final Result [facility] [address] [place] [address] from Last 3 Months or Most Recently Relevant to Health Maintenance [place] [address] [place] [address] MEDICARE REPLACEMENT [facility] MEDICARE REPLACEMENT [facility] MEDICARE REPLACEMENT [facility] MEDICARE REPLACEMENT MEDICARE REPLACEMENT MEDICARE REPLACEMENT MEDICARE REPLACEMENT MEDICARE REPLACEMENT MEDICARE REPLACEMENT Advance Directives For more information, please contact: [phone] (9AM - 5PM Sayda/[facility], Wednesday-Wednesday) * Full Code (Presumed) (Latest Code Status on File) Date Activated Date Inactivated Comments 10/13/2017 8:59 AM 10/13/2017 3:11 PM Care Teams Molasses And Caramel Operator Relationship Specialty Start Date End Date Magali Maxwell NP [address] [place] [address] PCP - General Family Medicine 10/13/22 Additional Source Comments The information contained in this document represents components of the legal health record. It is not the complete legal health record.[facility]
== END 2025-07-10 10:03 | disposition home or self-care (01) ==
LOC: HO.HMCFM 09:17
PROVIDERS: PCP Family Medicine; Visit Provider Family Medicine
DX: I10 Essential (primary) hypertension (principal); I25.10 Atherosclerotic heart disease of native coronary artery without angina pectoris; R73.03 Prediabetes; D64.9 Anemia, unspecified

== ENCOUNTER 2025-08-01 09:08 | Outpatient (AMB) | payer OTHER, SELFPAY ==
[2025-08-01 09:30] VITALS: BP 136/60; PULSE 54; TEMP 36.8; O2SAT 96; BMI 21.7
--- NOTE | 2025-08-01 09:30 | AM.OFFWIN_ITS ---
Intake Vital Signs 08/01/25 09:30 Height 5 ft 10 in Weight 151 lb BMI 21.7 BP 136/60 Blood Pressure Location Lt brachial Position Sitting Pulse 54 Pulse Source Pulse Oximeter Temp 98.3 F Temp Source Oral Pulse Oximetry (%) 96 Oxygen Delivery Method Room Air Intake Visit Reasons: EP Pain in RT side radiating into back Intake Note: pt presents with pain to right abdominal pain and pain from shoulders down to low back with numbness Patient Tobacco Use Status: Current someday Tobacco user Allergies codeine Allergy (Intermediate, Verified 08/01/25 09:32) Headache Do you need a note to return to daycare/school/sports/work: No HPI HPI Comments History of Present Illness Details History of Present Illness - The patient is a 69-year-old male pres enting with abdominal pain x 4 days - The abdominal pain began four days ago , located in the right abdominal region, and is worsened by pressure. - The patient denies any fever, nausea, vomiting, diarrhea, constipation, or changes in bowel movements. - He is eating and drinking normally and doing so does not worsen his pain. - He can pinpoint the area and when he p ushes on it, it makes the pain worse. - He has his GB, appendix and reports no previous liver issues. - There is no history of diverticulitis, and the patient is awaiting a colonoscopy. - The patient also reported a prostate i ssue, though details were not elaborated. Physical Exam General: Cooperative, healthy appearing, comfortable, no acute distress and well developed Orientation: Patient oriented x3 Limitations: No limitations Head: Normal to inspection Ears: Hearing grossly normal bilaterally Nose: Normal External nose present Face and sinus: Normal facial exam Eyes: Appearance normal, both eyes and all related structures Neck: Normal visual inspection and Yes full ROM Respiratory: Normal respiratory effort and able to speak in complete sentences. GI: normoactive BS, soft, negative mcburneys, negative murphys, no TTP throughout abdomen except in one specific area right side on border of RUQ and RLQ where he has point tenderness with deep palpation. Skin: No rashes or lesions noted Neuro: Patient oriented x3, gait normal Extremities: Normal to inspection, moving all extremities normally Review of Systems - Gastrointestinal: Reports abdominal pa in for four days. Denies nausea, vomiting, diarrhea, constipation, or changes in bowel movements. - Neurological: Reports numbness in the back. All systems reviewed and are unremarkable except as noted in HPI [facility] Medical History (Updated 08/01/25 @ 10:01 by Libia Loco PA-C) Screening for prostate cancer Acquired complex renal cyst Umbilical mass Screening for colon cancer CAD (coronary artery disease) Stented coronary artery Hypertension Hyperlipidemia Pre-diabetes BPH loc w urin obs/LUTS Personal history of nicotine dependence Surgical History (Updated 06/21/25 @ 08:54 by Akash Bernal CCM) History of colonoscopy History of surgery on wrist History of umbilical hernia repair History of heart artery stent Social History Housing: House Patient Tobacco Use Status: Current someday Tobacco user Cigarette Packs Per Day: 1 Years Smoked: (onset 16yo, 1ppd x 42yrs, 40pyh - quit 2013) e-Cigarette/Vaping Use: Never Used service: No Current occupational status: retired Current occupational exposures/hazards: No Cognitive needs: No Hearing needs: No Vision needs: Yes Physical Exam Vital Signs: Last Vital Signs Temp 98.3 F 08/01/25 09:30 Pulse 54 08/01/25 09:30 BP 136/60 08/01/25 09:30 Pulse Ox 96 08/01/25 09:30 Oxygen Delivery Method Room Air 08/01/25 09:30 BMI result Body Mass Index 21.7 Assessment & Plan Assessment & Plan (1) Right-sided abdominal pain of unknown etiology: Code(s): R10.9 - Unspecified abdominal pain Plan: Assessment and Plan Abdominal pain - VSS, pt well appearing and PE remarkable for point tenderness in between RLQ and RUQ. - No red flag symptoms, needs US or CT to evaluate issue further. Messaged his PCP to request one of these tests. - The patient will follow up with Dr. Her for potential imaging studies. - If symptoms worsen or fevers develop, the patient should seek emergency care at the ED. Coding Level of Care Code Est Pt Level 3 (55509) Diagnoses Right-sided abdominal pain of unknown etiology R10.9
== END 2025-08-01 10:06 | disposition home or self-care (01) ==
PROVIDERS: PCP Family Medicine; Visit Provider Physician Assistant
DX: R10.9 Unspecified abdominal pain (principal)

== ENCOUNTER 2025-08-30 08:17 | Outpatient (REF) | payer MEDICARE, SELFPAY ==
[2025-08-30 10:12] LABS: MANUAL DIFF FLAG NO
[2025-08-30 10:40] LABS: Anion Gap 10 (12-20); Blood Urea Nitrogen 19 mg/dL (9-16); Calcium 9.0 mg/dL (8.4-10.2); Carbon Dioxide 27 mmol/L (22-29); Chloride 109 mmol/L (96-108); Estimated Glomerular Filt Rate > 60; Iron 107 mcg/dL (45-160); Percent Iron Saturation 44 % (15-50); Potassium 4.7 mmol/L (3.3-5.1); Sodium 141 mmol/L (135-145); Total Iron Binding Capacity 244 mcg/dL (228-428); Unsaturated Iron Binding 137 ug/dL
[2025-08-30 10:41] LABS: Hematocrit 40.4 % (42.0-52.0); Hemoglobin 13.1 g/dl (14.0-18.0); Imm Gran Abs Auto 0.08 X10*3/uL (0.00-0.03); Imm Gran Pct Auto 1.2 % (0.0-0.4); Lymphocytes Absolute Auto 1.0 X10*3/uL (1.2-4.9); Mean Corpuscular HGB Conc 32.4 g/dl (31.0-36.0); Mean Corpuscular Hemoglobin 30.4 pg (27.0-33.0); Mean Corpuscular Volume 93.7 fL (80.0-98.0); NRBC Abs Auto 0.000 X10*3/uL (0.0-0.012); NRBC Pct Auto 0.0 /100WBC (0.0-0.2); Platelet Count 292 X10*3/uL (160-400); Red Blood Count 4.31 X10*6/uL (4.60-5.80); Reticulocytes Absolute 0.047 X10*6/uL (0.026-0.095); White Blood Count 6.5 X10*3/uL (4.8-10.8)
[2025-08-30 11:04] LABS: Prostate Specific Antigen 1.23 ng/mL (<0.05-4.0)
[2025-08-30 11:06] LABS: Ferritin 282 ng/mL (20-250)
== END 2025-08-30 08:18 | disposition home or self-care (01) ==
LOC: HO.HMGCLDS 08:17
PROVIDERS: Absent Provider Urology; PCP Family Medicine; Visit Provider Family Medicine
DX: Z00.00 Encounter for general adult medical examination without abnormal findings (principal); Z12.5 Encounter for screening for malignant neoplasm of prostate; D64.9 Anemia, unspecified; R93.89 Abnormal findings on diagnostic imaging of other specified body structures; R73.01 Impaired fasting glucose
CPT/HCPCS: 36415; 80048; 82728; 83036; 83540; 84153; 85025; 85045

== ENCOUNTER 2025-09-03 10:37 | Outpatient (AMB) | payer OTHER, SELFPAY ==
--- NOTE | 2025-09-03 10:41 | MHC.PC.OV ---
Vital Signs 09/03/25 10:48 Height 5 ft 10 in Weight 152 lb BMI 21.8 BP 110/50 L Blood Pressure Location Lt brachial Position Sitting Respiration 14 Pulse 54 Pulse Source Pulse Oximeter Temp 97.8 F Temp Source Oral Pulse Oximetry (%) 92 Oxygen Delivery Method Room Air Intake Visit Reasons: pain on the right side below the ribs Intake Note: patient is scheduled to follow up for pain on his right side below his ribs Fabric And Accessories Estimator Required: No Allergies codeine Allergy (Intermediate, Verified 09/03/25 10:46) Headache Medication List - Last Reconciled 09/03/25 by Paulie Her MD ascorbic acid (vitamin C) 1 g PO DAILY aspirin 81 mg PO DAILY atorvastatin 80 mg PO DAILY 90 days bisacodyl (Dulcolax (bisacodyl)) 10 mg (2 x 5 mg) PO BEDTIME 2 days bisacodyl (Laxative (bisacodyl)) 10 mg PO BEDTIME budesonide-formoterol 160-4.5 mcg/actuation (Symbicort) 1 puff inhalation BID cyanocobalamin (vitamin B-12) 1,000 mcg PO DAILY dutasteride (Avodart) 0.5 mg PO DAILY folic acid 1 mg PO DAILY lisinopril 20 mg PO DAILY 90 days methotrexate sodium 15 mg PO QWEEK peg 3350-electrolytes 236-22.74-6.74 -5.86 gram (Golytely) 240 mL PO Q10M 1 day tamsulosin 0.4 mg PO DAILY Tobacco use date assessed: 07/10/25 Dental Screening Dental Screen Date: 07/10/25 HPI pain on the right side below the ribs HPI Details 70 y/o male presents today with complaints of R sided pain, below his ribs. Reports R sided abd. pain. Denies any blood in stools, blood in urine. Labs drawn 08/30/25. Reviewed labs with pt. Ongoing mild anemia. [facility] Medical History (Updated 09/03/25 @ 11:24 by Paulie Her MD) Screening for prostate cancer Acquired complex renal cyst Umbilical mass Screening for colon cancer CAD (coronary artery disease) Stented coronary artery Hypertension Hyperlipidemia Pre-diabetes BPH loc w urin obs/LUTS Personal history of nicotine dependence Surgical History (Updated 06/21/25 @ 08:54 by Akash Bernal [facility]) History of colonoscopy History of surgery on wrist History of umbilical hernia repair History of heart artery stent Social History Housing: House Patient Tobacco Use Status: Current someday Tobacco user Cigarette Packs Per Day: 1 Years Smoked: (onset 16yo, 1ppd x 42yrs, 40pyh - quit 2013) e-Cigarette/Vaping Use: Never Used service: No Current occupational status: retired Current occupational exposures/hazards: No Cognitive needs: No Hearing needs: No Vision needs: Yes Questionnaire Thrive Questionnaire Date Thrive assessed: 01/06/25 I am a: Patient What is your living situation today?: I have a steady place to live Within the past 12 months, did the food you bought not last and you didn't have the money to get more?: Never true Within the past 12 months, did you worry whether your food would run out before you got money to buy more?: Never true Do you have trouble paying for medicines?: No Do you have trouble getting transportation to medical appointments?: No Do you have trouble paying your heating and electricity bill?: No Do you have trouble taking care of your child, family member or friend?: No Do you have trouble with day-to-day activities such as bathing, preparing meals, shopping, managing finances, etc.?: No Are you currently unemployed and looking for a job?: No Are you interested in more education?: No Please select the resources that you would like help with: None Currently or been in a relationship where the following occur: I choose not to answer THRIVE Score: 0 OTONIEL-7 AMB Questionnaire OTONIEL-7 Date OTONIEL - 7 assessed: 01/09/25 Source: Developed by Drs. Aba Larsen, Soraya Marcelino, Indra Duran and colleagues, with an educational lisette from [employer]. Review of Systems Const Denies chills, Denies fatigue, Denies fever(s), Denies headache(s) and Denies weakness ENT Denies dizziness and Denies headache(s) Card Denies dyspnea Resp Denies cough, Denies dyspnea, Denies wheezing and Denies other (shortness of breath) GI Reports abdominal pain Musc Denies numbness and Denies tingling Neuro Denies dizziness, Denies headache(s), Denies numbness, Denies tingling and Denies weakness Psych Denies anxiety and Denies depression Endo Denies fatigue Aller/Immun Denies wheezing Physical exam (Primary Care) Vital Signs: Last Vital Signs Temp 97.8 F 09/03/25 10:48 Pulse 54 09/03/25 10:48 Resp 14 09/03/25 10:48 BP 110/50 L 09/03/25 10:48 Pulse Ox 92 09/03/25 10:48 Oxygen Delivery Method Room Air 09/03/25 10:48 BMI result Body Mass Index 21.8 Tobacco/Smoking Status: Tobacco use Status Tobacco use date assessed 07/10/25 09/03/25 10:43 Patient Tobacco Use Status Current someday Tobacco 09/03/25 10:43 e-Cigarette/Vaping Use Never Used 09/03/25 10:43 Thrive Assessment: Date of Thrive Assessment Date Thrive assessed 01/06/25 09/03/25 10:43 Currently or been in a relationship where the following occur: I choose not to answer Const General: well developed; No acute distress Nutritional Appearance: well nourished Orientation/consciousness: patient oriented x3 HENMT Head: Yes normocephalic and Yes atraumatic Eyes General: appearance normal, both eyes and all related structures Pupils: Equal, round and reactive pupils present EOM: EOMs intact bilaterally Resp Effort & Inspection: normal respiratory effort Neuro General: patient oriented x3 and gait normal Cranial nerves: Yes Equal, round and reactive pupils present Psych Affect: normal affect Coding Level of Care Code Est Pt Level 4 (65912) Diagnoses Right-sided abdominal pain of unknown etiology R10.9 Mild anemia D64.9 Pre-diabetes R73.03 Screening for prostate cancer Z12.5 Hypertension I10 Assessment & Plan Assessment & Plan (1) Right-sided abdominal pain of unknown etiology: Code(s): R10.9 - Unspecified abdominal pain Category: Medical (2) Mild anemia: Code(s): D64.9 - Anemia, unspecified Category: Medical (3) Pre-diabetes: Code(s): R73.03 - Prediabetes Category: Medical (4) Screening for prostate cancer: Code(s): Z12.5 - Encounter for screening for malignant neoplasm of prostate Category: Medical (5) Hypertension: Code(s): I10 - Essential (primary) hypertension Category: Medical Plan Right upper quadrant pain which is intermittent. Patient does not associate it with anything. Will check abdominal ultrasound and also x-ray of right ribs. Will check labs including liver enzymes, alk-phos lipase, CBC, LDH Also checking urinalysis Will call patient if imaging or lab work requires action. Otherwise he will follow-up at his scheduled appointment in September. A1c 5.9%. Still in pre diabetes range. Continue working at diet low in sugars and starches Blood pressure is controlled. Goal is less than 130/80. No adverse effects on lisinopril. His utility clerk recommends a small dose of metoprolol. Will start metoprolol XR 25 mg daily. Watch for any dizziness. Hydrate well He will call me if he has any problems. Orders: Orders Complete Blood Count Auto Diff Today R10.9 - Unspecified abdominal pain, Z00.00 - Encounter for general adult medical examination without abnormal findings UA CC w/rflx Micro + Cult Today R10.9 - Unspecified abdominal pain, Z00.00 - Encounter for general adult medical examination without abnormal findings Lipase Today R10.9 - Unspecified abdominal pain US abdomen complete Today R07.81 - Pleurodynia, R10.9 - Unspecified abdominal pain Comprehensive Met. Panel Today R10.9 - Unspecified abdominal pain Lactate Dehydrogenase Today R10.9 - Unspecified abdominal pain XR ribs RT 2V Today R10.9 - Unspecified abdominal pain Medications: New metoprolol succinate ER 25 mg PO DAILY 90 tabs 2RF 90 days I10 - Essential (primary) hypertension
[2025-09-03 10:48] VITALS: BP 110/50; PULSE 54; RESP 14; TEMP 36.6; O2SAT 92; BMI 21.8
--- OUTSIDE RECORDS SUMMARY | 2025-09-03 12:31 | XMS_ITS | Encounter Summary ---
Author Organization [facility] Address [address] [place] [address] Phone Care Team Providers Care Set And Exhibit Designer Name Role Phone Akash Schulz PA-C Primary Care Provider [phone] Vaughn Reyes MD Unavailable [phone] Layne Heller Primary Care Provider Ayaka French TOBACCO FLAVORER Primary Care Provi larry Unavailable Magali Maxwell NP Primary Care Provider [phone] Encounter Details Date Type Department Care Team (Late st Contact Info) Description 06/22/2018 Procedure Pass [place] Admitting Dept - Virtual Department [address] [place] [address] Social History Tobacco Use Types Packs/Day Years [...] on filedocumented in this encounter Care Teams Set And Exhibit Designer Relationship Specialty Start Date End Date Akash Schulz PA-C [address] [facility] [address] [place] [address] PCP - General 09/21/17 09/13/19 Layne Heller PA [address] [facility] [address] [place] [address] PCP - General Unknown Provider Specialty 09/14/19 06/14/22 Ayaka French NP PCP - General Family Medicine 06/15/22 10/12/22 Magali Maxwell NP [address] [facility] 204 [place] [address] PCP - General Family Medicine 10/13/22 Vaughn Reyes MD [address] [place] [phone] [email or web address] Assigned Provider 01/22/18 01/28/19 documented as of this encounter Additional Source Comments The information contained in this document represents components of the legal health record. It is not the complete legal health record.[facility]
--- OUTSIDE RECORDS SUMMARY | 2025-09-03 12:31 | XMS_ITS | Encounter Summary ---
Author Organization [facility] Address [address] [place] [address] Phone Care Team Providers Care Navy Airspace Officer Name Role Phone Akash Schulz PA-C Primary Care Provider [phone] Vaughn Reyes MD Unavailable [phone] Layne Heller Primary Care Provider Ayaka French AREA OPERATIONS DIRECTOR Primary Care Provi larry Unavailable Magali Maxwell NP Primary Care Provider [phone] Encounter Details Date Type Department Care Team (Late st Contact Info) Description 07/05/2018 Ancillary Orders [address] [address] Magali Goodman PA-C [address] [place] [address] Orthopedics & Sports Medicine, [facility] [place] [address] [email or web address] Finger pain, left Social History [...] limb documented in this encounter Care Teams [employer] Airspace Officer Relationship Specialty Start Date End Date Akash Schulz PA-C [address] [place] [address] 1 [place] [address] PCP - General 09/21/17 09/13/19 Layne Heller PA [address] [place] [address] [address] [place] [address] PCP - General Unknown Provider Specialty 09/14/19 06/14/22 Ayaka French NP PCP - General Family Medicine 06/15/22 10/12/22 Magali Maxwell NP [address] [facility] 204 [place] [address] PCP - General Family Medicine 10/13/22 Vaughn Reyes MD [address] [place] [phone] [email or web address] Insurance Assigned Provider 01/22/18 01/28/19 documented as of this encounter Additional Source Comments The information contained in this document represents components of the legal health record. It is not the complete legal health record.[facility]
--- OUTSIDE RECORDS SUMMARY | 2025-09-03 12:31 | XMS_ITS | Encounter Summary ---
Author Organization [facility] Address [address] [place] [address] Phone Care Team Providers Care Turkish Line Attendant Name Role Phone Akash Schulz PA-C Primary Care Provider [phone] Vaughn Reyes MD Unavailable [phone] Layne Heller Primary Care Provider [phone] Ayaka French CHAIR FRAME BUILDER Primary Care Provi larry Unavailable Magali Maxwell NP Primary Care Provider [phone] Encounter Details Date Type Department Care Team (Late st Contact Info) Description 05/13/2018 Prep for Surgery [facility] Orthopedics & Sports Medicine [address] [place] [address] Viry Mccabe MD [address] [place] [address] Orthopedics & Sports Medicine, [facility] [place] [address] Social History Tobacco Use Types Packs/Day Years [...] on filedocumented in this encounter Care Teams Turkish Line Attendant Relationship Specialty Start Date End Date Akash Schulz PA-C [address] [place] [address] [address] [place] [address] PCP - General 09/21/17 09/13/19 Layne Heller PA [address] [place] [address] [address] [place] [address] PCP - General Unknown Provider Specialty 09/14/19 06/14/22 Ayaka French NP PCP - General Family Medicine 06/15/22 10/12/22 Magali Maxwell NP [address] [place] [address] PCP - General Family Medicine 10/13/22 Vaughn Reyes MD [address] [place] [phone] [email or web address] Assigned Provider 01/22/18 01/28/19 documented as of this encounter Additional Source Comments The information contained in this document represents components of the legal health record. It is not the complete legal health record.[facility]
--- OUTSIDE RECORDS SUMMARY | 2025-09-03 12:31 | XMS_ITS | Encounter Summary ---
Author Organization [facility] Address [address] [place] [address] Phone Care Team Providers Care Foil Spooler Name Role Phone Akash Schulz PA-C Primary Care Provider [phone] Vaughn Reyes MD Unavailable [phone] Layne Heller Primary Care Provider Ayaka French FOUNDER PRESIDENT AND CEO Primary Care Provi larry Unavailable Magali Mxawell NP Primary Care Provider [phone] Encounter Details Date Type Department Care Team (Late st Contact Info) Description 07/05/2018 Ancillary Orders [facility] Orthopedics & Sports Medicine [address] [place] [address] Magali Goodman PA-C [address] [place] [address] Orthopedics & Sports Medicine, [facility] [place] [address] [email or web address] Social History Tobacco Use Types Packs/Day Years [...] on filedocumented in this encounter Care Teams Foil Spooler Relationship Specialty Start Date End Date Akash Schulz PA-C [address] [place] [address] [address] [place] [address] PCP - General 09/21/17 09/13/19 Layne Heller PA [address] [place] [address] 234 [place] [address] PCP - General Unknown Provider Specialty 09/14/19 06/14/22 Ayaka French NP PCP - General Family Medicine 06/15/22 10/12/22 Magali Maxwell NP [address] [place] [address] PCP - General Family Medicine 10/13/22 Vaughn Reyes MD [address] [place] [phone] [email or web address] Insurance Assigned Provider 01/22/18 01/28/19 documented as of this encounter Additional Source Comments The information contained in this document represents components of the legal health record. It is not the complete legal health record.[facility]
--- OUTSIDE RECORDS SUMMARY | 2025-09-03 12:31 | XMS_ITS | Clinical Summary ---
Author Organization [facility] Address [address] [place] [address] Phone Care Team Providers Care Exhibit Artist Name Role Phone Jennifer Quiroz MD Primary [...] Date Diagnosed Date Pulmonary emphysema (CMS/HCC V24, [facility] V28) 0 01/04/2024 Essential hypertension 01/04/2024 HLD (hyperlipidemia) 01/04/2024 Enlarged prostate without lo wer urinary tract symptoms (luts) 01/04/2024 Rheumatoid arthritis ([facility] V24, [facility] V28) 01/04/2024 CAD (coronary atherosclerotic disease) 6 Overview (10/13/2024): with stents Immunizations Immunization Administration Dates Next Due COVID-19 (Pfizer/Comirnaty) 10yo [...] atherosclerotic disease); COMMENT: with stents Pulmonary emphysema ([facility] V24, [facility] V28) DX:Pulmonary emphysema (HCC) History of elevated [...] Years Used Date Smoking Tobacco: Former Cigarettes 1 Q uit: 10/25/2014 Smokeless Tobacco: Never Alcohol [...] RSV Immunization Adult Patients (1 - Risk 50-74 years 1-dose series) 2003 09/10/2023 Zoster Vaccines (2 of 3) 07/08/2015 [...] Result * Falls Risk Assessment (01/04/2024) Pathologist [facility] [place] Risk Assessment abstracted Historical Provider HEALTH MAINTENANCE Final Result * Depression Screening (01/04/2024) Pathologist [facility] Depression Screening abstracted Historical Provider HEALTH MAINTENANCE Final Result * CT LUNG SCREENING LOW DOSE (10/11/2023 4:23 AM EST) Anatomical Region Laterality Modality Computed Tomogra phy 09/30/2023 7:43 AM EST Narrative 10/11/2023 4:23 AM EST [facility] Diagnostic Imaging Department [address] [place], [place] [id number] Patient: SEDRICK HOWE /Age/Sex: 1955 - 68 - M Unit#: [id number] Location/Status: SPDICATLS/REG CLI Mnemonic/Ordering Site: [facility] Ordering Physician: TREVON DONATO MD CT Lung Screening Low Dose - 09/30/2381 Report Status:Signed Indication: Greater than 20 total [...] Note Alex Malin MD - 11/30/2023 [facility] Diagnostic Imaging Department [address] [place] [address] Patient: SEDRICK HOWE Derrell LockeB./Age/Sex: 1955 - 68 - M Unit#: [id number] Location/Status: SPDICATLS/REG CLI Mnemonic/Ordering Site: [facility] Ordering Physician: TREVON DONATO [...] 10/11/239 Sign date/Time: 10/11/23422 Trevon Donato MD [facility] PROCEDURES Final Result * Colonoscopy (09/14/2019) Colonoscopy no interpretation , abstracted Anatomical Region Laterality Modality Other Historical Provider HEALTH MAINTENANCE Final Result from Last 3 Months or Most Recently Relevant to Health Maintenance Insurance [employer] MEDICARE Care Teams Exhibit Artist Relationship Specialty Start Date End Date Jennifer Quiroz MD [address] [place] [address] PCP - General Internal Medicine 10/04/24
--- OUTSIDE RECORDS SUMMARY | 2025-09-03 12:32 | XMS_ITS | Clinical Summary ---
Author Organization [facility] Address [address] [place] [address] Phone Care Team Providers Care Fitter Helper Name Role Phone Magali Maxwell NP Primary Care Provider [phone] Allergies Active Allergy Reactions Criticality Noted Date [...] SAME MEAL Active cyanocobalamin/fol ic acid (VITAMIN R50-SCWXV ACID) 1,000-400 mcg Lozg 1 tablet. A [...] like to get the blood work from [facility] to make sure his LDL is improved [...] patient's age to complete this topic IPV VACCINES Aged Out No longer eligi ble based on patient's age to complete this topic MENINGOCOCCAL VACCINES (ACWY) Aged Out No longer eligible based on patient's age to complete this topic MENINGOCOCCAL VACCINES (B) Aged Out N o longer eligible based on patient's age to complete this topic Medical Devices Implanted Type Area Head Grinder Device Identifier Shelf Expiration Date Model / Serial / Lot Cardiac Stents Mesh In Abdomen Minburn Suture 2.3mmxsz 0 Absorbable Ethibond Mini Minburn - [id number] Implanted:Qty: 1 on 10/13/2017 by Viry Mccabe MD at [facility] Right: Hand [employer] 06/24/2021 [id number] / / [id number] Minburn Suture 0 Os2 36in 2.3mm Arthroscopy Ethibond Quickanchor Double Arm Mini Absorbable - [id number] Implanted:Qty: 1 on 06/22/2018 by Viry Mccabe MD at [facility] Left: Hand [employer] 09/23/2022 [id number] / / [id number] Procedures Procedure Name Priority Date/Time Associated Diagnosis Comments ENDOSCOPY, COLON 09/14/2019 10:2 9 AM EST BASIC METABOLIC PANEL (BMP) Routine 01/09/2019 10:51 AM EDT Benign essential hypertension from Last 3 Months or Most Recently Relevant to Health Maintenance Results * ENDOSCOPY, COLON (09/14/2019 10:29 AM EST) Narrative Transcriptions Stephan Mijares MD - 09/14/2019 10:29 AM EST Patient Name: Jorge Delvalle Attending MD:: STEPHAN MIJARES MD Procedure Date: 09/14/2019 10:29AM Date of : 1955 Age: 64 Admit Type: Outpatient Gender: Male Room: [place] [address] Referring MD: Layne Heller PA-C Exam Type: [...] monitored continuously. The Olympus adult variable colonoscope [id number] #3 was introduced through the anus and [...] 10:29 AM Procedure Code(s): --- Professional --- 19237, Colonoscopy, flexible; diagnostic, including collection of specimen(s) by brushing or washing, when performed (separateprocedure) --- Technical --- 33513, Colonoscopy, flexible; diagnostic, including collection of specimen(s) by brushing or washing, when performed (separateprocedure) Diagnosis Code(s): --- Professional --- Z12.11, Encounter for screening for malignant neoplasm of colon K57.30, Diverticulosis of large intestine without perforation orabscess without bleeding --- Technical --- Z12.11, Encounter for screening for malignant neoplasm of colon K57.30, Diverticulosis of large intestine without perforation orabscess without bleeding CPT copyright 2018 [employer]. All rights reserved. The codes documented in this report are preliminary and upon auto dealership porter reviewmay be revised to meet current compliance requirements. [address] [place] [address] Layne MORTON GI PROCEDURE ORDERABLES Fin al Result * (ABNORMAL) Basic metabolic panel (01/09/2019 10:51 AM EDT) SODIUM 143 133 - 146 mmol/L [facility] CHLORIDE 103 96 - 108 mmol/L [facility] POTASSIUM 4.7 3.3 - 5.1 mmol/L [facility] CO2 24 21 - 35 mmol/L [facility] BUN 19 6 - 19 mg/dL [facility] CREATININE 0.70 0.5 - 1.5 mg/dL [facility] GLUCOSE 97 70 - 99 mg/dL [facility] CALCIUM 8.7 8.4 - 10.3 mg/dL [facility] EGFR 99 >59 mL/min/1.7 3m2 [facility] Comment:If patient is black, multiply result by 1.159. Estimated glomerular filtration rate calculated using the CKD-EPI equation. ANION GAP 21(H) 10 - 20 mmol/L [facility] Blood 01/09/2019 10:5 1 AM EDT 01/09/2019 10:53 AM EDT Kristy MORTON LAB BLOOD BKR ORDERABLES F inal Result [address] [address] from Last 3 Months or Most Recently Relevant to Health Maintenance [place] [address] [address] [place] [address] MEDICARE REPLACEMENT MEDICARE REPLACEMENT [facility] MEDICARE REPLAC[place] [address] [place] [address] MEDICARE REPLACEMENT MEDICARE REPLACEMENT [facility] MEDICARE REPLACEMENT MEDICARE REPLACEMENT MEDICARE REPLACEMENT Advance Directives For more information, please contact: [phone] (9AM - 5PM [facility], Wednesday-Wednesday) * Full Code (Presumed) (Latest Code Status on File) Date Activated Date Inactivated Comments 10/13/2017 8:59 AM 10/13/2017 3:11 PM Care Teams Fitter Helper Relationship Specialty Start Date End Date Magali Maxwell NP [address] [place] [address] PCP - General Family Medicine 10/13/22 Additional Source Comments The information contained in this document represents components of the legal health record. It is not the complete legal health record.[facility]
--- OUTSIDE RECORDS SUMMARY | 2025-09-03 12:33 | XMS_ITS | Encounter Summary ---
Author Organization [facility] Address [address] [place] [address] Phone Care Team Providers Care Sap Security Architect Name Role Phone Akash Schulz PA-C Primary Care Provider [phone] Vaughn Reyes MD Unavailable [phone] Layne Heller Primary Care Provider Ayaka French WIRE STRIPPER Primary Care Provi larry Unavailable Magali Maxwell NP Primary Care Provider [phone] Encounter Details Date Type Department Care Team (Late st Contact Info) Description 10/21/2017 Ancillary Orders [address] [address] Magali Goodman PA-C [address] [place] [address] Orthopedics & Sports Medicine, [facility] [place] [address] [email or web address] Pain of finger, unspecified laterality Social History [...] laterality documented in this encounter Care Teams Sap Security Architect Relationship Specialty Start Date End Date Akash Schulz PA-C [address] [place] [address] 1 [place] [address] PCP - General 09/21/17 09/13/19 Layne Heller PA [address] [place] [address] 234 [place] [address] PCP - General Unknown Provider Specialty 09/14/19 06/14/22 Ayaka French NP PCP - General Family Medicine 06/15/22 10/12/22 Magali Maxwell NP [address] [place] [address] 204 [place] [address] PCP - General Family Medicine 10/13/22 Vaughn Reyes MD [address] [place] [phone] [email or web address] Insurance Assigned Provider 01/22/18 01/28/19 documented as of this encounter Additional Source Comments The information contained in this document represents components of the legal health record. It is not the complete legal health record.[facility]
--- OUTSIDE RECORDS SUMMARY | 2025-09-03 12:33 | XMS_ITS | Encounter Summary ---
Author Organization [facility] Address [address] [facility] [address] [place] [address] Phone Care Team Providers Care Dental Nurse Name Role Phone Akash Schulz PA-C Primary Care Provider [phone] Vaughn Reyes MD Unavailable [phone] Layne Heller Primary Care Provider Ayaka French CARBON LAMP CLEANER Primary Care Provi larry Unavailable Magali Maxwell NP Primary Care Provider [phone] Encounter Details Date Type Department Care Team (Late st Contact Info) Description 10/13/2017 Procedure Pass [place] Admitting Dept - Virtual Department [address] [place] [address] Social History Tobacco Use Types Packs/Day Years [...] on filedocumented in this encounter Care Teams Dental Nurse Relationship Specialty Start Date End Date Akash Schulz PA-C [address] [facility] [address] [place] [address] PCP - General 09/21/17 09/13/19 Layne Heller PA [address] [facility] [address] [place] [address] PCP - General Unknown Provider Specialty 09/14/19 06/14/22 Ayaka French NP PCP - General Family Medicine 06/15/22 10/12/22 Magali Maxwell NP [address] [facility] 204 [place] [address] PCP - General Family Medicine 10/13/22 Vaughn Reyes MD [address] [place] [phone] [email or web address] Assigned Provider 01/22/18 01/28/19 documented as of this encounter Additional Source Comments The information contained in this document represents components of the legal health record. It is not the complete legal health record.[facility]
--- OUTSIDE RECORDS SUMMARY | 2025-09-03 12:33 | XMS_ITS | Encounter Summary ---
Author Organization [facility] Address [address] [place] [address] Phone Care Team Providers Care Ethologist Name Role Phone Akash Schulz PA-C Primary Care Provider [phone] Vaughn Reyes MD Unavailable [phone] Layne Heller Primary Care Provider [phone] Ayaka French FUGITIVE DETECTIVE Primary Care Provi larry Unavailable Magali Maxwell NP Primary Care Provider [phone] Encounter Details Date Type Department Care Team (Late st Contact Info) Description 10/21/2017 Ancillary Orders [facility] Orthopedics & Sports Medicine [address] [place] [address] Magali Goodman PA-C [address] [place] [address] Orthopedics & Sports Medicine, [place] [address] [email or web address] Social History Tobacco Use Types Packs/Day Years [...] on filedocumented in this encounter Care Teams Ethologist Relationship Specialty Start Date End Date Akash Schulz PA-C [address] [place] [address] [address] [place] [address] PCP - General 09/21/17 09/13/19 Layne Heller PA [address] [place] [address] 234 [place] [address] PCP - General Unknown Provider Specialty 09/14/19 06/14/22 Ayaka French NP PCP - General Family Medicine 06/15/22 10/12/22 Magali Maxwell NP [address] [place] [address] PCP - General Family Medicine 10/13/22 Vaughn Reyes MD [address] [place] [phone] [email or web address] Insurance Assigned Provider 01/22/18 01/28/19 documented as of this encounter Additional Source Comments The information contained in this document represents components of the legal health record. It is not the complete legal health record.[facility]
--- OUTSIDE RECORDS SUMMARY | 2025-09-03 12:33 | XMS_ITS | Encounter Summary ---
Author Organization [facility] Address [address] [place] [address] Phone Care Team Providers Care Bender Machine Name Role Phone Akash Schulz PA-C Primary Care Provider [phone] Vaughn Reyes MD Unavailable [phone] Layne Heller Primary Care Provider Ayaka French LIGHTING DIRECTOR Primary Care Provi larry Unavailable Magali Maxwell NP Primary Care Provider [phone] Encounter Details Date Type Department Care Team (Latest Contact Info) Description 09/21/2017 Prep for Surgery [facility] Orthopedics & Sports Medicine [address] [place] [address] Viry Mccabe MD [address] [place] [address] Orthopedics & Sports Medicine, [facility] [place] [address] Arthritis of carpometacarpal (CMC) joints of both [...] Primary documented in this encounter Care Teams Bender Machine Relationship Specialty Start Date End Date Akash Schulz PA-C [address] [place] [address] [address] [place] [address] PCP - General 09/21/17 09/13/19 Layne Heller PA [address] [place] [address] 234 [place] [address] PCP - General Unknown Provider Specialty 09/14/19 06/14/22 Ayaka French NP PCP - General Family Medicine 06/15/22 10/12/22 Magali Maxwell NP [address] [place] [address] PCP - General Family Medicine 10/13/22 Vaughn Reyes MD [address] [place] [phone] [email or web address] Assigned Provider 01/22/18 01/28/19 documented as of this encounter Additional Source Comments The information contained in this document represents components of the legal health record. It is not the complete legal health record.[facility]
--- OUTSIDE RECORDS SUMMARY | 2025-09-03 12:33 | XMS_ITS | Encounter Summary ---
Author Organization [facility] Address [address] [place] [address] Phone Care Team Providers Care Director Data Architecture Name Role Phone Layne Heller Primary Care Provider Ayaka French MELTER ASSISTANT Primary Care Provi larry [facility] Magali Maxwell MELTER ASSISTANT Primary Care Provider [phone] Encounter Details Date Type Department Care Team (Late st Contact Info) Description 09/14/2019 Procedure Pass [facility] Endoscopy Admitting Dept Virtual Department [address] [place] [address] Social History Tobacco Use Types Packs/Day Years [...] filedocumented in this encounter Care Teams Director Data Architecture Relationship Specialty Start Date End Date Layne Heller PA [address] [place] [address] PCP - General Unknown Provider Specialty 09/14/19 06/14/22 Ayaka French NP PCP - General Family Medicine 06/15/22 10/12/22 Magali Maxwell NP [address] [address] [place] [address] PCP - General Family Medicine 10/13/22 documented as of this encounter Additional Source Comments The information contained in this document represents components of the legal health record. It is not the complete legal health record.[facility]
== END 2025-09-03 11:20 | disposition home or self-care (01) ==
LOC: HO.HMCFM 10:38
PROVIDERS: PCP Family Medicine; Visit Provider Family Medicine
DX: R10.9 Unspecified abdominal pain (principal); D64.9 Anemia, unspecified; R73.03 Prediabetes; Z12.5 Encounter for screening for malignant neoplasm of prostate; I10 Essential (primary) hypertension

== ENCOUNTER 2025-09-06 12:30 | Outpatient (REF) | payer OTHER, SELFPAY ==
--- NOTE | ~2025-09-06 | US_ITS ---
EXAMINATION: US EXTRACRANIAL CAROTID DUPLEX, BILATERAL CLINICAL INFORMATION: Z00.00. Coronary artery disease. Hypertension. COMPARISON: None available. TECHNIQUE: Real-time ultrasound and Doppler techniques (integrating B-mode 2-D vascular images, Doppler spectral analysis and color-flow Doppler imaging) were utilized to interrogate the extracranial carotid arteries, the vertebral arteries and proximal subclavian arteries bilaterally. The degree of stenosis is determined by criteria similar to NASCET. FINDINGS: Right Side: 1. There is mild mixed atherosclerotic plaque seen in the bifurcation/proximal ICA region. 2. The common carotid artery PSV proximally is 135 cm/s and distally 88 cm/s. 3. The proximal internal carotid artery velocities are 144 cm/s systolic and 32 cm/s diastolic. 4. The proximal external carotid artery PSV is a 3 cm/s. 5. The vertebral artery shows antegrade flow. 6. The subclavian artery waveforms are normal. ICA/CCA ratio: 0.75. Left Side: 1. There is mild to moderate mixed atherosclerotic plaque seen in the bifurcation/proximal ICA region. 2. The common carotid artery PSV proximally is 104 cm/s and distally 101 cm/s. 3. The proximal internal carotid artery velocities are 131 cm/s systolic and 23 cm/s diastolic. 4. The proximal external carotid artery PSV is 121 cm/s. 5. The vertebral artery shows antegrade flow. 6. The subclavian artery waveforms are normal. ICA/CCA ratio: 1.13. US/US carotid duplex BI IMPRESSION: 1. RIGHT: 0-49% stenosis by ultrasound criteria. 2. LEFT: 0-49% stenosis by ultrasound criteria. Electronically signed by: Richi Wise MD 09/06/2025 01:32 PM EST
--- OUTSIDE RECORDS SUMMARY | 2025-09-06 15:39 | XMS_ITS | Encounter Summary ---
Author Organization [facility] Address [address] [place] [address] Phone Care Team Providers Care Networking Specialist Name Role Phone Akash Schulz PA-C Primary Care Provider [phone] Vaughn Reyes MD Unavailable [phone] Layne Heller Primary Care Provider Ayaka French INSECTICIDE EXPERT Primary Care Provi larry Unavailable Magali Maxwell NP Primary Care Provider [phone] Encounter Details Date Type Department Care Team (Late st Contact Info) Description 10/21/2017 Ancillary Orders [facility] Orthopedics & Sports Medicine [address] [place] [address] Magali Goodman PA-C [address] [place] [address] Orthopedics & Sports Medicine, [facility] [place] [address] [email or web address] Social History Tobacco Use Types Packs/Day Years [...] on filedocumented in this encounter Care Teams Networking Specialist Relationship Specialty Start Date End Date Akash Schulz PA-C [address] [place] [address] [address] [place] [address] PCP - General 09/21/17 09/13/19 Layne Heller PA [address] [place] [address] 234 [place] [address] PCP - General Unknown Provider Specialty 09/14/19 06/14/22 Ayaka French NP PCP - General Family Medicine 06/15/22 10/12/22 Magali Maxwell NP [address] [place] [address] PCP - General Family Medicine 10/13/22 Vaughn Reyes MD [address] [place] [phone] [email or web address] Assigned Provider 01/22/18 01/28/19 documented as of this encounter Additional Source Comments The information contained in this document represents components of the legal health record. It is not the complete legal health record.[facility]
--- OUTSIDE RECORDS SUMMARY | 2025-09-06 15:39 | XMS_ITS | Clinical Summary ---
Author Organization [facility] Address [address] [place] [address] Phone Care Team Providers Care Maintenance Shop Laborer Name Role Phone Jennifer Quiroz MD Primary [...] Date Diagnosed Date Pulmonary emphysema (CMS/HCC V24, [facility] V28) 0 01/04/2024 Essential hypertension 01/04/2024 HLD (hyperlipidemia) 01/04/2024 Enlarged prostate without lo wer urinary tract symptoms (luts) 01/04/2024 Rheumatoid arthritis ([facility] V24, [facility] V28) 01/04/2024 CAD (coronary atherosclerotic disease) 6 [...] atherosclerotic disease); COMMENT: with stents Pulmonary emphysema ([facility] V24, [facility] V28) DX:Pulmonary emphysema (HCC) History of elevated [...] Result * Depression Screening (01/04/2024) Pathologist [facility] Depression Screening abstracted Historical Provider HEALTH MAINTENANCE Final Result * CT LUNG SCREENING LOW DOSE (10/11/2023 4:23 AM EST) Anatomical Region Laterality Modality Computed Tomogra phy 09/30/2023 7:43 AM EST Narrative 10/11/2023 4:23 AM EST [facility] Diagnostic Imaging Department [address] [place], [place] [address] Patient: SEDRICK HOWE /Age/Sex: 1955 - 68 - M Unit#: [id number] Location/Status: SPDICATLS/REG CLI Mnemonic/Ordering Site: [facility] Ordering Physician: TREVON DONATO MD CT Lung Screening Low Dose - 09/30/2359 Report Status:Signed Indication: Greater than 20 total [...] [facility] Diagnostic Imaging Department [address] [place] [address] Patient: SEDRICK HOWE Derrell LockeB./Age/Sex: 1955 - 68 - M Unit#: [id number] Location/Status: SPDICATLS/REG CLI Mnemonic/Ordering Site: [facility] Ordering Physician: TREVON DONATO MD [...] 10/11/239 Sign date/Time: 10/11/23422 Trevon Donato MD [facility] PROCEDURES Final Result * Colonoscopy (09/14/2019) Colonoscopy no interpretation , abstracted Anatomical Region Laterality Modality Other Historical Provider HEALTH MAINTENANCE Final Result from Last 3 Months or Most Recently Relevant to Health Maintenance Insurance [employer] MEDICARE Care Teams Maintenance Shop Laborer Relationship Specialty Start Date End Date Jennifer Quiroz MD [address] [place] [address] PCP - General Internal Medicine 10/04/24
--- OUTSIDE RECORDS SUMMARY | 2025-09-06 15:39 | XMS_ITS | Encounter Summary ---
Author Organization [facility] Address [address] [place] [address] Phone Care Team Providers Care Hose Seamer Name Role Phone Akash Schulz PA-C Primary Care Provider [phone] Vaughn Reyes MD Unavailable [phone] Layne Heller Primary Care Provider [phone] Ayaka French TUBE CLEANER Primary Care Provi larry Unavailable Magali Maxwell NP Primary Care Provider [phone] Encounter Details Date Type Department Care Team (Latest Contact Info) Description 09/21/2017 Prep for Surgery [facility] Orthopedics & Sports Medicine [address] [place] [address] Viry Mccabe MD [address] [place] [address] Orthopedics & Sports Medicine, [facility] [place] [address] Arthritis of carpometacarpal (CMC) joints of both [...] Primary documented in this encounter Care Teams Hose Seamer Relationship Specialty Start Date End Date Akash Schulz PA-C [address] [place] [address] [address] [place] [address] PCP - General 09/21/17 09/13/19 Layne Heller PA [address] [place] [address] [address] [place] [address] PCP - General Unknown Provider Specialty 09/14/19 06/14/22 Ayaka French NP PCP - General Family Medicine 06/15/22 10/12/22 Magali Maxwell NP [address] [place] [address] PCP - General Family Medicine 10/13/22 Vaughn Reyes MD [address] [place] [phone] [email or web address] Insurance Assigned Provider 01/22/18 01/28/19 documented as of this encounter Additional Source Comments The information contained in this document represents components of the legal health record. It is not the complete legal health record.[facility]
--- OUTSIDE RECORDS SUMMARY | 2025-09-06 15:39 | XMS_ITS | Encounter Summary ---
Author Organization [facility] Address [address] [place] [address] Phone Care Team Providers Care Superintendent Of Schools Name Role Phone Akash Schulz PA-C Primary Care Provider [phone] Vaughn Reyes MD Unavailable [phone] Layne Heller Primary Care Provider [phone] Ayaka French PATHOLOGY TRANSCRIPTIONIST Primary Care Provi larry Unavailable Magali Maxwell NP Primary Care Provider [phone] Encounter Details Date Type Department Care Team (Late st Contact Info) Description 10/21/2017 Ancillary Orders [address] [address] Magali Goodman PA-C [address] [place] [address] Orthopedics & Sports Medicine, [facility] [place] [address] [email or web address] Pain of finger, unspecified laterality Social History [...] laterality documented in this encounter Care Teams Superintendent Of Schools Relationship Specialty Start Date End Date Akash Schulz PA-C [address] [place] [address] 1 [place] [address] PCP - General 09/21/17 09/13/19 Layne Heller PA [address] [place] [address] 234 [place] [address] PCP - General Unknown Provider Specialty 09/14/19 06/14/22 Ayaka French NP PCP - General Family Medicine 06/15/22 10/12/22 Magali Maxwell NP [address] [place] [address] 204 [place] [address] PCP - General Family Medicine 10/13/22 Vaughn Reyes MD [address] [place] [phone] [email or web address] Insurance Assigned Provider 01/22/18 01/28/19 documented as of this encounter Additional Source Comments The information contained in this document represents components of the legal health record. It is not the complete legal health record.[facility]
--- OUTSIDE RECORDS SUMMARY | 2025-09-06 15:39 | XMS_ITS | Encounter Summary ---
Author Organization [facility] Address [address] [facility] [address] [place] [address] Phone Care Team Providers Care Repeat Photocomposing Machine Operator Name Role Phone Akash Schulz PA-C Primary Care Provider [phone] Vaughn Reyes MD Unavailable [phone] Layne Heller Primary Care Provider [phone] Ayaka French WET POUR SUPERVISOR Primary Care Provi larry Unavailable Magali Maxwell NP Primary Care Provider [phone] Encounter Details Date Type Department Care Team (Late st Contact Info) Description 10/13/2017 Procedure Pass [place] Admitting Dept - Virtual Department [address] [place] [address] Social History Tobacco Use Types Packs/Day Years [...] on filedocumented in this encounter Care Teams Repeat Photocomposing Machine Operator Relationship Specialty Start Date End Date Akash Schulz PA-C [address] [facility] [address] [place] [address] PCP - General 09/21/17 09/13/19 Layne Heller PA [address] [facility] 234 [place] [address] PCP - General Unknown Provider Specialty 09/14/19 06/14/22 Ayaka French NP PCP - General Family Medicine 06/15/22 10/12/22 Magali Maxwell NP [address] [facility] 204 [place] [address] PCP - General Family Medicine 10/13/22 Vaughn Reyes MD [address] [place] [phone] [email or web address] Insurance Assigned Provider 01/22/18 01/28/19 documented as of this encounter Additional Source Comments The information contained in this document represents components of the legal health record. It is not the complete legal health record.[facility]
--- OUTSIDE RECORDS SUMMARY | 2025-09-06 15:39 | XMS_ITS | Encounter Summary ---
Author Organization [facility] Address [address] [facility] [address] [place] [address] Phone Care Team Providers Care Structural Metal Fabricator Apprentice Name Role Phone Akash Schulz PA-C Primary Care Provider [phone] Vaughn Reyes MD Unavailable [phone] Layne Heller Primary Care Provider Ayaka French DELIVERY AGENT Primary Care Provi larry Unavailable Magali Maxwell NP Primary Care Provider [phone] Encounter Details Date Type Department Care Team (Late st Contact Info) Description 06/22/2018 Procedure Pass [place] Admitting Dept - Virtual Department [address] [place] [address] Social History Tobacco Use Types Packs/Day Years [...] on filedocumented in this encounter Care Teams Structural Metal Fabricator Apprentice Relationship Specialty Start Date End Date Akash Schulz PA-C [address] [facility] [address] [place] [address] PCP - General 09/21/17 09/13/19 Layne Heller PA [address] [facility] 234 [place] [address] PCP - General Unknown Provider Specialty 09/14/19 06/14/22 Ayaka French NP PCP - General Family Medicine 06/15/22 10/12/22 Magali Maxwell NP [address] [facility] 204 [place] [address] PCP - General Family Medicine 10/13/22 Vaughn Reyes MD [address] [place] [phone] [email or web address] Insurance Assigned Provider 01/22/18 01/28/19 documented as of this encounter Additional Source Comments The information contained in this document represents components of the legal health record. It is not the complete legal health record.[facility]
--- OUTSIDE RECORDS SUMMARY | 2025-09-06 15:39 | XMS_ITS | Encounter Summary ---
Author Organization [facility] Address [address] [place] [address] Phone Care Team Providers Care Nuclear Security Officer Name Role Phone Akash Schulz PA-C Primary Care Provider [phone] Vaughn Reyes MD Unavailable [phone] Layne Heller Primary Care Provider Ayaka French COACH OPERATOR Primary Care Provi larry Unavailable Magali Maxwell NP Primary Care Provider [phone] Encounter Details Date Type Department Care Team (Late st Contact Info) Description 07/05/2018 Ancillary Orders [facility] Orthopedics & Sports Medicine [address] [place] [address] Magali Goodman PA-C [address] [place] [address] Orthopedics & Sports Medicine, [facility] [place] [address] [email or web address] Social History Tobacco Use [...] on filedocumented in this encounter Care Teams Nuclear Security Officer Relationship Specialty Start Date End Date Akash Schulz PA-C [address] [place] [address] [address] [place] [address] PCP - General 09/21/17 09/13/19 Layne Heller PA [address] [place] [address] 234 [place] [address] PCP - General Unknown Provider Specialty 09/14/19 06/14/22 Ayaka French NP PCP - General Family Medicine 06/15/22 10/12/22 Magali Maxwell NP [address] [place] [address] PCP - General Family Medicine 10/13/22 Vaughn Reyes MD [address] [place] [phone] [email or web address] Insurance Assigned Provider 01/22/18 01/28/19 documented as of this encounter Additional Source Comments The information contained in this document represents components of the legal health record. It is not the complete legal health record.[facility]
--- OUTSIDE RECORDS SUMMARY | 2025-09-06 15:39 | XMS_ITS | Clinical Summary ---
Author Organization [facility] Address [address] [place] [address] Phone Care Team Providers Care Student Development Coordinator Name Role Phone Magali Maxwell NP Primary Care Provider [phone] Allergies Active Allergy Reactions Criticality Noted Date [...] SAME MEAL Active cyanocobalamin/fol ic acid (VITAMIN K70-YRLMZ ACID) 1,000-400 mcg Lozg 1 tablet. A [...] like to get the blood work from [facility] to make sure his LDL is improved [...] this topic Medical Devices Implanted Type Area Dental Coordinator Device Identifier Shelf Expiration Date Model / Serial / Lot Cardiac Stents Mesh In Abdomen Readlyn Suture 2.3mmxsz 0 Absorbable Ethibond Mini Readlyn - [id number] Implanted:Qty: 1 on 10/13/2017 by Viry Mccabe MD at [facility] Right: Hand [employer] 06/24/2021 [id number] / / [id number] Readlyn Suture 0 Os2 36in 2.3mm Arthroscopy Ethibond Quickanchor Double Arm Mini Absorbable - [id number] Implanted:Qty: 1 on 06/22/2018 by Viry Mccabe MD at [facility] Left: Hand [employer] 09/23/2022 [id number] / / [id number] Procedures Procedure Name Priority Date/Time Associated Diagnosis [...] 66 Admit Type: Outpatient Gender: Male Room: [place] [address] Referring MD: Layne Heller PA-C Exam Type: [...] monitored continuously. The Olympus adult variable colonoscope [id number] #[id number] was introduced through the anus and [...] 10:29 AM Procedure Code(s): --- Professional --- 40344, Colonoscopy, flexible; diagnostic, including collection of specimen(s) by brushing or washing, when performed (separateprocedure) --- Technical --- 54572, Colonoscopy, flexible; diagnostic, including collection of specimen(s) by brushing or washing, when performed (separateprocedure) Diagnosis Code(s): --- Professional --- Z12.11, Encounter for screening for malignant neoplasm of colon K57.30, Diverticulosis of large intestine without perforation orabscess without bleeding --- Technical --- Z12.11, Encounter for screening for malignant neoplasm of colon K57.30, Diverticulosis of large intestine without perforation orabscess without bleeding CPT copyright 2018 [employer]. All rights reserved. The codes documented in this report are preliminary and upon outdoor recreation specialist reviewmay be revised to meet current compliance requirements. [address] [place] [address] Layne MORTON GI PROCEDURE ORDERABLES Fin al Result * (ABNORMAL) Basic metabolic panel (01/09/2019 10:51 AM EDT) SODIUM 143 133 - 146 mmol/L [facility] CHLORIDE 103 96 - 108 mmol/L [facility] POTASSIUM 4.7 3.3 - 5.1 mmol/L [facility] CO2 24 21 - 35 mmol/L [facility] BUN 19 6 - 19 mg/dL [facility] CREATININE 0.70 0.5 - 1.5 mg/dL [facility] GLUCOSE 97 70 - 99 mg/dL [facility] CALCIUM 8.7 8.4 - 10.3 mg/dL [facility] EGFR 99 >59 mL/min/1.7 3m2 [facility] Comment:If patient is black, multiply result by 1.159. Estimated glomerular filtration rate calculated using the CKD-EPI equation. ANION GAP 21(H) 10 - 20 mmol/L [facility] Blood 01/09/2019 10:5 1 AM EDT 01/09/2019 10:53 AM EDT Kristy MORTON LAB BLOOD BKR ORDERABLES F inal Result [address] [address] from Last 3 Months or Most Recently Relevant to Health Maintenance Insurance [place] [address] MEDICARE REPLACEMENT MEDICARE REPLACEMENT [facility] MEDICARE REPLACEMENT [place] [address] MEDICARE REPLACEMENT MEDICARE REPLACEMENT [facility] MEDICARE REPLACEMENT MEDICARE REPLACEMENT MEDICARE REPLACEMENT Advance Directives For more information, please contact: [phone] (9AM - 5PM [facility], Wednesday-Wednesday) * Full Code (Presumed) (Latest Code Status on File) Date Activated Date Inactivated Comments 10/13/2017 8:59 AM 10/13/2017 3:11 PM Care Teams Student Development Coordinator Relationship Specialty Start Date End Date Magali Maxwell NP [address] [place] [address] PCP - General Family Medicine 10/13/22 Additional Source Comments The information contained in this document represents components of the legal health record. It is not the complete legal health record.[facility]
--- OUTSIDE RECORDS SUMMARY | 2025-09-06 15:39 | XMS_ITS | Encounter Summary ---
Author Organization [facility] Address [address] [place] [address] Phone Care Team Providers Care Public Relations Assistant Name Role Phone Akash Schulz PA-C Primary Care Provider [phone] Vaughn Reyes MD Unavailable [phone] Layne Heller Primary Care Provider Ayaka French HEEL COVER SOFTENER Primary Care Provi larry Unavailable Magali Maxwell NP Primary Care Provider [phone] Encounter Details Date Type Department Care Team (Late st Contact Info) Description 07/05/2018 Ancillary Orders [address] [address] Magali Goodman PA-C [address] [place] [address] Orthopedics & Sports Medicine, [facility] [place] [address] [email or web address] Finger pain, left Social History Tobacco Use [...] limb documented in this encounter Care Teams Public Relations Assistant Relationship Specialty Start Date End Date Akash Schulz PA-C [address] [place] [address] 1 [place] [address] PCP - General 09/21/17 09/13/19 Layne Heller PA [address] [place] [address] 234 [place] [address] PCP - General Unknown Provider Specialty 09/14/19 06/14/22 Ayaka French NP PCP - General Family Medicine 06/15/22 10/12/22 Magali Maxwell NP [address] [facility] 204 [place] [address] PCP - General Family Medicine 10/13/22 Vaughn Reyes MD [address] [place] [phone] [email or web address] Insurance Assigned Provider 01/22/18 01/28/19 documented as of this encounter Additional Source Comments The information contained in this document represents components of the legal health record. It is not the complete legal health record.[facility]
--- OUTSIDE RECORDS SUMMARY | 2025-09-06 15:39 | XMS_ITS | Encounter Summary ---
Author Organization [facility] Address [address] [place] [address] Phone Care Team Providers Care Watch Mechanic Name Role Phone Akash Schulz PA-C Primary Care Provider [phone] Vaughn Reyes MD Unavailable [phone] Layne Heller Primary Care Provider Ayaka French FUR DRY CLEANER HAND Primary Care Provi larry Unavailable Magali Maxwell NP Primary Care Provider [phone] Encounter Details Date Type Department Care Team (Late st Contact Info) Description 05/13/2018 Prep for Surgery [facility] Orthopedics & Sports Medicine [address] [place] [address] Viry Mccabe MD [address] [place] [address] Orthopedics & Sports Medicine, [facility] [place] [address] Social History Tobacco Use Types Packs/Day Years [...] on filedocumented in this encounter Care Teams Watch Mechanic Relationship Specialty Start Date End Date Akash Schulz PA-C [address] [place] [address] [address] [place] [address] PCP - General 09/21/17 09/13/19 Layne Heller PA [address] [place] [address] 234 [place] [address] PCP - General Unknown Provider Specialty 09/14/19 06/14/22 Ayaka French NP PCP - General Family Medicine 06/15/22 10/12/22 Magali Maxwell NP [address] [place] [address] PCP - General Family Medicine 10/13/22 Vaughn Reyes MD [address] [place] [phone] [email or web address] Insurance Assigned Provider 01/22/18 01/28/19 documented as of this encounter Additional Source Comments The information contained in this document represents components of the legal health record. It is not the complete legal health record.[facility]
--- OUTSIDE RECORDS SUMMARY | 2025-09-06 15:40 | XMS_ITS | Encounter Summary ---
Author Organization [facility] Address [address] [place] [address] Phone Care Team Providers Care Tank Truck Milk Receiver Name Role Phone Layne Heller Primary Care Provider Ayaka French CANNERY WORKER Primary Care Provi larry [facility] Magali Maxwell CANNERY WORKER Primary Care Provider [phone] Encounter Details Date Type Department Care Team (Late st Contact Info) Description 09/14/2019 Procedure Pass [facility] Endoscopy Admitting Dept Virtual Department [address] [place] [address] Social History Tobacco Use Types Packs/Day Years [...] on filedocumented in this encounter Care Teams Tank Truck Milk Receiver Relationship Specialty Start Date End Date Layne Heller PA [address] [place] [address] PCP - General Unknown Provider Specialty 09/14/19 06/14/22 Ayaka French NP PCP - General Family Medicine 06/15/22 10/12/22 Magali Maxwell NP [address] [address] [place] [address] PCP - General Family Medicine 10/13/22 documented as of this encounter Additional Source Comments The information contained in this document represents components of the legal health record. It is not the complete legal health record.[facility]
== END 2025-09-06 12:31 | disposition home or self-care (01) ==
LOC: HO.US 12:30
PROVIDERS: PCP Family Medicine; Visit Provider Family Medicine
DX: Z00.00 Encounter for general adult medical examination without abnormal findings (principal); I25.10 Atherosclerotic heart disease of native coronary artery without angina pectoris; I65.23 Occlusion and stenosis of bilateral carotid arteries; I10 Essential (primary) hypertension; E78.5 Hyperlipidemia, unspecified
CPT/HCPCS: 93880

== ENCOUNTER → 2025-09-06 12:32 | Outpatient (BNV) | payer OTHER, SELFPAY | PROVIDERS: PCP Family Medicine; Visit Provider Radiology Diagnostic Radiology | DX: I25.10 Atherosclerotic heart disease of native coronary artery without angina pectoris (principal); I10 Essential (primary) hypertension | CPT/HCPCS: 93880 ==

== ENCOUNTER 2025-10-03 07:53 | Outpatient (REF) | payer OTHER, SELFPAY ==
[2025-10-03 10:03] LABS: MANUAL DIFF FLAG NO
[2025-10-03 10:09] LABS: Hematocrit 41.2 % (42.0-52.0); Hemoglobin 13.3 g/dl (14.0-18.0); Imm Gran Abs Auto 0.03 X10*3/uL (0.00-0.03); Imm Gran Pct Auto 0.4 % (0.0-0.4); Lymphocytes Absolute Auto 1.3 X10*3/uL (1.2-4.9); Mean Corpuscular HGB Conc 32.3 g/dl (31.0-36.0); Mean Corpuscular Hemoglobin 29.9 pg (27.0-33.0); Mean Corpuscular Volume 92.6 fL (80.0-98.0); NRBC Abs Auto 0.000 X10*3/uL (0.0-0.012); NRBC Pct Auto 0.0 /100WBC (0.0-0.2); Platelet Count 275 X10*3/uL (160-400); Red Blood Count 4.45 X10*6/uL (4.60-5.80); White Blood Count 8.1 X10*3/uL (4.8-10.8)
[2025-10-03 10:17] LABS: Appearance Urine Clear; Glucose Urine UA Negative (Negative); PH 5.5 (5.0-9.0); Specific Gravity - Urine 1.015 (1.005-1.025)
[2025-10-03 10:27] LABS: Alanine Aminotransferase 30 U/L (0-40); Albumin Level 4.5 g/dL (3.5-5.0); Alkaline Phosphatase 106 U/L (39-117); Anion Gap 10 (12-20); Aspartate Amino Transferase 26 U/L (5-37); Blood Urea Nitrogen 21 mg/dL (9-16); Calcium 9.1 mg/dL (8.4-10.2); Carbon Dioxide 28 mmol/L (22-29); Chloride 109 mmol/L (96-108); Estimated Glomerular Filt Rate > 60; Lipase 17 U/L (8-78); Potassium 4.6 mmol/L (3.3-5.1); Sodium 142 mmol/L (135-145); Total Protein 7.1 g/dL (6.5-8.0)
== END 2025-10-03 07:54 | disposition home or self-care (01) ==
LOC: HO.HMGCLDS 07:53
PROVIDERS: PCP Family Medicine; Visit Provider Family Medicine
DX: Z00.00 Encounter for general adult medical examination without abnormal findings (principal); R10.9 Unspecified abdominal pain
CPT/HCPCS: 36415; 80053; 81003; 83615; 83690; 85025

== ENCOUNTER 2025-10-10 08:33 | Outpatient (AMB) | payer OTHER, SELFPAY ==
--- NOTE | 2025-10-10 08:37 | MHC.PC.OV ---
Vital Signs 10/10/25 08:41 Height 5 ft 10 in Weight 153 lb 8 oz BMI 22.0 BP 110/60 Blood Pressure Location Rt brachial Position Sitting Respiration 14 Pulse 51 Pulse Source Pulse Oximeter Temp 97.5 F Temp Source Temporal Artery Scan Pulse Oximetry (%) 95 Oxygen Delivery Method Room Air Intake Visit Reasons: f/u HTN, pre-diabetes Intake Note: Jorge presents in the office today for a follow up to hypertension and pre-diabetes. Diamond Assorter Required: No Allergies codeine Allergy (Intermediate, Verified 10/10/25 08:39) Headache Medication List - Last Reconciled 10/10/25 by Paulie Her MD ascorbic acid (vitamin C) 1 g PO DAILY aspirin 81 mg PO DAILY atorvastatin 80 mg PO DAILY 90 days bisacodyl (Dulcolax (bisacodyl)) 10 mg (2 x 5 mg) PO BEDTIME 2 days bisacodyl (Laxative (bisacodyl)) 10 mg PO BEDTIME budesonide-formoterol 160-4.5 mcg/actuation (Symbicort) 1 puff inhalation BID cyanocobalamin (vitamin B-12) 1,000 mcg PO DAILY dutasteride (Avodart) 0.5 mg PO DAILY folic acid 1 mg PO DAILY lisinopril 20 mg PO DAILY 90 days methotrexate sodium 15 mg PO QWEEK metoprolol succinate ER 25 mg PO DAILY 90 days peg 3350-electrolytes 236-22.74-6.74 -5.86 gram (Golytely) 240 mL PO Q10M 1 day tamsulosin 0.4 mg PO DAILY Tobacco use date assessed: 10/10/25 Fall risk assessment: No Falls in past year Last assessed Fall Risk: 10/10/25 Dental Screening Dental Screen Date: 10/10/25 Did you have a dental visit in the last 12 months?: No Did you have a dental problem in the last 6 months where you did not have access to dental care?: No Was dental information given to patient?: Patient declined HPI f/u HTN, pre-diabetes HPI Details 70 y/o male presents to f/u HTN, prediabetes. Blood pressure today 110/60, 51p. Hx of CAD. He is on lisinopril 20mg, metoprolol 25mg daily. Last A1c 08/30/25 5.9%. Labs drawn 10/03/25. Reviewed labs with pt. Mild anemia. HPI Comments History of Present Illness Details Documentation assistance for Paulie Her MD, was provided by Vince Hyman,? [employer] on 10/10/2025 at 8:52 AM EST. I, Dr. Her, have read, observed, and verified documentation. ?? PFSH Medical History (Updated 09/03/25 @ 11:24 by Paulie Her MD) Screening for prostate cancer Acquired complex renal cyst Umbilical mass Screening for colon cancer CAD (coronary artery disease) Stented coronary artery Hypertension Hyperlipidemia Pre-diabetes BPH loc w urin obs/LUTS Personal history of nicotine dependence Surgical History (Updated 06/21/25 @ 08:54 by Akash Bernal [facility]) History of colonoscopy History of surgery on wrist History of umbilical hernia repair History of heart artery stent Social History (Updated 10/10/25 @ 08:41 by Jodee Murillo [facility]) Housing: House Alcohol intake: current Patient Tobacco Use Status: Former Tobacco user Cigarette Packs Per Day: 1 Cigarettes Per Day: 20 Years Smoked: (onset 16yo, 1ppd x 42yrs, 40pyh - quit 2013) Packs Per Year: 0 Packs per year/per ci.00 e-Cigarette/Vaping Use: Never Used Second Hand Smoke Exposure: No Use of substances other than those prescribed or required for medical reasons: No service: No Current occupational status: retired Current occupational exposures/hazards: No Cognitive needs: No Hearing needs: No Vision needs: Yes Questionnaire Thrive Questionnaire Date Thrive assessed: 01/06/25 I am a: Patient What is your living situation today?: I have a steady place to live Within the past 12 months, did the food you bought not last and you didn't have the money to get more?: Never true Within the past 12 months, did you worry whether your food would run out before you got money to buy more?: Never true Do you have trouble paying for medicines?: No Do you have trouble getting transportation to medical appointments?: No Do you have trouble paying your heating and electricity bill?: No Do you have trouble taking care of your child, family member or friend?: No Do you have trouble with day-to-day activities such as bathing, preparing meals, shopping, managing finances, etc.?: No Are you currently unemployed and looking for a job?: No Are you interested in more education?: No Please select the resources that you would like help with: None Currently or been in a relationship where the following occur: I choose not to answer THRIVE Score: 0 OTONIEL-7 AMB Questionnaire OTONIEL-7 Date OTONIEL - 7 assessed: 01/09/25 Source: Developed by Drs. Aba Larsen, Soraya Marcelino, Indra Duran and colleagues, with an educational lisette from [employer]. Physical exam (Primary Care) Vital Signs: Last Vital Signs Temp 97.5 F 10/10/25 08:41 Pulse 51 10/10/25 08:41 Resp 14 10/10/25 08:41 BP 110/60 10/10/25 08:41 Pulse Ox 95 10/10/25 08:41 Oxygen Delivery Method Room Air 10/10/25 08:41 BMI result Body Mass Index 22.0 Tobacco/Smoking Status: Tobacco use Status Tobacco use date assessed 10/10/25 10/10/25 08:45 Patient Tobacco Use Status Former Tobacco user 10/10/25 08:45 e-Cigarette/Vaping Use Never Used 10/10/25 08:41 Thrive Assessment: Date of Thrive Assessment Date Thrive assessed 01/06/25 10/10/25 08:39 Currently or been in a relationship where the following occur: I choose not to answer Coding Level of Care Code Est Pt Level 4 (03086) Diagnoses Hypertension I10 CAD (coronary artery disease) I25.10 Pre-diabetes R73.03 Mild anemia D64.9 Assessment & Plan Assessment & Plan (1) Hypertension: Code(s): I10 - Essential (primary) hypertension Category: Medical Plan: Blood pressure is controlled. Goal is less than 130/80 Continue current medication Also, his carotid duplex was negative for stenoses, bilaterally (2) CAD (coronary artery disease): Code(s): I25.10 - Atherosclerotic heart disease of [place]uhaaviat[place] coronary artery without angina pectoris Category: Medical Plan: Stable (3) Pre-diabetes: Code(s): R73.03 - Prediabetes Category: Medical Plan: A1c was 5.9% less than 3 months ago. Continue working at a diet low in sugars and starches (4) Mild anemia: Code(s): D64.9 - Anemia, unspecified Category: Medical Plan: Stable Will continue to monitor
[2025-10-10 08:41] VITALS: BP 110/60; PULSE 51; RESP 14; TEMP 36.4; O2SAT 95; BMI 22.0
--- OUTSIDE RECORDS SUMMARY | 2025-10-10 08:50 | XMS_ITS | Clinical Summary ---
Author Organization [facility] Address [address] [place] [address] Phone Care Team Providers Care Electroneurodiagnostic Technician Name Role Phone Magali Maxwell NP Primary Care Provider [phone] Allergies Active Allergy Reactions Criticality Noted Date [...] SAME MEAL Active cyanocobalamin/fol ic acid (VITAMIN F41-YKSLQ ACID) 1,000-400 mcg Lozg 1 tablet. A [...] like to get the blood work from [facility] to make sure his LDL [...] this topic Medical Devices Implanted Type Area Edge Dyer Device Identifier Shelf Expiration Date Model / Serial / Lot Cardiac Stents Mesh In Abdomen [place] Suture 2.3mmxsz 0 Absorbable Ethibond Mini [place] - [id number] Implanted:Qty: 1 on 10/13/2017 by Viry Mccabe MD at [employer] Right: Hand [employer] 06/24/2021 [id number] / / [id number] [place] Suture 0 Os2 36in 2.3mm Arthroscopy Ethibond Quickanchor Double Arm Mini Absorbable - [id number] Implanted:Qty: 1 on 06/22/2018 by Viry Mccabe MD at [employer] Left: Hand [employer] 09/23/2022 [id number] / / [id number] Procedures Procedure Name Priority Date/Time Associated Diagnosis [...] 66 Admit Type: Outpatient Gender: Male Room: [place] [address] Referring MD: Layne Heller PA-C Exam Type: [...] monitored continuously. The Olympus adult variable colonoscope [id number] #3 was introduced through the anus and [...] 10:29 AM Procedure Code(s): --- Professional --- 09875, Colonoscopy, flexible; diagnostic, including collection of specimen(s) by brushing or washing, when performed (separateprocedure) --- Technical --- 71182, Colonoscopy, flexible; diagnostic, including collection of specimen(s) by brushing or washing, when performed (separateprocedure) Diagnosis Code(s): --- Professional --- Z12.11, Encounter for screening for malignant neoplasm of colon K57.30, Diverticulosis of large intestine without perforation orabscess without bleeding --- Technical --- Z12.11, Encounter for screening for malignant neoplasm of colon K57.30, Diverticulosis of large intestine without perforation orabscess without bleeding CPT copyright 2018 [employer]. All rights reserved. The codes documented in this report are preliminary and upon inpatient coder reviewmay be revised to meet current compliance requirements. [address] [place] [address] Layne MORTON GI PROCEDURE ORDERABLES Fin al Result * (ABNORMAL) Basic metabolic panel (01/09/2019 10:51 AM EDT) SODIUM 143 133 - 146 mmol/L [facility] CHLORIDE 103 96 - 108 mmol/L [facility] POTASSIUM 4.7 3.3 - 5.1 mmol/L [facility] CO2 24 21 - 35 mmol/L [facility] BUN 19 6 - 19 mg/dL [facility] CREATININE 0.70 0.5 - 1.5 mg/dL [facility] GLUCOSE 97 70 - 99 mg/dL [facility] CALCIUM 8.7 8.4 - 10.3 mg/dL [facility] EGFR 99 >59 mL/min/1.7 3m2 [facility] Comment:If patient is black, multiply result by 1.159. Estimated glomerular filtration rate calculated using the CKD-EPI equation. ANION GAP 21(H) 10 - 20 mmol/L [facility] Blood 01/09/2019 10:5 1 AM EDT 01/09/2019 10:53 AM EDT Kristy MORTON LAB BLOOD BKR ORDERABLES F inal Result [address] [address] from Last 3 Months or Most Recently Relevant to Health Maintenance Insurance PPO AARP MEDICARE REPLACEMENT MEDICARE REPLACEMENT [facility] [place] MED[facility]ARE REPLACEMENT [facility] [place] MEDICARE REPLACEMENT MEDICARE REPLACEMENT MEDICARE REPLACEMENT [facility] MEDICARE REPLACEMENT MEDICARE REPLACEMENT MEDICARE REPLACEMENT Advance Directives For more information, please contact: [phone] (9AM - 5PM [facility], Wednesday-Wednesday) * Full Code (Presumed) (Latest Code Status on File) Date Activated Date Inactivated Comments 10/13/2017 8:59 AM 10/13/2017 3:11 PM Care Teams Electroneurodiagnostic Technician Relationship Specialty Start Date End Date Magali Maxwell NP [address] [address] PCP - General Family Medicine 10/13/22 Additional Source Comments The information contained in this document represents components of the legal health record. It is not the complete legal health record.[facility]
--- OUTSIDE RECORDS SUMMARY | 2025-10-10 08:50 | XMS_ITS | Encounter Summary ---
Author Organization [facility] Address [address] [facility] [address] [place] [address] Phone Care Team Providers Care Plasterer Spray Gun Name Role Phone Akash Schulz PA-C Primary Care Provider [phone] Vaughn Reyes MD Unavailable [phone] Layne Heller Primary Care Provider Ayaka French SADDLE TREE STITCHER Primary Care Provi larry Unavailable Magali Maxwell NP Primary Care Provider [phone] Encounter Details Date Type Department Care Team (Late st Contact Info) Description 06/22/2018 Procedure Pass [place] Admitting Dept - Virtual Department [address] [place] [address] Social History Tobacco Use Types Packs/Day Years [...] on filedocumented in this encounter Care Teams Plasterer Spray Gun Relationship Specialty Start Date End Date Akash Schulz PA-C [address] [facility] [address] [place] [address] PCP - General 09/21/17 09/13/19 Layne Heller PA 299 [facility] [address] [place] [address] PCP - General Unknown Provider Specialty 09/14/19 06/14/22 Ayaka French NP PCP - General Family Medicine 06/15/22 10/12/22 Magali Maxwell NP 185 [facility] 204 [place] [address] PCP - General Family Medicine 10/13/22 Vaughn Reyes MD [address] [place] [phone] Insurance Assigned Provider 01/22/18 01/28/19 documented as of this encounter Additional Source Comments The information contained in this document represents components of the legal health record. It is not the complete legal health record.[facility]
--- OUTSIDE RECORDS SUMMARY | 2025-10-10 08:50 | XMS_ITS | Encounter Summary ---
Author Organization [facility] Address [address] [place] [address] Phone Care Team Providers Care Minister Assistant Name Role Phone Akash Schulz PA-C Primary Care Provider [phone] Vaughn Reyes MD Unavailable [phone] Layne Heller Primary Care Provider [phone] Ayaka French POLICE SUPERINTENDENT Primary Care Provi larry Unavailable Magali Maxwell NP Primary Care Provider [phone] Encounter Details Date Type Department Care Team (Late st Contact Info) Description 07/05/2018 Ancillary Orders [address] [address] Magali Goodman PA-C [address] [place] [address] Orthopedics & Sports Medicine, [facility] [place] [address] [email or web address] Finger pain, left Social History Tobacco Use [...] limb documented in this encounter Care Teams Minister Assistant Relationship Specialty Start Date End Date Akash Schulz PA-C [address] [place] [address] 1 [place] [address] PCP - General 09/21/17 09/13/19 Layne Heller PA [address] [place] [address] 234 [place] [address] PCP - General Unknown Provider Specialty 09/14/19 06/14/22 Ayaka French NP PCP - General Family Medicine 06/15/22 10/12/22 Magali Maxwell NP 185 [facility] 204 [place] [address] PCP - General Family Medicine 10/13/22 Vaughn Reyes MD [address] [place] [phone] [email or web address] Insurance Assigned Provider 01/22/18 01/28/19 documented as of this encounter Additional Source Comments The information contained in this document represents components of the legal health record. It is not the complete legal health record.[facility]
--- OUTSIDE RECORDS SUMMARY | 2025-10-10 08:50 | XMS_ITS | Encounter Summary ---
Author Organization [facility] Address [address] [place] [address] Phone Care Team Providers Care Lead Systems Architect Name Role Phone Akash Schulz PA-C Primary Care Provider [phone] Vaughn Reyes MD Unavailable [phone] Layne Heller Primary Care Provider Ayaka French INSURANCE DEFENSE ATTORNEY Primary Care Provi larry Unavailable Magali Maxwell NP Primary Care Provider [phone] Encounter Details Date Type Department Care Team (Late st Contact Info) Description 05/13/2018 Prep for Surgery [facility] [address] [place] [address] Viry Mccabe MD [address] [place] [address] Orthopedics & Sports Medicine, [facility] [place] [address] Social History Tobacco Use Types Packs/Day Years [...] on filedocumented in this encounter Care Teams Lead Systems Architect Relationship Specialty Start Date End Date Akash Schulz PA-C [address] [place] [address] [address] [place] [address] PCP - General 09/21/17 09/13/19 Layne Heller PA [address] [place] [address] 234 [place] [address] PCP - General Unknown Provider Specialty 09/14/19 06/14/22 Ayaka French NP PCP - General Family Medicine 06/15/22 10/12/22 Magali Maxwell NP [address] [place] [address] PCP - General Family Medicine 10/13/22 Vaughn Reyes MD [address] [place] [phone] [email or web address] Insurance Assigned Provider 01/22/18 01/28/19 documented as of this encounter Additional Source Comments The information contained in this document represents components of the legal health record. It is not the complete legal health record.[facility]
--- OUTSIDE RECORDS SUMMARY | 2025-10-10 08:50 | XMS_ITS | Encounter Summary ---
Author Organization [facility] Address [address] [place] [address] Phone Care Team Providers Care Gas Transfer Operator Name Role Phone Akash Schulz PA-C Primary Care Provider [phone] Vaughn Reyes MD Unavailable [phone] Layne Heller Primary Care Provider Ayaka French SECTION CREWS ACTIVITIES CLERK Primary Care Provi larry Unavailable Magali Maxwell NP Primary Care Provider [phone] Encounter Details Date Type Department Care Team (Late st Contact Info) Description 07/05/2018 Ancillary Orders [facility] [address] [place] [address] Magali Goodman PA-C [address] [place] [address] Orthopedics & Sports Medicine, [place] [address] [email or web address] Social History Tobacco Use [...] on filedocumented in this encounter Care Teams Gas Transfer Operator Relationship Specialty Start Date End Date Akash Schulz PA-C [address] [place] [address] [address] [place] [address] PCP - General 09/21/17 09/13/19 Layne Heller PA [address] [place] [address] [address] [place] [address] PCP - General Unknown Provider Specialty 09/14/19 06/14/22 Ayaka French NP PCP - General Family Medicine 06/15/22 10/12/22 Magali Maxwell NP [address] [place] [address] PCP - General Family Medicine 10/13/22 Vaughn Reyes MD [address] [place] [phone] [email or web address] Insurance Assigned Provider 01/22/18 01/28/19 documented as of this encounter Additional Source Comments The information contained in this document represents components of the legal health record. It is not the complete legal health record.[facility]
--- OUTSIDE RECORDS SUMMARY | 2025-10-10 08:50 | XMS_ITS | Clinical Summary ---
Author Organization [facility] Address [address] [place] [address] Phone Care Team Providers Care Water And Sewer Systems Superintendent Name Role Phone Jennifer Quiroz MD Primary [...] atherosclerotic disease); COMMENT: with stents Pulmonary emphysema (CMS/HCC V24, CMS/HCC V28) DX:Pulmonary emphysema (HCC) History of elevated [...] kg (165 lb 3.2 oz) 01/04/2024 1:49 PM EDT Height - - Body Mass Index [...] - PCV20 or PCV21) 05/25/2024 05/25/2019, 03/14/2013 Depression Screening 10/25/2024 01/04/2024 Falls Risk Assessment [...] on patient's age to complete this topic Lung Cancer Screening (Low Dose CT) Discontinued 10/11/2023, 09/25/2022, 09/24/2021 Abdominal Aortic Aneurysm (AAA) Screen Completed 02/03/2024, [...] * Annual BMP Blood Test (01/05/2024) Pathologist [facility] Annual BMP Blood Test abstracted Historical Provider [...] (01/04/2024) Falls Risk Assessment abstracted Historical Provider HEALTH MAINTENANCE Final Result * Depression Screening (01/04/2024) HM Depression Screening abstracted Historical Provider HEALTH MAINTENANCE Final Result * CT LUNG SCREENING LOW DOSE (10/11/2023 4:23 AM EST) Anatomical Region Laterality Modality Computed Tomogra phy 09/30/2023 7:43 AM EST Narrative 10/11/2023 4:23 AM EST [facility] Diagnostic Imaging Department [address] [place] [address] Patient: SEDRICK HOWE /Age/Sex: 1955 - 68 - M Unit#: [id number] Location/Status: SPDICATLS/REG CLI Mnemonic/Ordering Site: [facility] Ordering Physician: TREVON DONATO [...] Note Alex Malin MD - 11/30/2023 [facility] Diagnostic Imaging Department [address] [place], [place] [address] Patient: SHYAMSEDRICK /Age/Sex: 1955 - 68 - M Unit#: [id number] Location/Status: SPDICATLS/REG CLI Mnemonic/Ordering Site: [facility] Ordering Physician: TREVON DONATO [...] Sign date/Time: 10/11/23 0423 Trevon Donato MD IM CT PROCEDURES Final Result * Colonoscopy (09/14/2019) Colonoscopy no interpretation , abstracted Anatomical Region Laterality Modality Other us Historical Provider HEALTH MAINTENANCE Final Result from Last 3 Months or Most Recently Relevant to Health Maintenance Insurance [employer] MEDICARE Care Teams Water And Sewer Systems Superintendent Relationship Specialty Start Date End Date Jennifer Quiroz MD [address] [place] [address] PCP - General Internal Medicine 10/04/24
--- OUTSIDE RECORDS SUMMARY | 2025-10-10 08:51 | XMS_ITS | Encounter Summary ---
Author Organization [facility] Address [address] [place] [address] Phone Care Team Providers Care Haulpak Driver Name Role Phone Layne Heller Primary Care Provider Ayaka French PHYSICIAN REPRESENTATIVE Primary Care Provi larry [facility] Magali Maxwell PHYSICIAN REPRESENTATIVE Primary Care Provider [phone] Encounter Details Date Type Department Care Team (Late st Contact Info) Description 09/14/2019 Procedure Pass [facility] Endoscopy Admitting Dept Virtual Department [address] [place] [address] Social History Tobacco Use Types Packs/Day Years [...] on filedocumented in this encounter Care Teams Haulpak Driver Relationship Specialty Start Date End Date Layne Heller PA [address] [place] [address] PCP - General Unknown Provider Specialty 09/14/19 06/14/22 Ayaka French NP PCP - General Family Medicine 06/15/22 10/12/22 Magali Maxwell NP [address] [place] [address] [place] [address] PCP - General Family Medicine 10/13/22 documented as of this encounter Additional Source Comments The information contained in this document represents components of the legal health record. It is not the complete legal health record.[facility]
--- OUTSIDE RECORDS SUMMARY | 2025-10-10 08:51 | XMS_ITS | Encounter Summary ---
Author Organization [facility] Address [address] [place] [address] Phone Care Team Providers Care Clinical Rn Liaison Name Role Phone Akash Schulz PA-C Primary Care Provider [phone] Vaughn Reyes MD Unavailable [phone] Layne Heller Primary Care Provider Ayaka French DEVULCANIZER HEAD Primary Care Provi larry Unavailable Magali Maxwell NP Primary Care Provider [phone] Encounter Details Date Type Department Care Team (Latest Contact Info) Description 09/21/2017 Prep for Surgery [facility] [address] [place] [address] Viry Mccabe MD [address] [place] [address] Orthopedics & Sports Medicine, [place] [address] Arthritis of carpometacarpal (CMC) joints of both [...] Primary documented in this encounter Care Teams Clinical Rn Liaison Relationship Specialty Start Date End Date Akash Schulz PA-C [address] [place] [address] [address] [place] [address] PCP - General 09/21/17 09/13/19 Layne Heller PA [address] [place] [address] [address] [place] [address] PCP - General Unknown Provider Specialty 09/14/19 06/14/22 Ayaka French NP PCP - General Family Medicine 06/15/22 10/12/22 Magali Maxwell NP [address] [place] [address] PCP - General Family Medicine 10/13/22 Vaughn Reyes MD [address] [place] [phone] [email or web address] Insurance Assigned Provider 01/22/18 01/28/19 documented as of this encounter Additional Source Comments The information contained in this document represents components of the legal health record. It is not the complete legal health record.[facility]
--- OUTSIDE RECORDS SUMMARY | 2025-10-10 08:51 | XMS_ITS | Encounter Summary ---
Author Organization [facility] Address [address] [facility] [address] [place] [address] Phone Care Team Providers Care Abrasive Coating Machine Operator Name Role Phone Akash Schulz PA-C Primary Care Provider [phone] Vaughn Reyes MD Unavailable [phone] Layne Heller Primary Care Provider Ayaka French ELEMENTARY SPECIAL EDUCATION TEACHER Primary Care Provi larry Unavailable Magali Maxwell NP Primary Care Provider [phone] Encounter Details Date Type Department Care Team (Late st Contact Info) Description 10/13/2017 Procedure Pass OR Admitting Dept - Virtual Department [address] [place] [address] Social History Tobacco Use Types Packs/Day Years [...] on filedocumented in this encounter Care Teams Abrasive Coating Machine Operator Relationship Specialty Start Date End Date Akash Schulz PA-C [address] [facility] [address] [place] [address] PCP - General 09/21/17 09/13/19 Layne Heller PA [address] [facility] [address] [place] [address] PCP - General Unknown Provider Specialty 09/14/19 06/14/22 Ayaka French NP PCP - General Family Medicine 06/15/22 10/12/22 Magali Maxwell NP [address] [facility] 204 [place] [address] PCP - General Family Medicine 10/13/22 Vaughn Reyes MD [address] [place] [phone] [email or web address] Insurance Assigned Provider 01/22/18 01/28/19 documented as of this encounter Additional Source Comments The information contained in this document represents components of the legal health record. It is not the complete legal health record.[facility]
--- OUTSIDE RECORDS SUMMARY | 2025-10-10 08:51 | XMS_ITS | Encounter Summary ---
Author Organization [facility] Address [address] [place] [address] Phone Care Team Providers Care Spot Welder Line Name Role Phone Akash Schulz PA-C Primary Care Provider [phone] Vaughn Reyes MD Unavailable [phone] Layne Heller Primary Care Provider Ayaka French FLOWER STRIPPER Primary Care Provi larry Unavailable Magali Maxwell NP Primary Care Provider [phone] Encounter Details Date Type Department Care Team (Late st Contact Info) Description 10/21/2017 Ancillary Orders [facility] [address] [place] [address] Magali Goodman PA-C [address] [place] [address] Orthopedics & Sports Medicine, [place] [address] [email or web address] [...] on filedocumented in this encounter Care Teams Spot Welder Line Relationship Specialty Start Date End Date Akash Schulz PA-C [address] [place] [address] [address] [place] [address] PCP - General 09/21/17 09/13/19 Layne Heller PA [address] [place] [address] 234 [place] [address] PCP - General Unknown Provider Specialty 09/14/19 06/14/22 Ayaka French NP PCP - General Family Medicine 06/15/22 10/12/22 Magali Maxwell NP [address] [place] [address] PCP - General Family Medicine 10/13/22 Vaughn Reyes MD [address] [place] [phone] [email or web address] Insurance Assigned Provider 01/22/18 01/28/19 documented as of this encounter Additional Source Comments The information contained in this document represents components of the legal health record. It is not the complete legal health record.[facility]
--- OUTSIDE RECORDS SUMMARY | 2025-10-10 08:51 | XMS_ITS | Encounter Summary ---
Author Organization [facility] Address [address] [place] [address] Phone Care Team Providers Care Learning And Development Assistant Name Role Phone Akash Schulz PA-C Primary Care Provider [phone] Vaughn Reyes MD Unavailable [phone] Layne Heller Primary Care Provider Ayaka French FIELD OPERATIONS COORDINATOR Primary Care Provi larry Unavailable Magali Maxwell NP Primary Care Provider [phone] Encounter Details Date Type Department Care Team (Late st Contact Info) Description 10/21/2017 Ancillary Orders [address] [address] Magali Goodman PA-C [address] [place] [address] Orthopedics & Sports Medicine, [facility] [place] [address] [email or web address] Pain of finger, unspecified laterality Social History [...] laterality documented in this encounter Care Teams Learning And Development Assistant Relationship Specialty Start Date End Date Akash Schulz PA-C [address] [place] [address] 1 [place] [address] PCP - General 09/21/17 09/13/19 Layne Heller PA [address] [place] [address] 234 [place] [address] PCP - General Unknown Provider Specialty 09/14/19 06/14/22 Ayaka French NP PCP - General Family Medicine 06/15/22 10/12/22 Magali Maxwell NP [address] [place] [address] 204 [place] [address] PCP - General Family Medicine 10/13/22 Vaughn Reyes MD [address] [place] [phone] [email or web address] Insurance Assigned Provider 01/22/18 01/28/19 documented as of this encounter Additional Source Comments The information contained in this document represents components of the legal health record. It is not the complete legal health record.[facility]
== END 2025-10-10 09:07 | disposition home or self-care (01) ==
LOC: HO.HMCFM 08:34
PROVIDERS: PCP Family Medicine; Visit Provider Family Medicine
DX: I10 Essential (primary) hypertension (principal); I25.10 Atherosclerotic heart disease of native coronary artery without angina pectoris; R73.03 Prediabetes; D64.9 Anemia, unspecified

== ENCOUNTER 2025-10-11 07:53 | Outpatient (REF) | payer OTHER, SELFPAY ==
--- NOTE | ~2025-10-11 | US_ITS ---
CLINICAL HISTORY: R10.9 - Unspecified abdominal pain US abdomen complete Comparison: CT - CT ABDOMEN PELVIS WO/W IV CON - 04/18/25 14:05 EDT Findings: The visualized pancreas is normal, pancreatic tail is not well seen due to bowel gas shadowing. The visualized aorta and inferior vena cava are normal caliber. The liver is normal in size, right lobe length is 15.5 cm. Normal in echogenicity, no discrete lesion is visualized in the imaged liver. No intrahepatic bile duct dilatation. The common duct is 4 mm in diameter. 2 mm gallbladder polyp, otherwise normal gallbladder. Negative sonographic Petty sign. The main portal vein is patent with antegrade flow. The right kidney is unremarkable, 12 cm in length. Simple cyst 2 cm in the lower pole. The left kidney is unremarkable, 11.3 cm in length. Simple cyst 1.3 cm in the lower pole. The spleen is normal, 10.3 cm in length. No free fluid in the abdomen. Impression: 1. 2 mm gallbladder polyp. 2. Bilateral renal simple cysts. This document has been electronically signed by: Racheal Galindo MD on 10/11/2025 13:54:06
--- NOTE | ~2025-10-11 | XR_ITS ---
EXAMINATION: XR RIBS, RIGHT CLINICAL INFORMATION: Right side rib pain. COMPARISON: None available. TECHNIQUE: 4 views of the right ribs were obtained. FINDINGS: Lungs are clear. No consolidation, pneumothorax, or pleural effusion. Hazy opacity along the inferior left cardiac silhouette, could reflect atelectasis or scarring. The cardiomediastinal silhouette and pulmonary vasculature are normal. No acute displaced rib fracture is identified. XR/XR ribs RT min 3V w CXR1V IMPRESSION: Hazy opacity along the inferior left cardiac silhouette could reflect atelectasis/scarring. No acute displaced rib fracture seen. Electronically signed by: Matthias Grimaldo MD 10/11/2025 02:08 PM ANDREA
--- OUTSIDE RECORDS SUMMARY | 2025-10-11 07:58 | XMS_ITS | Encounter Summary ---
Author Organization [facility] Address [address] [place] [address] Phone Care Team Providers Care Quality Control Supervisor Name Role Phone Akash Schulz PA-C Primary Care Provider [phone] Vaughn Reyes MD Unavailable [phone] Layne Heller Primary Care Provider Ayaka French SOLAR ENERGY TECHNICIAN Primary Care Provi larry Unavailable Magali Maxwell NP Primary Care Provider [phone] Encounter Details Date Type Department Care Team (Latest Contact Info) Description 09/21/2017 Prep for Surgery [facility] [address] [place] [address] Viry Mccabe MD [address] [place] [address] Orthopedics & Sports Medicine, [place] [address] Arthritis of carpometacarpal (CMC) joints of both [...] Primary documented in this encounter Care Teams Quality Control Supervisor Relationship Specialty Start Date End Date Akash Schulz PA-C [address] [place] [address] [address] [place] [address] PCP - General 09/21/17 09/13/19 Layne Heller PA [address] [place] [address] 234 [place] [address] PCP - General Unknown Provider Specialty 09/14/19 06/14/22 Ayaka French NP PCP - General Family Medicine 06/15/22 10/12/22 Magali Maxwell NP [address] [place] [address] PCP - General Family Medicine 10/13/22 Vaughn Reyes MD [address] [place] [phone] [email or web address] Assigned Provider 01/22/18 01/28/19 documented as of this encounter Additional Source Comments The information contained in this document represents components of the legal health record. It is not the complete legal health record.[facility]
--- OUTSIDE RECORDS SUMMARY | 2025-10-11 07:58 | XMS_ITS | Clinical Summary ---
Author Organization [facility] Address [address] [place] [address] Phone Care Team Providers Care Board Filler Name Role Phone Jennifer Quiroz MD Primary [...] * Annual BMP Blood Test (01/05/2024) Pathologist [facility] Annual BMP Blood Test abstracted Historical Provider [...] [facility] Diagnostic Imaging Department [address] [place] [address] Patient: SEDRICK HOWE /Age/Sex: 1955 - 68 - M Unit#: [id number] Location/Status: SPDICATLS/REG CLI Mnemonic/Ordering Site: [facility] Ordering Physician: TREVON DONATO MD CT Lung [...] [facility] Diagnostic Imaging Department [address] [place], [place] [id number] Patient: SHYAMSEDRICK /Age/Sex: 1955 - 68 - M Unit#: [id number] Location/Status: SPDICATLS/REG CLI Mnemonic/Ordering Site: [facility] Ordering Physician: TREVON DONATO MD CT Lung [...] Maintenance Insurance [employer] MEDICARE Care Teams Board Filler Relationship Specialty Start Date End Date Jennifer Quiroz MD [address] [place] [address] PCP - General Internal Medicine 10/04/24
--- OUTSIDE RECORDS SUMMARY | 2025-10-11 07:58 | XMS_ITS | Encounter Summary ---
Author Organization [facility] Address [address] [place] [address] Phone Care Team Providers Care Licensed Certified Orthotist Name Role Phone Akash Schulz PA-C Primary Care Provider [phone] Vaughn Reyes MD Unavailable [phone] Layne Heller Primary Care Provider Ayaka French SILVER BRAZER Primary Care Provi larry Unavailable Magali Maxwell NP Primary Care Provider [phone] Encounter Details Date Type Department Care Team (Late st Contact Info) Description 07/05/2018 Ancillary Orders [address] [address] Magali Goodman PA-C [address] [place] [address] Orthopedics & Sports Medicine, [facility] [place] [address] [email or web address] Finger pain, left Social [...] limb documented in this encounter Care Teams Licensed Certified Orthotist Relationship Specialty Start Date End Date Akash Schulz PA-C [address] [place] [address] 1 [place] [address] PCP - General 09/21/17 09/13/19 Layne Heller PA [address] [place] [address] 234 [place] [address] PCP - General Unknown Provider Specialty 09/14/19 06/14/22 Ayaka French NP PCP - General Family Medicine 06/15/22 10/12/22 Magali Maxwell NP 185 [facility] 204 [place] [address] PCP - General Family Medicine 10/13/22 Vaughn Reyes MD [address] [place] [phone] [email or web address] Insurance Assigned Provider 01/22/18 01/28/19 documented as of this encounter Additional Source Comments The information contained in this document represents components of the legal health record. It is not the complete legal health record.[facility]
--- OUTSIDE RECORDS SUMMARY | 2025-10-11 07:58 | XMS_ITS | Clinical Summary ---
Author Organization [facility] Address [address] [place] [address] Phone Care Team Providers Care Cotton Classer Aide Name Role Phone Magali Maxwell NP Primary Care Provider [phone] Allergies Active Allergy Reactions Criticality Noted Date [...] SAME MEAL Active cyanocobalamin/fol ic acid (VITAMIN Z41-DAKPX ACID) 1,000-400 mcg Lozg 1 tablet. A [...] like to get the blood work from [facility] to make sure his LDL is [...] this topic Medical Devices Implanted Type Area Jewel Flat Surfacer Device Identifier Shelf Expiration Date Model / Serial / Lot Cardiac Stents Mesh In Abdomen Macomb Suture 2.3mmxsz 0 Absorbable Ethibond Mini Macomb - [id number] Implanted:Qty: 1 on 10/13/2017 by Viry Mccabe MD at [facility] Right: Hand [employer] 06/24/2021 [id number] / / [id number] Macomb Suture 0 Os2 36in 2.3mm Arthroscopy Ethibond Quickanchor Double Arm Mini Absorbable - [id number] Implanted:Qty: 1 on 06/22/2018 by Viry Mccabe MD at [facility] Left: Hand [employer] 09/23/2022 [id number] / / [id number] Procedures Procedure Name Priority Date/Time Associated Diagnosis [...] 66 Admit Type: Outpatient Gender: Male Room: [place] [address] Referring MD: Layne Heller PA-C Exam Type: [...] monitored continuously. The Olympus adult variable colonoscope [id number] #[id number] was introduced through the anus and [...] 10:29 AM Procedure Code(s): --- Professional --- 46765, Colonoscopy, flexible; diagnostic, including collection of specimen(s) by brushing or washing, when performed (separateprocedure) --- Technical --- 97988, Colonoscopy, flexible; diagnostic, including collection of specimen(s) by brushing or washing, when performed (separateprocedure) Diagnosis Code(s): --- Professional --- Z12.11, Encounter for screening for malignant neoplasm of colon K57.30, Diverticulosis of large intestine without perforation orabscess without bleeding --- Technical --- Z12.11, Encounter for screening for malignant neoplasm of colon K57.30, Diverticulosis of large intestine without perforation orabscess without bleeding CPT copyright 2018 [employer]. All rights reserved. The codes documented in this report are preliminary and upon software project engineer reviewmay be revised to meet current compliance requirements. [address] [place] [address] Layne MORTON GI PROCEDURE ORDERABLES Fin al Result * (ABNORMAL) Basic metabolic panel (01/09/2019 10:51 AM EDT) SODIUM 143 133 - 146 mmol/L [facility] CHLORIDE 103 96 - 108 mmol/L [facility] POTASSIUM 4.7 3.3 - 5.1 mmol/L [facility] CO2 24 21 - 35 mmol/L [facility] BUN 19 6 - 19 mg/dL [facility] CREATININE 0.70 0.5 - 1.5 mg/dL [facility] GLUCOSE 97 70 - 99 mg/dL [facility] CALCIUM 8.7 8.4 - 10.3 mg/dL [facility] EGFR 99 >59 mL/min/1.7 3m2 [facility] Comment:If patient is black, multiply result by 1.159. Estimated glomerular filtration rate calculated using the CKD-EPI equation. ANION GAP 21(H) 10 - 20 mmol/L [facility] Blood 01/09/2019 10:5 1 AM EDT 01/09/2019 10:53 AM EDT Kristy MORTON LAB BLOOD BKR ORDERABLES F inal Result [address] [address] from Last 3 Months or Most Recently Relevant to Health Maintenance Insurance PPO AARP MEDICARE REPLACEMENT MEDICARE REPLACEMENT [facility] MEDICARE REPLACEMENT [facility] MEDICARE REPLACEMENT MEDICARE REPLACEMENT MEDICARE REPLACEMENT [facility] MEDICARE REPLACEMENT MEDICARE REPLACEMENT MEDICARE REPLACEMENT Advance Directives For more information, please contact: [phone] (9AM - 5PM [facility], Wednesday-Wednesday) * Full Code (Presumed) (Latest Code Status on File) Date Activated Date Inactivated Comments 10/13/2017 8:59 AM 10/13/2017 3:11 PM Care Teams Cotton Classer Aide Relationship Specialty Start Date End Date Magali Maxwell NP [address] [address] PCP - General Family Medicine 10/13/22 Additional Source Comments The information contained in this document represents components of the legal health record. It is not the complete legal health record.[facility]
--- OUTSIDE RECORDS SUMMARY | 2025-10-11 07:58 | XMS_ITS | Encounter Summary ---
Author Organization [facility] Address [address] [place] [address] Phone Care Team Providers Care Truck Assembler Name Role Phone Akash Schulz PA-C Primary Care Provider [phone] Vaughn Reyes MD Unavailable [phone] Layne Heller Primary Care Provider Ayaka French CLIENT ENGAGEMENT MANAGER Primary Care Provi larry Unavailable Magali Maxwell NP Primary Care Provider [phone] Encounter Details Date Type Department Care Team (Late st Contact Info) Description 07/05/2018 Ancillary Orders [facility] [address] [place] [address] Magali Goodman PA-C [address] [place] [address] Orthopedics & Sports Medicine, [place] [address] [email or web address] Social History Tobacco [...] on filedocumented in this encounter Care Teams Truck Assembler Relationship Specialty Start Date End Date Akash Schulz PA-C [address] [place] [address] [address] [place] [address] PCP - General 09/21/17 09/13/19 Layne Heller PA [address] [place] [address] [address] [place] [address] PCP - General Unknown Provider Specialty 09/14/19 06/14/22 Ayaka French NP PCP - General Family Medicine 06/15/22 10/12/22 Magali Maxwell NP [address] [place] [address] PCP - General Family Medicine 10/13/22 Vaughn Reyes MD [address] [place] [phone] [email or web address] Insurance Assigned Provider 01/22/18 01/28/19 documented as of this encounter Additional Source Comments The information contained in this document represents components of the legal health record. It is not the complete legal health record.[facility]
--- OUTSIDE RECORDS SUMMARY | 2025-10-11 07:59 | XMS_ITS | Encounter Summary ---
Author Organization [facility] Address [address] [place] [address] Phone Care Team Providers Care Cuff Maker Name Role Phone Akash Schulz PA-C Primary Care Provider [phone] Vaughn Reyes MD Unavailable [phone] Layne Heller Primary Care Provider Ayaka French PETROPHYSICIST Primary Care Provi larry Unavailable Magali Maxwell NP Primary Care Provider [phone] Encounter Details Date Type Department Care Team (Late st Contact Info) Description 10/21/2017 Ancillary Orders [facility] [address] [place] [address] Magali Goodman PA-C [address] [place] [address] Orthopedics & Sports Medicine, [place] [address] [email or web address] Social History Tobacco Use Types Packs/Day Years [...] on filedocumented in this encounter Care Teams Cuff Maker Relationship Specialty Start Date End Date Akash Schulz PA-C [address] [place] [address] [address] [place] [address] PCP - General 09/21/17 09/13/19 Layne Heller PA [address] [place] [address] 234 [place] [address] PCP - General Unknown Provider Specialty 09/14/19 06/14/22 Ayaka French NP PCP - General Family Medicine 06/15/22 10/12/22 Magali Maxwell NP [address] [place] [address] PCP - General Family Medicine 10/13/22 Vaughn Reyes MD [address] [place] [phone] [email or web address] Insurance Assigned Provider 01/22/18 01/28/19 documented as of this encounter Additional Source Comments The information contained in this document represents components of the legal health record. It is not the complete legal health record.[facility]
== END 2025-10-11 07:54 | disposition home or self-care (01) ==
LOC: HO.US 07:53
PROVIDERS: PCP Family Medicine; Visit Provider Family Medicine
DX: R07.81 Pleurodynia (principal); R10.9 Unspecified abdominal pain
CPT/HCPCS: 71101; 76700